=== PATIENT | female | born 1935 | race Caucasian/White ===

== ENCOUNTER → 2016-10-03 | Outpatient (CLI) | payer OTHER, BC ==
--- NOTE | 2016-10-03 15:05 | DIAGNOSTIC IMAGING REPORT ---
L-SPINE MIN 4 VIEWS ROUTINE CLINICAL HISTORY: 80 years-old Female presenting with Acute left-sided low back pain without sciatica lumbar pain. TECHNIQUE: Frontal, lateral, and bilateral oblique views of the lumbar spine were obtained. COMPARISON: None. FINDINGS: Vertebral body heights are maintained. 5 mm of grade 1 anterolisthesis of L3 on L4. Intervertebral disc spaces preserved. No gross evidence of osseous neural foraminal narrowing. Atherosclerosis. Normal bowel gas pattern. Numerous pelvic phleboliths noted. IMPRESSION: 1. Grade 1 anterolisthesis of L3 on L4. Electronically signed by: Corbin Rai 10/03/2016 3:03 PM Dictated Date/Time: 10/03/2016 3:01 PM
[2016-10-03 15:42] LABS: BASO % 1.5 %; BASO ABS # 0.09 K/uL (0-0.2); COMPLETE YES; EOS % 2.6 %; HEMATOCRIT 42.2 % (37-47); IG% 1.1 %; LYMPH % 20.3 %; LYMPH ABS # 1.24 K/uL (1.2-3.4); MEAN CELL VOLUME 90.8 fL (80-100); MEAN CORPUSCULAR HEMOGLOBIN 29.7 pg (25-34); MEAN CORPUSCULAR HGB CONC 32.7 g/dl (32-36); MEAN PLATELET VOLUME 10.6 fL (7.4-10.4); NEUT % 65.5 %; PLATELET COUNT 237 K/uL (130-400); RED BLOOD COUNT 4.65 M/uL (4.2-5.4); WHITE BLOOD COUNT 6.11 K/uL (4.8-10.8)
[2016-10-03 15:50] LABS: URINE APPEARANCE CLEAR (CLEAR); URINE BILIRUBIN NEG (NEG); URINE COLOR YELLOW; URINE NITRITE NEG (NEG); URINE SPECIFIC GRAVITY 1.022 (1.000-1.030); UROBILINOGEN NEG (NEG)
[2016-10-03 16:02] LABS: MANUAL MICROSCOPIC REQUIRED? NO; REVIEW REQ? NO
[2016-10-03 16:08] LABS: ALT/SGPT 25 U/L (12-78); BLOOD UREA NITROGEN 23 mg/dl (7-18); BUN/CREATININE RATIO 23.6 (10-20); CALCIUM 9.5 mg/dl (8.5-10.1); CARBON DIOXIDE 25 mmol/L (21-32); CHLORIDE 110 mmol/L (98-107); CREATININE 0.96 mg/dl (0.60-1.20); GLUCOSE 92 mg/dl (70-99); POTASSIUM 4.4 mmol/L (3.5-5.1); SODIUM 141 mmol/L (136-145)
[2016-10-03 16:11] LABS: ALKALINE PHOSPHATASE 85 U/L (45-117); AST/SGOT 19 U/L (15-37)
== END | disposition home or self-care (01) ==
LOC: C.RAD 14:17
PROVIDERS: ATTEND Nurse Practitioner
DX: M54.5 Low back pain (principal)

== ENCOUNTER → 2016-11-06 | Outpatient (CLI) | payer OTHER, BC ==
--- NOTE | 2016-11-06 12:24 | DIAGNOSTIC IMAGING REPORT ---
LEFT KNEE 1 OR 2 VIEWS ROUTINE CLINICAL HISTORY: M79.662 Pain in patel, left with tibial pain and tenderness. R pain COMPARISON: None. DISCUSSION: Moderate degenerative change all major joint compartments. Osteophytic change superior patella. Potential small loose body secondary to an old avulsion of the superior osteophyte. Margins are well corticated. No significant joint effusion. No acute bony abnormality. There is no evidence for soft tissue swelling. IMPRESSION: Degenerative change. No acute bony abnormality. The above report was generated using voice recognition software. It may contain grammatical, syntax or spelling errors. Electronically signed by: Derrick Estrada M.D. 11/06/2016 12:23 PM Dictated Date/Time: 11/06/2016 12:22 PM
== END | disposition home or self-care (01) ==
LOC: C.RAD 11:54
PROVIDERS: ATTEND Family Medicine
DX: M79.662 Pain in left lower leg (principal); M17.12 Unilateral primary osteoarthritis, left knee

== ENCOUNTER → 2016-11-07 | Outpatient (CLI) | payer OTHER, BC ==
--- NOTE | 2016-11-07 18:38 | DIAGNOSTIC IMAGING REPORT ---
LEFT TIBIA/FIBULA 2 VIEWS ROUTINE CLINICAL HISTORY: Left patel pain. COMPARISON: None. DISCUSSION: No acute fractures are visualized. There is Achilles insertional spur and plantar calcaneal spur. There are no erosive or destructive changes. No soft tissue masses are visualized on conventional radiographic imaging. Degenerative changes are present within the knee. There is a suspected posterior loose body. IMPRESSION: 1. No fractures identified 2. No destructive lesions are visualized. No evidence of pathologic periostitis. Electronically signed by: Anderson Nichole M.D. 11/07/2016 6:37 PM Dictated Date/Time: 11/07/2016 6:36 PM
== END | disposition home or self-care (01) ==
LOC: C.RAD 18:16
PROVIDERS: ATTEND Family Medicine
DX: M79.662 Pain in left lower leg (principal)

== ENCOUNTER → 2016-12-11 | Outpatient (CLI) | payer OTHER, BC ==
[2016-12-11 17:27] LABS: URINE APPEARANCE CLEAR (CLEAR); URINE BILIRUBIN NEG (NEG); URINE COLOR YELLOW; URINE NITRITE NEG (NEG); URINE PH 5.5 (4.5-7.5); URINE SPECIFIC GRAVITY 1.025 (1.000-1.030); UROBILINOGEN NEG (NEG)
[2016-12-11 17:34] LABS: MANUAL MICROSCOPIC REQUIRED? NO; REVIEW REQ? NO
[2016-12-11 17:45] LABS: CHOLESTEROL/HDL RATIO 3.4
[2016-12-12 06:17] LABS: ESTIMATED AVERAGE GLUCOSE 126 mg/dl; HA1C FLAG Normal (Normal)
--- NOTE | 2016-12-20 12:41 | CODING QUERY MEDICAL NECESSITY ---
SUPPORTING DIAGNOSIS NEEDED A supporting diagnosis is required for the test/procedure performed on this patient in order for us to be reimbursed by the patient's insurance. Please provide a supporting diagnosis for the following test/procedure listed below next to the test name along with your signature. *If there is no additional diagnosis for this patient that would support the following test/procedure please document that below next to the test/procedure. Test(s)/Procedure(s) that require a supporting diagnosis: * VITAMIN B12 DIAGNOSIS: * FOLIC ACID DIAGNOSIS: * HEMOGLOBIN A1C DIAGNOSIS: Provider Signature: Date: Thank you Tori Chaney [employer] Once completed, please kindly fax back to [phone] For questions please call [phone]
== END | disposition home or self-care (01) ==
LOC: C.LAB 15:31
PROVIDERS: ATTEND Nurse Practitioner Adult Health
DX: G31.84 Mild cognitive impairment of uncertain or unknown etiology (principal); E78.5 Hyperlipidemia, unspecified; Z13.1 Encounter for screening for diabetes mellitus

== ENCOUNTER → 2016-12-17 | Outpatient (CLI) | payer OTHER, BC ==
--- NOTE | 2016-12-17 12:30 | DIAGNOSTIC IMAGING REPORT ---
BRAIN WITHOUT CONTRAST CLINICAL HISTORY: 81 years-old Female presenting with cognitive impairment. TECHNIQUE: Multisequence, multiplanar MR imaging of the brain was performed without the use of intravenous contrast. IV contrast: None. COMPARISON: None. FINDINGS: Ventricles and sulci normal in size. Minimal periventricular and subcortical white matter T2/FLAIR hyperintensity, nonspecific but likely indicative of chronic small vessel ischemic change. No mass effect or midline shift. No restricted diffusion to suggest acute ischemia. No hemorrhage. No extra-axial fluid collection. T2 skull base flow voids preserved. Bone marrow signal intensity within the calvarium within normal limits. The bilateral prairie band lenses of the globes are absent. IMPRESSION: 1. No acute intracranial abnormality. Electronically signed by: Corbin Rai M.D. 12/17/2016 12:28 PM Dictated Date/Time: 12/17/2016 12:26 PM
== END | disposition home or self-care (01) ==
LOC: C.MRI 10:56
PROVIDERS: ATTEND Nurse Practitioner Adult Health
DX: G31.84 Mild cognitive impairment of uncertain or unknown etiology (principal)

== ENCOUNTER → 2017-03-05 | Outpatient (CLI) | payer OTHER, BC ==
[2017-03-05 17:39] LABS: BASO ABS # 0.06 K/uL (0-0.2); COMPLETE YES; EOS % 2.2 %; HEMATOCRIT 38.3 % (37-47); IG% 0.7 %; LYMPH % 18.3 %; LYMPH ABS # 1.08 K/uL (1.2-3.4); MEAN CELL VOLUME 92.1 fL (80-100); MEAN CORPUSCULAR HEMOGLOBIN 28.4 pg (25-34); MEAN CORPUSCULAR HGB CONC 30.8 g/dl (32-36); MEAN PLATELET VOLUME 11.1 fL (7.4-10.4); MONO % 9.3 %; NEUT % 68.5 %; PLATELET COUNT 276 K/uL (130-400); RED BLOOD COUNT 4.16 M/uL (4.2-5.4); WHITE BLOOD COUNT 5.91 K/uL (4.8-10.8)
== END | disposition home or self-care (01) ==
LOC: C.LABPBG 12:55
PROVIDERS: ATTEND Family Medicine
DX: D64.9 Anemia, unspecified (principal)

== ENCOUNTER → 2017-04-07 | Outpatient (CLI) | payer OTHER, BC ==
[2017-04-07 13:04] LABS: BASO % 1.1 %; BASO ABS # 0.08 K/uL (0-0.2); EOS % 1.6 %; EOS ABS # 0.12 K/uL (0-0.5); HEMATOCRIT 41.9 % (37-47); HEMOGLOBIN 13.3 g/dL (12.0-16.0); IG# 0.08 K/uL (0.00-0.02); LYMPH % 14.5 %; LYMPH ABS # 1.07 K/uL (1.2-3.4); MEAN CELL VOLUME 88.6 fL (80-100); MEAN CORPUSCULAR HEMOGLOBIN 28.1 pg (25-34); MEAN CORPUSCULAR HGB CONC 31.7 g/dl (32-36); MEAN PLATELET VOLUME 10.7 fL (7.4-10.4); MONO % 7.2 %; MONO ABS # 0.53 K/uL (0.11-0.59); NEUT % 74.5 %; NEUT ABS # 5.49 K/uL (1.4-6.5); PLATELET COUNT 284 K/uL (130-400); RED CELL DISTRIBUTION WIDTH CV 14.6 % (11.5-14.5); RED CELL DISTRIBUTION WIDTH SD 47.2 fL (36.4-46.3); WHITE BLOOD COUNT 7.37 K/uL (4.8-10.8)
== END | disposition home or self-care (01) ==
LOC: C.LABPBG 08:22
PROVIDERS: ATTEND Family Medicine
DX: D64.9 Anemia, unspecified (principal)

== ENCOUNTER → 2017-08-20 | Outpatient (CLI) | payer OTHER, BC ==
[2017-08-20 13:30] LABS: BASO % 1.8 %; BASO ABS # 0.09 K/uL (0-0.2); EOS % 4.9 %; EOS ABS # 0.24 K/uL (0-0.5); HEMATOCRIT 44.4 % (37-47); HEMOGLOBIN 14.6 g/dL (12.0-16.0); IG# 0.05 K/uL (0.00-0.02); LYMPH % 24.2 %; LYMPH ABS # 1.18 K/uL (1.2-3.4); MEAN CELL VOLUME 89.2 fL (80-100); MEAN CORPUSCULAR HEMOGLOBIN 29.3 pg (25-34); MEAN CORPUSCULAR HGB CONC 32.9 g/dl (32-36); MEAN PLATELET VOLUME 10.5 fL (7.4-10.4); MONO % 10.5 %; MONO ABS # 0.51 K/uL (0.11-0.59); NEUT % 57.6 %; PLATELET COUNT 261 K/uL (130-400); RED CELL DISTRIBUTION WIDTH CV 14.5 % (11.5-14.5); RED CELL DISTRIBUTION WIDTH SD 47.4 fL (36.4-46.3); WHITE BLOOD COUNT 4.87 K/uL (4.8-10.8)
[2017-08-20 13:46] LABS: HEMOGLOBIN A1C 5.9 % (4.5-5.6)
[2017-08-20 14:35] LABS: ALT/SGPT 21 U/L (12-78); AST/SGOT 20 U/L (15-37); BLOOD UREA NITROGEN 14 mg/dl (7-18); CALCIUM 9.9 mg/dl (8.5-10.1); CARBON DIOXIDE 26 mmol/L (21-32); CHOLESTEROL 259 mg/dl (0-200); CREATININE 0.88 mg/dl (0.60-1.20); GLUCOSE 110 mg/dl (70-99); LDL CHOLESTEROL CALCULATED 155 mg/dl; POTASSIUM 4.5 mmol/L (3.5-5.1); SODIUM 140 mmol/L (136-145)
== END | disposition home or self-care (01) ==
LOC: C.LABPBG 07:58
PROVIDERS: ATTEND Family Medicine
DX: D64.9 Anemia, unspecified (principal); E78.5 Hyperlipidemia, unspecified; R73.03 Prediabetes

== ENCOUNTER 2018-10-05 17:05 | Observation (INO) ==
[2018-10-05] MEDS ORDERED: HydrALAZINE HCL 20 MG/ML VIAL IV ONE ×2 (18:13→19:52)
[2018-10-05 18:45] LABS: Basophils % (auto) 1.4 %; Eosinophils # (auto) 0.17 K/uL (0-0.5); Eosinophils % (auto) 2.4 %; Hematocrit (blood only) 45.2 % (37-47); Hemoglobin 15.3 g/dL (12.0-16.0); Immature Granulocytes # (auto) 0.07 K/uL (0.00-0.02); Lymphocytes # (auto) 1.55 K/uL (1.2-3.4); Mean Corpuscular Hgb Conc 33.8 g/dL (32-36); Mean Corpuscular Volume 89.3 fL (80-100); Monocytes # (auto) 0.78 K/uL (0.11-0.59); Monocytes % (auto) 11.1 %; Neutrophils # (auto) 4.36 K/uL (1.4-6.5); Neutrophils % (auto) 62.1 %; Platelet Count 246 K/uL (130-400); RDW Standard Deviation 45.7 fL (36.4-46.3); Red Blood Count 5.06 M/uL (4.2-5.4); White Blood Count 7.03 K/uL (4.8-10.8)
[2018-10-05 19:00] LABS: Partial Thromboplastin Time 25.9 Seconds (21.0-31.0); Prothrombin Time 10.2 Seconds (9.0-12.0)
[2018-10-05 19:01] LABS: Alanine Aminotransferase 22 U/L (12-78); Albumin Level 3.8 gm/dl (3.4-5.0); Aspartate Aminotransferase 15 U/L (15-37); BUN Creatinine Ratio 29.6 (10-20); Blood Urea Nitrogen 26 mg/dl (7-18); Calcium 9.9 mg/dl (8.5-10.1); Carbon Dioxide 27 mmol/L (21-32); Chloride 108 mmol/L (98-107); Creatinine Clr Calc Pharmacy 56.2 ml/min; Est GFR (African American) 72.4; Est GFR (Non-African American) 62.5; Glucose 92 mg/dl (70-99); Magnesium 2.2 mg/dl (1.8-2.4); Potassium 4.5 mmol/L (3.5-5.1); Sodium 141 mmol/L (136-145)
[2018-10-05 19:06] LABS: Albumin Globulin Ratio 1.1 (0.9-2); Alkaline Phosphatase 123 U/L (45-117); Bilirubin,Total 0.8 mg/dl (0.2-1); Globulin 3.5 gm/dl (2.5-4.0); Total Protein 7.3 gm/dl (6.4-8.2); Troponin I < 0.015 ng/ml (0-0.045)
--- NOTE | 2018-10-05 19:18 | Emergency Department Note ---
Entered by Latanya Waller acting as a scribe for History of Present Illness General Chief complaint: Referred by Doctor Stated complaint: DOUBLE VISION Source: patient History of Present Illness Onset (ago): day(s) (several ) Location: eyes Pain Consistency: + other (persistent ) Maximum Pain Intensity: 4 Quality: + other (double vision) Associated symptoms: + headaches (intermittent) and + other (negative speech difficulties); no weakness The patient is a 82 year old female who presents to the Emergency Room with complaints of persistent double vision that began several days prior to arrival. The patient states that she has had an intermittent headache during this time and states that she currently has one. She denies weakness and speech difficulties. The patient states that she went to the eye doctor today and sent to the ED. The patient denies any medical history, and states that she is not currently on blood thinners or blood pressure medications. She denies being a smoker. Home Medications Home Medications Medication Instructions Recorded Confirmed Type atorvastatin 20 mg tablet 20 mg PO DAILY #90 tab 09/07/18 10/05/18 Rx latanoprost 1 drp OPR HS 10/05/18 10/05/18 History Allergies Allergy/AdvReac Type Severity Reaction Status Date / Time No Known Allergies Allergy Unverified 10/05/18 18:17 Past Med/Surg History Medical History No significant past medical history Social History Feels Safe at Home: Yes Smoking Status: Never smoker Review of Systems See HPI for pertinent positives & negatives. and A total of 10 systems reviewed and were otherwise negative Physical Exam Vital Signs Vital Signs - 24 hr 10/05/18 17:09 10/05/18 19:05 10/05/18 19:49 Temperature 36.5 C Temperature Source Oral Sepsis Recent Fever Within 48 Hours No Sepsis Action Taken by Nursing No Action Required Pulse Rate 85 Pulse Rate [Right Finger] 82 85 Respiratory Rate 18 18 18 Respiratory Effort / Characteristics Non-Labored Spontaneous Non-Labored Spontaneous Non-Labored Spontaneous Respiratory Depth Normal Normal Normal Respiratory Pattern Regular Regular Blood Pressure 189/93 H Blood Pressure [Right Arm] 201/87 H 195/80 H Blood Pressure Mean 125 Blood Pressure Mean [Right Arm] 125 118 Blood Pressure Position [Right Arm] Lying Lying Pulse Oximetry 93 97 97 Oxygen Delivery Method Room Air Room Air Room Air 10/05/18 20:54 Temperature Temperature Source Sepsis Recent Fever Within 48 Hours Sepsis Action Taken by Nursing Pulse Rate Pulse Rate [Right Finger] 90 Respiratory Rate 18 Respiratory Effort / Characteristics Non-Labored Spontaneous Respiratory Depth Normal Respiratory Pattern Regular Blood Pressure Blood Pressure [Right Arm] 154/88 H Blood Pressure Mean Blood Pressure Mean [Right Arm] 110 Blood Pressure Position [Right Arm] Lying Pulse Oximetry 96 Oxygen Delivery Method Room Air Vital signs reviewed. General: Well-appearing elderly 82 year old female, in no significant distress. HEENT: No scleral icterus, PERRLA, neck supple. Atraumatic. Cardiovascular: Regular rate and rhythm, no extra sounds. Pulmonary: Clear to auscultation bilaterally, normal work of breathing. Abdomen: Soft, nontender, nondistended, positive bowel sounds. Musculoskeletal: Atraumatic, no peripheral edema. Neurologic: Patient awake alert and oriented x 3, full strength in all 4 extremities. Cranial nerves 2 through 12 grossly intact. Intact finger to nose. Negative pronator drift. Closes right eye with finger to nose, but no ataxia Skin: Warm, dry, no rash Course 1809: Past medical records reviewed. The patient was evaluated in room C2B. A complete history and physical exam was performed. 2116: I checked on and updated the patient on all results. Case was referred to Dr. Mir -[facility] Hospitalist who accepts the patient for further evaluation. Administered Medications Ioversol (Optiray 320 100ml) 120 ml IV ONCE PRN PRN Reason: Interaction Checking Stop: 10/09/18 21:16 Last Admin: 10/05/18 21:17 Dose: 120 ml Documented by: [id number] Discontinued Medications Hydralazine HCl (Hydralazine Hcl) 5 mg IV NOW ONE Stop: 10/05/18 18:14 Last Admin: 10/05/18 18:48 Dose: 5 mg Documented by: [id number] Hydralazine HCl (Hydralazine Hcl) 5 mg IV NOW ONE Stop: 10/05/18 19:53 Last Admin: 10/05/18 19:56 Dose: 5 mg Documented by: [id number] Medical Decision Making Differential Diagnosis Differential diagnosis: Etiologies such as metabolic, infection, hypo/hyperglycemia, electrolyte abnormalities, cardiac sources, intracerebral event, toxicologic, neurologic, as well as others were entertained. Medical Records Attestation: I reviewed the patient's medical records. Home Medications Current Medication List: was personally reviewed by me Laboratory Data Attestation: I reviewed the patient's lab results. Result diagrams: 10/05/18 18:35 10/05/18 18:35 Lab Results 10/05/18 10/05/18 10/05/18 Range/Units 18:33 18:35 18:35 WBC 7.03 (4.8-10.8) K/uL RBC 5.06 (4.2-5.4) M/uL Hgb 15.3 (12.0-16.0) g/dL Hct 45.2 (37-47) % MCV 89.3 (80-100) fL MCH 30.2 (25-34) pg MCHC 33.8 (32-36) g/dL RDW Std Deviation 45.7 (36.4-46.3) fL RDW Coeff of Guerrero 14.0 (11.5-14.5) % Plt Count 246 (130-400) K/uL MPV 10.0 (7.4-10.4) fL Immature Gran % (Auto) 1.0 % Neut % (Auto) 62.1 % Lymph % (Auto) 22.0 % [place] % (Auto) 11.1 % Eos % (Auto) 2.4 % Baso % (Auto) 1.4 % Immature Gran # (Auto) 0.07 H (0.00-0.02) K/uL Neut # (Auto) 4.36 (1.4-6.5) K/uL Lymph # (Auto) 1.55 (1.2-3.4) K/uL [place] # (Auto) 0.78 H (0.11-0.59) K/uL Eos # (Auto) 0.17 (0-0.5) K/uL Baso # (Auto) 0.10 (0-0.2) K/uL PT 10.2 (9.0-12.0) Seconds INR 1.0 (0.9-1.1) APTT 25.9 (21.0-31.0) Seconds PTT Ratio 1.0 Sodium (136-145) mmol/L Potassium (3.5-5.1) mmol/L Chloride (98-107) mmol/L Carbon Dioxide (21-32) mmol/L Anion Gap (3-11) BUN (7-18) mg/dl Creatinine (0.6-1.2) mg/dl Est Cr Clr Drug Dosing ml/min Est GFR ( Amer) Est GFR (Non-Af Amer) BUN/Creatinine Ratio (10-20) Glucose (70-99) mg/dl POC Glucose 102 H (70-99) Calcium (8.5-10.1) mg/dl Magnesium (1.8-2.4) mg/dl Total Bilirubin (0.2-1) mg/dl AST (15-37) U/L ALT (12-78) U/L Alkaline Phosphatase (45-117) U/L Troponin I (0-0.045) ng/ml Total Protein (6.4-8.2) gm/dl Albumin (3.4-5.0) gm/dl Globulin (2.5-4.0) gm/dl Albumin/Globulin Ratio (0.9-2) 10/05/18 Range/Units 18:35 WBC (4.8-10.8) K/uL RBC (4.2-5.4) M/uL Hgb (12.0-16.0) g/dL Hct (37-47) % MCV (80-100) fL MCH (25-34) pg MCHC (32-36) g/dL RDW Std Deviation (36.4-46.3) fL RDW Coeff of Guerrero (11.5-14.5) % Plt Count (130-400) K/uL MPV (7.4-10.4) fL Immature Gran % (Auto) % Neut % (Auto) % Lymph % (Auto) % [place] % (Auto) % Eos % (Auto) % Baso % (Auto) % Immature Gran # (Auto) (0.00-0.02) K/uL Neut # (Auto) (1.4-6.5) K/uL Lymph # (Auto) (1.2-3.4) K/uL [place] # (Auto) (0.11-0.59) K/uL Eos # (Auto) (0-0.5) K/uL Baso # (Auto) (0-0.2) K/uL PT (9.0-12.0) Seconds INR (0.9-1.1) APTT (21.0-31.0) Seconds PTT Ratio Sodium 141 (136-145) mmol/L Potassium 4.5 (3.5-5.1) mmol/L Chloride 108 H (98-107) mmol/L Carbon Dioxide 27 (21-32) mmol/L Anion Gap 6.0 (3-11) BUN 26 H (7-18) mg/dl Creatinine 0.87 (0.6-1.2) mg/dl Est Cr Clr Drug Dosing 56.2 ml/min Est GFR ( Amer) 72.4 Est GFR (Non-Af Amer) 62.5 BUN/Creatinine Ratio 29.6 H (10-20) Glucose 92 (70-99) mg/dl POC Glucose (70-99) Calcium 9.9 (8.5-10.1) mg/dl Magnesium 2.2 (1.8-2.4) mg/dl Total Bilirubin 0.8 (0.2-1) mg/dl AST 15 (15-37) U/L ALT 22 (12-78) U/L Alkaline Phosphatase 123 H (45-117) U/L Troponin I < 0.015 (0-0.045) ng/ml Total Protein 7.3 (6.4-8.2) gm/dl Albumin 3.8 (3.4-5.0) gm/dl Globulin 3.5 (2.5-4.0) gm/dl Albumin/Globulin Ratio 1.1 (0.9-2) Imaging Data Radiologist's Impression: Radiology results as stated below per my review and t he radiologist's interpretation: CT OF THE HEAD WITHOUT CONTRAST CLINICAL HISTORY: Stroke evaluation COMPARISON STUDY: MRI of the brain December 17, 2016. CT DOSE: 537.48 mGy.cm TECHNIQUE: Helical axial images of the head were obtained without IV contrast. Automated exposure control was utilized for the study. A dose lowering technique was utilized adhering to the principles of ALARA. FINDINGS: No acute intracranial hemorrhage, midline shift or mass effect is present. The ventricular system is unremarkable. The basilar cisterns are patent. No extra-axial collections are present. There are no findings to suggest acute dural sinus thrombosis or acute territorial infarct. No significant calvarial abnormalities are present. Visualized portions of the sinuses and mastoid air cells are clear. IMPRESSION: No acute intracranial findings. Electronically signed by: Beny Javed M.D. 10/05/2018 7:35 PM MRI OF THE BRAIN WITHOUT CONTRAST CLINICAL HISTORY: stroke, diplopia COMPARISON STUDY: MRI of the brain December 17, 2016. Head CT performed earlier today. TECHNIQUE: Utilizing a 1.5 Deepali magnet and dedicated coil, multiplanar, multiecho imaging of the brain was performed without IV contrast. FINDINGS: There are no foci of restricted diffusion to suggest acute infarct. No acute intracranial hemorrhage, midline shift or mass effect is present. Ventricular system is stable. Mild white matter T2 hyperintense foci are similar to previous MRI and suggest small vessel disease. There is mild atrophy. Basilar cisterns are patent. There are no extra-axial collections. Flow-voids for the major intracranial vessels are present. No intracranial masses are identified on this unenhanced study. IMPRESSION: No acute intracranial findings. Electronically signed by: Beny Javed M.D. 10/05/2018 8:57 PM CTA ANGIOGRAPHY OF THE HEAD CLINICAL HISTORY: CVA Sx COMPARISON STUDY: No previous studies for comparison. TECHNIQUE: Due to IV malfunction, a second scan was performed. The patient received a total of approximately 180 cc of Optiray 320 IV. Helical axial images of the head were obtained. Automated exposure control was utilized for the study. A dose lowering technique was utilized adhering to the principles of ALARA. CT DOSE: 1106.89 mGy.cm FINDINGS: No acute intracranial hemorrhage, midline shift or mass effect is present. The ventricular system is unremarkable. The basilar cisterns are patent. The bilateral M1, M2, A1 and A2 segments are patent. There is no intracranial aneurysm or abrupt vessel cut off. There is moderate stenosis of the left posterior cerebral artery shown on axial image 90 of 235. There is mild plaque within bilateral cavernous carotids without stenosis. IMPRESSION: 1. No intracranial aneurysm or abrupt vessel cut off. 2. 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 Electronically signed by: Beny Javed M.D. 10/05/2018 9:[address] ANGIOGRAPHY OF THE NECK WITH CONTRAST CLINICAL HISTORY: CVA sx COMPARISON STUDY: No previous studies for comparison. Technique: CT angiography of the carotid and vertebral arteries was obtained using Optiray 320 IV and 3D reconstruction on an independent workstation. NASCET criteria was utilized. Automated exposure control was utilized for the study. A dose lowering technique was utilized adhering to the principles of ALARA. Due to IV malfunction, a second injection was performed. The patient received approximately 180 cc of Optiray 320 IV. Findings: Incidental note is made of a 6 mm left upper lobe nodule on image 75 of 346. No cervical lymphadenopathy. There is no cervical spine acute fracture. Postoperative findings within the cervical spine are noted. Retropharyngeal carotids are noted. There is mild atherosclerotic plaque within the major vessels of the neck without stenosis. There is mild stenosis of the left vertebral artery at the C2 level. The CTA of the head will be reported separately. The bilateral vertebral arteries are patent. The left common carotid artery arises from the brachiocephalic trunk. There is extensive vascular calcification within the aortic arch. Crescentic peripherally calcified plaque of the aortic isthmus is noted. IMPRESSION: 1. Mild atherosclerotic plaque within the major vessels of the neck. No stenosis within the bilateral common carotid or cervical internal carotid arteries. 2. Mild stenosis of the left vertebral artery at the C2 level. 3. Crescentic peripherally calcified plaque of the aortic isthmus. This may simply reflect plaque or short segment type B dissection which is of doubtful significance. 4. Indeterminate 6 mm left upper lobe pulmonary nodule. A follow-up chest CT in 6 months is recommended. Electronically signed by: Beny Javed M.D. 10/05/2018 9:41 PM Dictated: 10/05/182132 Transcribed: 10/05/182132 ECG Data Attestation: I personally reviewed and interpreted this ECG as follows: Indication: weakness Rate (beats per minute): 78 Rhythm: sinus rhythm Findings: + other (QTC 399), + PVC and + T-wave inversion (Lateral); no acute ischemic change Blood Pressure Blood Pressure Findings: Elevated blood pressure Blood Pressure Disposition: further management by hospitalist TRINH Narrative This patient was evaluated and appeared to be in no significant distress. IV access was obtained and laboratory work was drawn. 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 EKG reveals a sinus rhythm without dysrhythmia, lateral T wave inversions are noted. CT scan of the head was performed and is negative. Patient was given 5 mg of IV hydralazine for notable hypertension. This was moderately successful and a repeat dose of 5 mg IV was ordered. MRI of the brain was performed and is negative for acute findings. As the patient has no history of hypertension or visual difficulties and has a subacute onset of diplopia, I feel is in the patient's best interest to be evaluated by the hospitalist service for further management. CT angiogram of the head and neck was ordered and studies are read as above. Case was referred to Dr. Singh for admission and further management. Patient and daughter are aware of the plan and agree. Impression & Plan Symptoms of cerebrovascular accident (CVA), Diplopia, Hypertension Discharge Plan Visit Data Chief Complaint: Referred by Doctor Stated Complaint: DOUBLE VISION ED Provider: Cassandra Estrada Discharge Problem: Symptoms of cerebrovascular accident (CVA), Diplopia, Hypertension Patient Disposition: Being Evaluated by Hospitalist Forms Stand Alone Forms: My [facility] [place] [employer] Prescriptions Prescriptions: No Action atorvastatin 20 mg tablet 20 mg PO DAILY Qty: 90 RF: 1 latanoprost 0.005 % drops 1 drp OPR HS RF: 0 Referrals Referrals: Kimmie Pedroza DO [Primary Care Provider] - The scribe's documentation has been prepared under my direction and personally reviewed by me in its entirety. I confirm that the note above accurately reflec ts all work, treatment, procedures, and medical decision making performed by me.
--- NOTE | 2018-10-05 19:37 | CT Scan Report ---
CT OF THE HEAD WITHOUT CONTRAST CLINICAL HISTORY: Stroke evaluation COMPARISON STUDY: MRI of the brain December 17, 2016. CT DOSE: 537.48 mGy.cm TECHNIQUE: Helical axial images of the head were obtained without IV contrast. Automated exposure con trol was utilized for the study. A dose lowering technique was utilized adhering to the principles o f ALARA. FINDINGS: No acute intracranial hemorrhage, midline shift or mass effect is present. The ventricular system is unremarkable. The basilar cisterns are patent. No extra-axial collections are present. Ther e are no findings to suggest acute dural sinus thrombosis or acute territorial infarct. No significan t calvarial abnormalities are present. Visualized portions of the sinuses and mastoid air cells are c lear. IMPRESSION: No acute intracranial findings. Electronically signed by: Beny Javed M.D. 10/05/2018 7:35 PM
--- NOTE | 2018-10-05 20:58 | Magnetic Resonance Report ---
MRI OF THE BRAIN WITHOUT CONTRAST CLINICAL HISTORY: stroke, diplopia COMPARISON STUDY: MRI of the brain December 17, 2016. Head CT performed earlier today. TECHNIQUE: Utilizing a 1.5 Deepali magnet and dedicated coil, multiplanar, multiecho imaging of the bra in was performed without IV contrast. FINDINGS: There are no foci of restricted diffusion to suggest acute infarct. No acute intracranial h emorrhage, midline shift or mass effect is present. Ventricular system is stable. Mild white matter T 2 hyperintense foci are similar to previous MRI and suggest small vessel disease. There is mild atrop hy. Basilar cisterns are patent. There are no extra-axial collections. Flow-voids for the major intra cranial vessels are present. No intracranial masses are identified on this unenhanced study. IMPRESSION: No acute intracranial findings. Electronically signed by: Beny Javed M.D. 10/05/2018 8:57 PM
[2018-10-05] MEDS ORDERED: IOVERSOL 100ml IV PRN (21:17)
--- NOTE | 2018-10-05 21:43 | CT Scan Report ---
CT ANGIOGRAPHY OF THE NECK WITH CONTRAST CLINICAL HISTORY: CVA sx COMPARISON STUDY: No previous studies for comparison. Technique: CT angiography of the carotid and vertebral arteries was obtained using Optiray 320 IV and 3D reconstruction on an independent workstation. NASCET criteria was utilized. Automated exposure c ontrol was utilized for the study. A dose lowering technique was utilized adhering to the principles of ALARA. Due to IV malfunction, a second injection was performed. The patient received approximatel y 180 cc of Optiray 320 IV. Findings: Incidental note is made of a 6 mm left upper lobe nodule on image 75 of 346. No cervical ly mphadenopathy. There is no cervical spine acute fracture. Postoperative findings within the cervical spine are noted. Retropharyngeal carotids are noted. There is mild atherosclerotic plaque within the major vessels of the neck without stenosis. There is mild stenosis of the left vertebral artery at th e C2 level. The CTA of the head will be reported separately. The bilateral vertebral arteries are pat ent. The left common carotid artery arises from the brachiocephalic trunk. There is extensive vascula r calcification within the aortic arch. Crescentic peripherally calcified plaque of the aortic isthmu s is noted. IMPRESSION: 1. Mild atherosclerotic plaque within the major vessels of the neck. No stenosis within the bilateral common carotid or cervical internal carotid arteries. 2. Mild stenosis of the left vertebral artery at the C2 level. 3. Crescentic peripherally calcified plaque of the aortic isthmus. This may simply reflect plaque or short segment type B dissection which is of doubtful significance. 4. Indeterminate 6 mm left upper lobe pulmonary nodule. A follow-up chest CT in 6 months is recommend ed. Electronically signed by: Beny Javed M.D. 10/05/2018 9:41 PM
--- NOTE | 2018-10-05 21:46 | CT Scan Report ---
CTA ANGIOGRAPHY OF THE HEAD CLINICAL HISTORY: CVA Sx COMPARISON STUDY: No previous studies for comparison. TECHNIQUE: Due to IV malfunction, a second scan was performed. The patient received a total of approx imately 180 cc of Optiray 320 IV. Helical axial images of the head were obtained. Automated exposure control was utilized for the study. A dose lowering technique was utilized adhering to the principl es of ALA. CT DOSE: 1106.89 mGy.cm FINDINGS: No acute intracranial hemorrhage, midline shift or mass effect is present. The ventricular system is unremarkable. The basilar cisterns are patent. The bilateral M1, M2, A1 and A2 segments are patent. There is no intracranial aneurysm or abrupt vessel cut off. There is moderate stenosis of th e left posterior cerebral artery shown on axial image 90 of 235. There is mild plaque within bilatera l cavernous carotids without stenosis. IMPRESSION: 1. No intracranial aneurysm or abrupt vessel cut off. 2. 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 Electronically signed by: Beny Javed M.D. 10/05/2018 9:44 PM
--- NOTE | 2018-10-05 22:41 | History & Physical Report ---
Date of Service October 05, 2018 Assessment & Plan (1) Binocular vision disorder with diplopia: 82-year-old female was admitted on 05 October 2018 for diplopia and hypertensive urgency. Binocular diplopia, headache: New onset over past 3 days. Referred by her belting cutter apparently to eval for CVA. By report, belting cutter noticed a slight discrepancy between the eyes on downward gaze. Patient denies history of trauma, infectious symptoms, or previous diplopia. No focal neuro deficits on remainder of exam. - In ED, afebrile, not tachycardic or tachypneic, noted hypertension max 201/87, normal room SpO2. WBC 7. BUN 26 and normal creatinine. TnI negative. EKG NSR [address] of the head and MRI brain noted no acute intracranial findings. 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 - No present evidence of trauma, vascular or neoplastic issue, or acute infectious issue. This may all be due to an intraocular muscle problem. Will provide some IVF as her BUN is elevated. Tylenol as needed for headache. Monitor for now. - Will order some hypercoagulable labs. Hypertensive urgency vs emergency: ED max BP 201/87. Denies any known history of hypertension. Her diplopia does not seem to be an acute focal neuro deficit. - In ED, treated with hydralazine 5 mg IV x 2. - Will give a single dose of metoprolol tartrate 12.5 mg p.o. Goal for now to keep SBP < 180. Will use metoprolol 5 mg IV as needed for this. Monitor blood pressure overnight. Ongoing medical issues: - Hyperlipidemia: Continue home atorvastatin. 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 - Question of dementia: Patient's daughter says there is some concern for this. Code status: Full code. Diet: Regular. DVT prophy: Lovenox. PT/OT: Deferred. Disbo: Admit for observation to med telemetry (to allow for metoprolol IV dosing). (2) Headache: (3) Hypertensive urgency: (4) Hyperlipidemia: (5) Glaucoma: History of Present Illness Primary Care Provider: Kimmie Pedroza DO 82-year-old female is accompanied by her daughter after being referred by her [place] belting cutter (who she has been seen for years including for glaucoma) for double vision. - Patient states over the past 3 days she is noticed the new onset of double vision. For example, she states that it looks like there are to electrical outlets on the wall, one above the other, in her ED exam room. She denies any history of same. Her daughter says that while being examined by her eye doctor that there was a small discrepancy in the movement of both of her eyes on downward gaze. Otherwise they were told there were no issues found. - Concurrently, patient says that she has had the new onset of a frontal and occipital headache over the same 3 days. Says that it lasts for seconds to perhaps a minutes, resolves, but occurs multiple times throughout the day. Denies any particular association with her double vision. Denies any history of chronic headaches, known fevers or chills, neck pain, nausea or vomiting, head injuries, adventist pain, or other local concerns. - On review of systems, patient denies other acute concerns. When noted her blood pressure is quite high, she says she has no known hypertensive history. No known history of stroke or other neurologic issues as well. - Past medical history includes glaucoma, hyperlipidemia, low back pain, question neck pain. - Past surgical history includes hysterectomy, , possibly lumbar fusion, possibly cervical vertebral surgery. - Social history includes never smoking. Denies alcohol use. Lives at home with her . Daughter nearby. Allergies Allergy/AdvReac Type Severity Reaction Status Date / Time No Known Allergies Allergy Unverified 10/05/18 18:17 Home Medications Home Medications Medication Instructions Recorded Confirmed Type latanoprost 1 drp OPR HS 10/05/18 10/05/18 History aspirin [Aspirin Low Dose] 81 mg PO DAILY #30 tab 10/06/18 Rx atorvastatin 40 mg PO DAILY 30 Days #30 tab 10/06/18 Rx metoprolol succinate 25 mg PO QAM 30 Days #30 tab 10/06/18 Rx Past Med/Surg History Medical History No significant past medical history Social History Preferred Language: Frisian Communication Ability: Effective Beliefs That Will Affect Care: None Current Living Situation: Spouse Feels Safe at Home: Yes Smoking Status: Never smoker Hx Alcohol Use: No Hx Substance Use: No Review of Systems Review of Systems: Constitutional: Denies fevers, chills, focal weakness Eyes: Positive for diplopia. Denies visual field deficits or difficulty with eye movement. ENT: Denies any ear/nose/throat pain or difficulty speaking or swallowing Respiratory: Denies any dyspnea, cough, hemoptysis Cardiovascular: Denies any chest pain or feeling of edema Gastrointestinal: Denies any abdominal pain, nausea/vomiting/diarrhea Musculoskeletal: Denies any acute extremity pains, myalgias, or focal weakness Skin: Denies any known acute rashes or lesions Neuro: Denies any headache, acute focal weakness or numbness, or difficulties with speech or swallow. Physical Exam Physical Exam: GENERAL: Awake, alert, well-appearing, in no acute distress. HENT: Normocephalic, atraumatic. Oropharynx unremarkable. No tenderness over bilateral temples. EYES: PERRL, EOMI bilaterally. Normal conjunctivae. Sclera nonicteric. Pat ient notes vertical diplopia with both eyes open. She says this immediately resolves upon covering either eye, but then returns with both eyes open again. NECK: Inspection normal. Supple and full ROM. No nuchal rigidity. No tenderness to palpation along midline or bilateral paraspinal muscles. CARDIAC: +S1S2 RRR with occasional early beats, no murmurs. RESPIRATORY: Clear to auscultation. No wheezes or rales. Normal respiratory effort. GI: +BS, soft, non-distended. No tenderness to palpation. No rebound or guarding. EXTREMITIES: No pedal edema or calf tenderness. Moving all extremities naturally and easily. NEURO: No gross neuro deficits with exception of diplopia as above. Results & Data Vital Signs (Past 12 Hours) Vital Signs Temp Pulse Pulse Resp BP BP Pulse Ox 10/05/18 22:32 97 H 18 149/100 H 96 10/05/18 20:54 90 18 154/88 H 96 10/05/18 19:49 85 18 195/80 H 97 10/05/18 19:05 82 18 201/87 H 97 10/05/18 17:09 36.5 C 85 18 189/93 H 93 Laboratory Results 10/05/18 10/05/18 10/05/18 Range/Units 18:35 18:35 18:35 WBC 7.03 (4.8-10.8) K/uL RBC 5.06 (4.2-5.4) M/uL Hgb 15.3 (12.0-16.0) g/dL Hct 45.2 (37-47) % MCV 89.3 (80-100) fL MCH 30.2 (25-34) pg MCHC 33.8 (32-36) g/dL RDW Std Deviation 45.7 (36.4-46.3) fL RDW Coeff of Guerrero 14.0 (11.5-14.5) % Plt Count 246 (130-400) K/uL MPV 10.0 (7.4-10.4) fL Immature Gran % (Auto) 1.0 % Neut % (Auto) 62.1 % Lymph % (Auto) 22.0 % [place] % (Auto) 11.1 % Eos % (Auto) 2.4 % Baso % (Auto) 1.4 % Immature Gran # (Auto) 0.07 H (0.00-0.02) K/uL Neut # (Auto) 4.36 (1.4-6.5) K/uL Lymph # (Auto) 1.55 (1.2-3.4) K/uL [place] # (Auto) 0.78 H (0.11-0.59) K/uL Eos # (Auto) 0.17 (0-0.5) K/uL Baso # (Auto) 0.10 (0-0.2) K/uL PT 10.2 (9.0-12.0) Seconds INR 1.0 (0.9-1.1) APTT 25.9 (21.0-31.0) Seconds PTT Ratio 1.0 Sodium 141 (136-145) mmol/L Potassium 4.5 (3.5-5.1) mmol/L Chloride 108 H (98-107) mmol/L Carbon Dioxide 27 (21-32) mmol/L Anion Gap 6.0 (3-11) BUN 26 H (7-18) mg/dl Creatinine 0.87 (0.6-1.2) mg/dl Est Cr Clr Drug Dosing 56.2 ml/min Est GFR ( Amer) 72.4 Est GFR (Non-Af Amer) 62.5 BUN/Creatinine Ratio 29.6 H (10-20) Glucose 92 (70-99) mg/dl POC Glucose (70-99) Calcium 9.9 (8.5-10.1) mg/dl Magnesium 2.2 (1.8-2.4) mg/dl Total Bilirubin 0.8 (0.2-1) mg/dl AST 15 (15-37) U/L ALT 22 (12-78) U/L Alkaline Phosphatase 123 H (45-117) U/L Troponin I < 0.015 (0-0.045) ng/ml Total Protein 7.3 (6.4-8.2) gm/dl Albumin 3.8 (3.4-5.0) gm/dl Globulin 3.5 (2.5-4.0) gm/dl Albumin/Globulin Ratio 1.1 (0.9-2) /11/16 Range/Units 18:33 WBC (4.8-10.8) K/uL RBC (4.2-5.4) M/uL Hgb (12.0-16.0) g/dL Hct (37-47) % MCV (80-100) fL MCH (25-34) pg MCHC (32-36) g/dL RDW Std Deviation (36.4-46.3) fL RDW Coeff of Guerrero (11.5-14.5) % Plt Count (130-400) K/uL MPV (7.4-10.4) fL Immature Gran % (Auto) % Neut % (Auto) % Lymph % (Auto) % [place] % (Auto) % Eos % (Auto) % Baso % (Auto) % Immature Gran # (Auto) (0.00-0.02) K/uL Neut # (Auto) (1.4-6.5) K/uL Lymph # (Auto) (1.2-3.4) K/uL [place] # (Auto) (0.11-0.59) K/uL Eos # (Auto) (0-0.5) K/uL Baso # (Auto) (0-0.2) K/uL PT (9.0-12.0) Seconds INR (0.9-1.1) APTT (21.0-31.0) Seconds PTT Ratio Sodium (136-145) mmol/L Potassium (3.5-5.1) mmol/L Chloride (98-107) mmol/L Carbon Dioxide (21-32) mmol/L Anion Gap (3-11) BUN (7-18) mg/dl Creatinine (0.6-1.2) mg/dl Est Cr Clr Drug Dosing ml/min Est GFR ( Amer) Est GFR (Non-Af Amer) BUN/Creatinine Ratio (10-20) Glucose (70-99) mg/dl POC Glucose 102 H (70-99) Calcium (8.5-10.1) mg/dl Magnesium (1.8-2.4) mg/dl Total Bilirubin (0.2-1) mg/dl AST (15-37) U/L ALT (12-78) U/L Alkaline Phosphatase (45-117) U/L Troponin I (0-0.045) ng/ml Total Protein (6.4-8.2) gm/dl Albumin (3.4-5.0) gm/dl Globulin (2.5-4.0) gm/dl Albumin/Globulin Ratio (0.9-2) Medications Administered Ioversol (Optiray 320 100ml) 120 ml IV ONCE PRN PRN Reason: Interaction Checking Stop: 10/09/18 21:16 Last Admin: 10/05/18 21:17 Dose: 120 ml Documented by: [id number] Discontinued Medications Hydralazine HCl (Hydralazine Hcl) 5 mg IV NOW ONE Stop: 10/05/18 18:14 Last Admin: 10/05/18 18:48 Dose: 5 mg Documented by: [id number] Hydralazine HCl (Hydralazine Hcl) 5 mg IV NOW ONE Stop: 10/05/18 19:53 Last Admin: 10/05/18 19:56 Dose: 5 mg Documented by: [id number] Code Status & VTE Plan Code Status Full code VTE Prophylaxis Plan VTE Prophylaxis will be ordered: Yes Supervising Physician Co-Signing Physician Notes Attending addendum: I have physically seen this patient, have supervised the medical residents activities, and agree with the H&P unless as otherwise noted. Assessment and Plan: Vertical diplopia of 3 days duration with acute onset- Referred by her local belting cutter. CT of head negative for acute findings. MRI brain negative Normal laboratory work-up. Order arterial hypercoagulable studies: Lupus anticoagulant, cardiolipin antibody, homocystine, beta-2 microglobulin. Continue aspirin 81 mg daily, metoprolol succinate 25 mg daily and atorvastatin 40 mg daily. Check a fasting lipid panel and hemoglobin A1c. Order a complete echocardiogram. Neurochecks per protocol. Consult neurology. Remainder of orders and notations as noted. PG Care Time/CCT Total # of Minutes Spent Total Time Spent with Patient: Total time spent is greater than 50% in coordination of care (as documented) at patient's floor/unit and/or counseling patient: Resident Activity Tracking Resident Involvement: Resident Care Provided Care Provided: Adult Hospital Medicine
[2018-10-06] MEDS ORDERED: ACETAMINOPHEN 325 MG TAB PO PRN (00:29)
[2018-10-06] MEDS ORDERED: METOPROLOL TARTRATE 25 MG TAB PO ONE (00:29)
[2018-10-06] MEDS ORDERED: SODIUM CHLORIDE 0.9% 1000ML 1,000 ML IV ONE (00:29)
[2018-10-06] MEDS ORDERED: METOPROLOL TARTRATE 1 MG/ML VIAL IV PRN (00:29)
[2018-10-06 06:59] LABS: BUN Creatinine Ratio 23.9 (10-20); Calcium 9.6 mg/dl (8.5-10.1); Creatinine Clr Calc Pharmacy 63.4 ml/min; Est GFR (African American) 83.9; Est GFR (Non-African American) 72.4; Potassium 4.4 mmol/L (3.5-5.1)
[2018-10-06] MEDS ORDERED: ATORVASTATIN 20 MG TAB PO SCH (09:00)
--- NOTE | 2018-10-06 10:38 | Neurology Consultation ---
Date of Consultation October 06, 2018 Assessment & Plan (1) Diplopia: This patient is experiencing diplopia at a distance, a bit more so when looking to the left. 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 On the other hand, a pupil sparing medical 3rd nerve palsy without associated ptosis on the right is also possible. Underlying ischemic etiology suspected. Patient is notably hypertensive. She has a history of hyperlipidemia as well. Giant cell arteritis is probably unlikely. This patient does have evidence of diffuse but mild atherosclerotic disease on her CT angiography. I would recomm end aspirin 81 mg/day. She should continue with atorvastatin. It may be reasonable to check an up-to-date lipid panel or consider increasing her dosage of atorvastatin. Her blood pressure does seem to be responding well to treatment and she will probably need to start an antihypertensive going forward. It may also be worthwhile to check a transthoracic echocardiogram while she is here in the hospital. I would also check a sedimentation rate and CRP. History of Present Illness Reason for Consultation: Diplopia Requesting Physician: Ronak Mcfarlane DO Attending Physician: Ronak Mcfarlane DO History of Present Illness The patient is an 82-year-old female with a chief complaint of intermittent diplopia. She indicates that she began experiencing episodes of double vision about 3 days ago. The double vision tends to be worse when looking at objects off in the distance, perhaps a bit more so to the left visual field, and improves when looking at things up close. She reports both perceiving elements of both horizontal and vertical diplopia that also improves with closing either eye. She does admit, however, that at other times she does not have any diplopia when looking at a distance. She is unaware of any associated ptosis or droopiness of the eyelids. She denies experiencing any associated vision loss or ocular pain although she does complain of a mild frontal headache which is been present for about 3 days as well. She does not typically get headaches. Further, the patient denies experiencing any dysarthria or changes in speech or changes in swallowing. She denies any associated weakness or sensory loss of the limbs. She does not recall having episodes of diplopia in the past. She was evaluated by her supervisor wound in [place] for her diplopia yesterday who recommended assessment in the emergency department. Past medical history is notable for hyperlipidemia. Patient's blood pressure has been notably elevated although she denies a past medical history of hypertension. Family history noncontributory. Patient denies a family history of stroke, peripheral neuropathy, or neurological disease. 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 Beliefs That Will Affect Care: None Current Living Situation: Spouse Feels Safe at Home: Yes Safety Concerns: Feels Safe At This Time Smoking Status: Never smoker Hx Alcohol Use: No Hx Substance Use: No Review of Systems Constitutional: no fever and no chills Eyes: as per Subjective / HPI and + diplopia; no eye pain Ear, Nose, Mouth, Throat: no hearing loss Respiratory: no cough and no dyspnea Cardiovascular: no chest pain and no palpitations Gastrointestinal: no abdominal pain and no vomiting Genitourinary: no dysuria Musculoskeletal: no myalgia Integumentary: no rash and no lesions Neurologic: as per Subjective / HPI Psychiatric: no depression and no anxiety Hematologic / Lymphatic: no easy bleeding and no easy bruising Physical Exam Physical Exam: The patient is a well-developed, well-nourished elderly female. She is alert and fully oriented. Recent and remote memory intact. Attention and concentration normal. Patient exhibits a normal spontaneous speech pattern. She is able to name objects and repeat phrases. Patient exhibits an age- appropriate fund of knowledge and normal comprehension of vocabulary. Visual aguilera full to confrontation. Visual acuity normal. Pupils equal round react to light and accommodation. Eye movements normal. There is no obvious ophthalmoplegia. There is no ptosis. There is no nystagmus. However, with testing of ocular gaze, patient does report diplopia when tracking my finger at a distance, and more so to the left. The diplopia seems to improve when looking at my finger up close. Facial sensation intact. There is no facial droop or weakness. Hearing intact. Palate elevates to midline. Shoulder shrug intact. Tongue protrudes to midline. Sensation intact to all modalities in all 4 limbs. Deep tendon reflexes are intact and symmetrical for the arms and legs. Plantar responses downgoing bilaterally. There is no dysdiadochokinesia or dysmetria [id number] or [id number] bilaterally. Ophthalmoscopic examination reveals normal-appearing optic disks and posterior segments. No papilledema or hem orrhages. Carotid pulses normal bilaterally, no bruits to auscultation. Gait and station not tested due to safety concerns. Patient exhibits normal muscle strength and tone for all 4 limbs. No atrophy. No abnormal movements observed. Results & Data Vital Signs (Past 12 Hours) Vital Signs Temp Pulse Pulse Resp BP BP Pulse Ox 10/06/18 07:46 36.5 C 71 16 153/93 H 94 10/06/18 07:19 74 10/06/18 04:00 37.0 C 69 18 149/75 H 95 10/05/18 23:04 84 16 167/86 H 96 10/05/18 22:32 97 H 18 149/100 H 96 Laboratory Results Recently completed labs reviewed. WBC 7.03, hemoglobin 15.3, hematocrit 45.2, platelet count 246, sodium 141, potassium 4.4, BUN 18, creatinine 0.77, glucose 104, calcium 9.6, magnesium 2.2. Lipid panel completed this past February revealed modestly elevated triglycerides and was otherwise within normal limits. Diagnostic Findings A CT of the head completed yesterday was negative for hemorrhage or acute process. Images and report reviewed. An MRI of the brain revealed a mild degree of chronic small vessel change throughout the cerebral hemispheres with some similar changes in the brainstem/midbrain. No evidence of acute or subacute stroke. Images and report reviewed. A CT angiogram of the neck revealed mild atherosclerotic plaque within all major vessels. No hemodynamically significant stenosis observed. There is a mild stenosis of the left vertebral artery at the C2 level. 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 Electrocardiogram revealed sinus rhythm with occasional PVCs, 78 bpm.
[2018-10-06] MEDS ORDERED: METOPROLOL SUCC 25MG EXT REL TAB PO SCH (11:00)
--- NOTE | 2018-10-06 14:04 | Discharge Summary ---
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 - Patient states over the past 3 days she is noticed the new onset of double vision. For example, she states that it looks like there are to electrical outlets on the wall, one above the other, in her ED exam room. She denies any history of same. Her daughter says that while being examined by her eye doctor that there was a small discrepancy in the movement of both of her eyes on downward gaze. Otherwise they were told there were no issues found. - Concurrently, patient says that she has had the new onset of a frontal and occipital headache over the same 3 days. Says that it lasts for seconds to perhaps a minutes, resolves, but occurs multiple times throughout the day. Denies any particular association with her double vision. Denies any history of chronic headaches, known fevers or chills, neck pain, nausea or vomiting, head injuries, restorationism pain, or other local concerns. - On review of systems, patient denies other acute concerns. When noted her blood pressure is quite high, she says she has no known hypertensive history. No known history of stroke or other neurologic issues as well. - Past medical history includes glaucoma, hyperlipidemia, low back pain, question neck pain. - Past surgical history includes hysterectomy, , possibly lumbar fusion, possibly cervical vertebral surgery. - Social history includes never smoking. Denies alcohol use. Lives at home with her . Daughter nearby. Admission Exam Per Admitting Provider GENERAL: Awake, alert, well-appearing, in no acute distress. HENT: Normocephalic, atraumatic. Oropharynx unremarkable. No tenderness over bilateral temples. EYES: PERRL, EOMI bilaterally. Normal conjunctivae. Sclera nonicteric. Patient notes vertical diplopia with both eyes open. She says this immediately resolves upon covering either eye, but then returns with both eyes open again. NECK: Inspection normal. Supple and full ROM. No nuchal rigidity. No tenderness to palpation along midline or bilateral paraspinal muscles. CARDIAC: +S1S2 RRR with occasional early beats, no murmurs. RESPIRATORY: Clear to auscultation. No wheezes or rales. Normal respiratory effort. GI: +BS, soft, non-distended. No tenderness to palpation. No rebound or guarding. EXTREMITIES: No pedal edema or calf tenderness. Moving all extremities naturally and easily. NEURO: No gross neuro deficits with exception of diplopia as above. Principal Diagnosis Diplopia, likely small ischemic stroke causing CN palsy Discharge Exam Constitutional WD/WN, vitals as above Eyes PERRL, conjunctivae normal, anicteric sclerae ENMT external ear and nose normal, oropharynx normal Neck trachea midline, no thyromegaly Respiratory normal respiratory effort, lungs clear to auscultation Cardiovascular RRR, no murmur, no edema Gastrointestinal (Abdomen) normal bowel sounds, soft, nontender, no hepatosplenomegaly Musculoskeletal no cyanosis or clubbing, extremities motor strength 5/5 Skin no rashes, warm and dry Neurologic patellar DTR's 2+ bilat, sensation intact and PERRL, EOMI, accommodation nl, no face palsy, no dysarthria Psychiatric A+Ox3, euthymic affect Lymphatic no cervical or axillary lymphadenopathy Discharge Data Allergies Allergy/AdvReac Type Severity Reaction Status Date / Time No Known Allergies Allergy Unverified 10/05/18 18:17 Consultations 10/05/18 21:12 ED Decision to Admit Stat 10/06/18 09:38 Consult Neurology Routine Ordered Studies 10/05/18 18:14 CT head/brain wo con Stat 10/05/18 19:23 MR brain wo con Stat 10/05/18 21:04 CT angio head w con Stat CT angio neck with con Stat Hospital Course (1) Binocular vision disorder with diplopia: suggests a possible CN palsy on the left likely due to very small ischemic stroke vision will improve with time, patient reports it is already better compared to time of admission follow up with eye doctor already scheduled for two weeks follow up with Dr. Pedroza in one week (2) Symptoms of cerebrovascular accident (CVA): likely a small ischemic stroke, too small to see on MRI brain which was normal CT angiogram head and neck show some plaques but no severe stenosis secondary stroke prevention will include aspirin 81mg daily increase Lipitor to 40mg daily start on Toprol for blood pressure control giant cell arteritis considered, checked ESR which was normal at 11 thus ruling out vasculitis (3) Hypertension: new diagnosis, typically blood pressure stable in the office 200 systolic on admission could have been in response to acute stroke start on Toprol 25mg daily follow up in the office for blood pressure check goal would be < 140/80 (4) Hyperlipidemia: already on Lipitor 20mg daily will increase to 40mg daily due to stroke Total Time Total Time Spent Total Time Spent (In Minutes): 40 minutes Total Time Includes: Examination of the Patient, Discharge Planning, Medication Reconciliation, Communication With Other Providers (Dr. Aranda) and Other (communication with daughter over the phone and in person) Discharge Plan Discharge Items Patient Disposition: Home - Self-Care Reason For Visit: DIPLOPIA,HYPERTENSIVE URGENCY Discharge Diagnosis: Diplopia (double vision) Small ischemic stroke, cranial nerve palsy Hypertension Discharge Goals: Improve disease control and Improve function Activity: Resume your previous activity Lifting: None Bathing: No limitations Sexual Activity: When tolerated Exercise/Sports: None Driving/Machine Use Comment: do not drive until after follow up with eye doctor Non-emergency contact: Primary Care Provider, Neurologist and Chemical Equipment Sales Engineer Call non-emergency contact if: you have any medication questions, your symptoms worsen, your pain is not controlled and you have a fever Follow-up/Referrals: Kimmie Pedroza, [Primary Care Provider] - Diet: Heart Healthy Add Provider Instructions: Medications: - ATORVASTATIN: dose increased to 40mg daily from 20mg daily - TOPROL: 25mg daily, this is to lower blood pressure - ASPIRIN: 81mg daily, prevents further strokes Diplopia, likely small cranial nerve palsy, likely small ischemic stroke no signs of stroke on MRI brain but typically cranial nerve strokes are so small that they do not show up vision will improve slowly, follow up with eye doctor next week do not drive until eye doctor clears you secondary stroke prevention, following medications intended to prevent further strokes - aspirin 81mg daily, take every day - atorvastatin, increase to 40mg daily, proven to stabilize plaques in arteries and prevent further strokes - metoprolol, 25mg daily, lower blood pressure, goal is less than 140/80 FOLLOW UP - Dr. Pedroza in one week, call for follow up - Dr. Aranda, neurology, in clinic in one month, call for appt, [id number] Risk Factors for Stroke: You can reduce your chances of stroke by working with your medical provider to adopt a healthy lifestyle. Some specific ways to lower your chance of stroke are: * If you are a smoker, now is the time to stop smoking cigarettes * If you are diabetic, improve the control of your blood sugars * Avoid excessive amounts of alcohol * Control high blood pressure * Lose weight if you are overweight * Be sure to lead an active lifestyle * Eat a healthy diet low in salt, cholesterol and fat You should know about other risk factors for stroke that you are unable to control. These include: * Age 55 years or older * Male gender * Certain racial groups: , or / * Family History of Stroke, Mini stroke or Heart Attack * Sickle Cell Disease Follow Up: It is important for you to keep your follow up appointments with your medical provider. Who to Call and When: Medical Emergencies: Call 911 immediately if you experience any of the following warning signs and symptoms of Stroke: * Sudden numbness or weakness of the face, arm or leg, especially on one side of the body * Sudden confusion, trouble speaking or understanding * Sudden trouble seeing in one or both eyes * Sudden trouble walking, dizziness, loss of balance or coordination * Sudden severe headache with no cause Do not delay calling 911 if you experience any warning signs or symptoms of a stroke. Delay in seeking medical attention may affect what treatments can be given to you. . Prescriptions: New atorvastatin 40 mg Tablet 40 mg PO DAILY 30 Days Qty: 30 RF: 3 metoprolol succinate 25 mg Tablet Extended Release 24 Hr 25 mg PO QAM 30 Days Qty: 30 RF: 3 aspirin [Aspirin Low Dose] 81 mg tablet,delayed release (DR/EC) 81 mg PO DAILY Qty: 30 RF: 3 Continued latanoprost 0.005 % drops 1 drp OPR HS RF: 0 Discontinued atorvastatin 20 mg tablet 20 mg PO DAILY Qty: 90 RF: 1 Stand-Alone Forms: [facility] Discharge Orders: Discharge Order (Routine); Ordered 10/06/18 Ordered By: Ronak Mcfarlane Admission Data Admit Date/Time: 10/05/18 22:37 Attending Provider: Ronak Mcfarlane Admit Provider: Gerald Hughes Primary Care Provider: Kimmie Pedroza Other Providers: Abdon Mir ; Ashkan Aranda Service: Telemetry Medical Other Interventions: Discharge Summary Assessment (RN) Last Done: 10/06/18 13:18
[2018-10-06] MEDS ORDERED: LATANOPROST 0.005% OP SOLN 2.5 ML BTL OPR SCH (21:00)
[2018-10-07] MEDS ORDERED: ATORVASTATIN 40 MG TAB PO SCH (09:00)
[2018-10-09 06:08] LABS: Anti Cardiolipin Ab IgG <14 GPL (< = 14); Anti Cardiolipin Ab IgM 23 MPL (< = 12); Anti-Cardiolipin Ab IgA <11 APL (< = 11); Beta-2-Microglobulin 2.05 MG/L (<or=2.51); Lupus Anticoagulant Negative (Negative)
== END 2018-10-06 14:05 | disposition home or self-care (01) ==
LOC: ED 17:05 → 2N 17:05 → SUATTDRO 22:37 → 2N 23:04

== ENCOUNTER 2022-02-08 12:07 | Observation (INO) ==
[2022-02-08 12:50] LABS: Basophils % (auto) 1.2 %; Eosinophils # (auto) 0.03 K/uL (0-0.50); Eosinophils % (auto) 0.4 %; Hematocrit (blood only) 46.6 % (34.1-44.9); Hemoglobin 15.3 g/dl (12.0-16.0); Immature Granulocytes # (auto) 0.08 K/uL (0.00-0.02); Immature Granulocytes % (auto) 0.9 %; Lymphocytes # (auto) 0.85 K/uL (1.2-3.4); Lymphocytes % (auto) 9.9 %; Mean Corpuscular Hemoglobin 28.5 pg (25.0-34.0); Mean Corpuscular Hgb Conc 32.8 g/dL (32.0-36.0); Mean Corpuscular Volume 86.8 fL (80.0-100.0); Mean Platelet Volume 10.3 fL (9.4-12.3); Monocytes # (auto) 0.72 K/uL (0.24-0.82); Monocytes % (auto) 8.4 %; Neutrophils # (auto) 6.77 K/uL (1.4-6.5); Neutrophils % (auto) 79.2 %; Platelet Count 193 K/uL (130-400); RDW Coefficient of Variation 14.5 % (11.5-14.5); RDW Standard Deviation 45.8 fL (36.4-46.3); Red Blood Count 5.37 M/uL (3.93-5.22); White Blood Count 8.55 K/ul (4.8-10.8)
--- NOTE | 2022-02-08 13:06 | Emergency Department Note ---
Impression & Plan Atrial fibrillation with rapid ventricular response, Pulmonary edema, Acute dyspnea ED Provider Note NAME: RENEE RODRIGUEZ AGE: 86 SEX: F : 1935 ARRIVES VIA: Walk-In INFORMANT: Patient, ED PROVIDER(S): Jony Hightower MD Chief Complaint: Shortness of breath, outpatient referral HPI: Patient presents due to concern for shortness of breath ongoing 3 to 4 days. Patient has exertional dyspnea but does not complain of orthopnea. No prior history of heart or lung disease but does take baby aspirin. The patient was seen by her primary care doctor today was noted to have an elevated heart rate and thought to be in A. fib. Patient denies any prior history of arrhythmia. Patient's family were bedside states that she does have a history of dementia. Patient denies any chest pains. The patient does take metoprolol 25 mg extended release. Patient does not take any anticoagulant medications. Patient denies any nausea vomiting or diarrhea. Patient denies any cough or fever. No supplements or stimulants and denies any alcohol or tobacco use. ROS: See HPI for pertinent positives and negatives. A total of 10 systems were reviewed and otherwise negative. Past medical history: See below Surgical history: See below Social history: See below Physical Exam: GENERAL: NAD, wearing a mask, non-toxic. EYE EXAM: Normal conjunctiva. PERRL, no anisocoria and EOM's grossly intact w/o pain. NECK: Supple, no nuchal rigidity, no adenopathy, non-tender. No signs of meningismus. FROM of the neck with good chin to chest and neck extension. No stridor. LUNGS: Bibasilar crackles. Normal chest wall mechanics. HEART: Tachycardic and irregularly irregular, no MRG. ABDOMEN: Abdomen soft, non-tender, normo-active bowel sounds, no masses, no rebound or guarding. BACK: No CVA TTP. SKIN: No rashes and no bruising. UPPER EXTREMITIES: Upper extremities are grossly normal. LOWER EXTREMITIES: Grossly normal, trace pretibial edema NEURO EXAM: A&O x3, cranial nerves II-XII grossly intact, normal speech, moves all 4 extremities. Differential diagnoses: Reactive airway disease, pneumonia, pneumothorax, COPD, CHF, infections, cardiac ischemia, pulmonary embolism, musculoskeletal, gastrointestinal, as well as other pathologies. Course: Patient was seen and evaluated the bedside. Full history physical exam was performed. EKG interpreted by me A. fib with RVR, rate 149, normal QRS, normal axis depressions in the lateral leads. Imaging Studies: See Below Cardiac monitoring: An order was placed for continuous cardiac monitoring. The monitor shows a rate of 112 with tachycardic and irregularly irregular rhythm. MDM: Patient was seen due to concern for tachycardia new onset A. fib. Blood work was obtained along with an EKG troponin chest x-ray. Patient's chest film does show concern for pulmonary edema. Patient was ordered Lopressor as well as Lasix. Patient has a normal white count hemoglobin and platelet count. Troponin is slightly elevated 19.8. Heparin ordered. I did speak with the on-call hospitalist Jessie Aguilar PA-C and Dr. Mejia. The patient was admitted to the medicine service. Critical Care: I have personally spent 38 minutes of critical care time in direct management of this patient. This includes bedside care, interpretation of diagnostic studies, and testing, discussion with consultants, patient, and family members, and other require inpatient management activities. This 38 minutes is in excess of all separately billable procedures. 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 Mother Congestive heart failure Brother Diabetes Denies family history of Ovarian cancer Prostate cancer Myocardial infarction Breast cancer Lung cancer Colorectal cancer Social History Smoking Status: Never smoker Second Hand Exposure: No; Hx Alcohol Use: No Hx Substance Use: No Preferred Language: Australian Communication Ability: Effective Visual Impairment: Limited Hearing Ability: Normal Re Dye Hand Required: No Beliefs That Will Affect Care: None marital status: Current Living Situation: Spouse current occupational status: retired How many Children do You have: 3 Other Information That Helps Us Care for You: No Feels Safe at Home: Yes Safety Concerns: Feels Safe At This Time Childhood Exposure to Second-Hand Smoke: Yes Diet Comment: regular caffeine: No during the past year weight has: remained stable Dental Care, Regularly: No Physical Activity Frequency: Daily Seatbelt Use: always Sunscreen Use: No Assistive Devices: None Allergies Allergies Allergy/AdvReac Type Severity Reaction Status Date / Time No Known Allergies Allergy Verified 02/08/22 15:05 Home Meds Home Medications Medication Instructions Recorded Confirmed latanoprost 0.005 % eye drops 1 drp OPR HS 10/05/18 02/08/22 dorzolamide 2 % eye drops 1 drp ophthalmic (eye) DAILY 02/08/22 02/08/22 Previous Rx's Medication Instructions Recorded aspirin 81 mg tablet,delayed 81 mg PO DAILY #30 tabs 10/06/18 release (Alexys Low Dose Aspirin) atorvastatin 40 mg tablet 40 mg PO DAILY #90 tabs 09/04/21 metoprolol succinate 25 mg 25 mg PO QAM #90 tabs 09/04/21 tablet,extended release 24 hr escitalopram oxalate 10 mg tablet 10 mg PO DAILY #90 tabs 12/04/21 Results & Data (ED) Vital Signs Vital Signs - 24 hr 02/08/22 12:14 02/08/22 12:19 02/08/22 12:41 Temperature 36.8 C Temperature Source Temporal Artery Scan Pulse Rate 137 H Pulse Rate [Apical] Pulse Rate from SpO2 Sensor Respiratory Rate 18 Respiratory Effort / Characteristics Non-Labored Spontaneous Short of Breath SOB on Exertion Respiratory Depth Normal Normal Blood Pressure 164/104 H Blood Pressure [Left Arm] Blood Pressure Mean 124 Blood Pressure Mean [Left Arm] Blood Pressure Position Lying Pulse Oximetry 91 Oxygen Delivery Method Room Air Room Air Room Air Oxygen Flow Rate Sepsis Recent Fever Within 48 Hours No Sepsis New/Unexplained Change in Mental Status No Sepsis Action Taken by Nursing No Action Required 02/08/22 12:40 02/08/22 12:43 02/08/22 13:00 Temperature Temperature Source Pulse Rate 116 H Pulse Rate [Apical] Pulse Rate from SpO2 Sensor 112 H Respiratory Rate 22 Respiratory Effort / Characteristics Respiratory Depth Blood Pressure 154/90 H Blood Pressure [Left Arm] Blood Pressure Mean 111 Blood Pressure Mean [Left Arm] Blood Pressure Position Pulse Oximetry 88 L 94 94 Oxygen Delivery Method Room Air Nasal Cannula Oxygen Flow Rate 2 Sepsis Recent Fever Within 48 Hours Sepsis New/Unexplained Change in Mental Status Sepsis Action Taken by Nursing 02/08/22 13:44 02/08/22 13:46 02/08/22 13:45 Temperature Temperature Source Pulse Rate 129 H 120 H Pulse Rate [Apical] 128 H Pulse Rate from SpO2 Sensor 114 H Respiratory Rate 18 28 H Respiratory Effort / Characteristics Respiratory Depth Blood Pressure 187/132 H 173/109 H Blood Pressure [Left Arm] 173/109 H Blood Pressure Mean 130 Blood Pressure Mean [Left Arm] 130 Blood Pressure Position Pulse Oximetry 94 95 Oxygen Delivery Method Nasal Cannula Oxygen Flow Rate 2 Sepsis Recent Fever Within 48 Hours Sepsis New/Unexplained Change in Mental Status Sepsis Action Taken by Nursing 02/08/22 14:00 02/08/22 14:05 02/08/22 14:01 Temperature Temperature Source Pulse Rate 143 H 107 H Pulse Rate [Apical] Pulse Rate from SpO2 Sensor 115 H Respiratory Rate 25 H Respiratory Effort / Characteristics Respiratory Depth Blood Pressure 159/92 H 159/92 H 159/92 H Blood Pressure [Left Arm] Blood Pressure Mean 114 114 Blood Pressure Mean [Left Arm] Blood Pressure Position Pulse Oximetry 94 Oxygen Delivery Method Nasal Cannula Oxygen Flow Rate 2 Sepsis Recent Fever Within 48 Hours Sepsis New/Unexplained Change in Mental Status Sepsis Action Taken by Nursing 02/08/22 14:01 02/08/22 14:15 02/08/22 14:15 Temperature Temperature Source Pulse Rate 131 H 105 H Pulse Rate [Apical] Pulse Rate from SpO2 Sensor 97 H 89 Respiratory Rate 28 H 26 H Respiratory Effort / Characteristics Respiratory Depth Blood Pressure 145/113 H Blood Pressure [Left Arm] Blood Pressure Mean 123 Blood Pressure Mean [Left Arm] Blood Pressure Position Pulse Oximetry 95 96 Oxygen Delivery Method Oxygen Flow Rate Sepsis Recent Fever Within 48 Hours Sepsis New/Unexplained Change in Mental Status Sepsis Action Taken by Skilled Nursing Medications Current Medication List: was personally reviewed by me Laboratory Data Attestation: I reviewed the patient's lab results. Result diagrams: 02/08/22 12:20 02/08/22 12:20 Lab Results 02/08/22 02/08/22 02/08/22 Range/Units 12:20 12:20 12:20 WBC 8.55 (4.8-10.8) K/ul RBC 5.37 H (3.93-5.22) M/uL Hgb 15.3 (12.0-16.0) g/dl Hct 46.6 H (34.1-44.9) % MCV 86.8 (80.0-100.0) fL MCH 28.5 (25.0-34.0) pg MCHC 32.8 (32.0-36.0) g/dL RDW Std Deviation 45.8 (36.4-46.3) fL RDW Coeff of Guerrero 14.5 (11.5-14.5) % Plt Count 193 (130-400) K/uL MPV 10.3 (9.4-12.3) fL Immature Gran % (Auto) 0.9 % Neut % (Auto) 79.2 % Lymph % (Auto) 9.9 % Sumner % (Auto) 8.4 % Eos % (Auto) 0.4 % Baso % (Auto) 1.2 % Neut # (Auto) 6.77 H (1.4-6.5) K/uL Lymph # (Auto) 0.85 L (1.2-3.4) K/uL Sumner # (Auto) 0.72 (0.24-0.82) K/uL Eos # (Auto) 0.03 (0-0.50) K/uL Baso # (Auto) 0.10 (0-0.2) K/uL Immature Gran # (Auto) 0.08 H (0.00-0.02) K/uL PT 11.4 (9.0-12.0) Seconds INR 1.1 (0.9-1.1) APTT 25.9 (21.0-31.0) Seconds PTT Ratio 0.9 Sodium 143 (136-145) mmol/L Potassium 3.9 (3.5-5.1) mmol/L Chloride 112 H (98-107) mmol/L Carbon Dioxide 23 (21-32) mmol/L Anion Gap 8 (3-11) BUN 19 (6-23) mg/dl Creatinine 0.78 (0.6-1.2) mg/dl Est Cr Clr Drug Dosing 57.2 ml/min Est GFR ( Amer) 80.3 ml/min Est GFR (Non-Af Amer) 69.3 ml/min BUN/Creatinine Ratio 24.4 H (10-20) Glucose 148 H (70-99(Fasting)) mg/dl Calcium 10.3 H (8.5-10.1) mg/dl Phosphorus (2.5-4.9) mg/dl Magnesium 1.9 (1.7-2.4) mg/dl Total Bilirubin 2.1 H (0.2-1.0) mg/dl AST 20 (13-39) U/L ALT 15 (7-52) U/L Alkaline Phosphatase 120 H (34-104) U/L Troponin I High Sens 19.8 H (0-14) pg/ml B-Natriuretic Peptide (0-100) pg/ml Total Protein 7.1 (6.0-8.3) gm/dl Albumin 3.9 (3.4-5.0) gm/dl Globulin 3.2 (2.5-4.0) gm/dl Albumin/Globulin Ratio 1.2 (0.9-2) TSH (0.300-4.500) uIu/ml SARS-CoV-2, RNA, NAAT (NEGATIVE) 02/08/22 02/08/22 02/08/22 Range/Units 12:20 12:20 13:14 WBC (4.8-10.8) K/ul RBC (3.93-5.22) M/uL Hgb (12.0-16.0) g/dl Hct (34.1-44.9) % MCV (80.0-100.0) fL MCH (25.0-34.0) pg MCHC (32.0-36.0) g/dL RDW Std Deviation (36.4-46.3) fL RDW Coeff of Guerrero (11.5-14.5) % Plt Count (130-400) K/uL MPV (9.4-12.3) fL Immature Gran % (Auto) % Neut % (Auto) % Lymph % (Auto) % Sumner % (Auto) % Eos % (Auto) % Baso % (Auto) % Neut # (Auto) (1.4-6.5) K/uL Lymph # (Auto) (1.2-3.4) K/uL Sumner # (Auto) (0.24-0.82) K/uL Eos # (Auto) (0-0.50) K/uL Baso # (Auto) (0-0.2) K/uL Immature Gran # (Auto) (0.00-0.02) K/uL PT (9.0-12.0) Seconds INR (0.9-1.1) APTT (21.0-31.0) Seconds PTT Ratio Sodium (136-145) mmol/L Potassium (3.5-5.1) mmol/L Chloride (98-107) mmol/L Carbon Dioxide (21-32) mmol/L Anion Gap (3-11) BUN (6-23) mg/dl Creatinine (0.6-1.2) mg/dl Est Cr Clr Drug Dosing ml/min Est GFR ( Amer) ml/min Est GFR (Non-Af Amer) ml/min BUN/Creatinine Ratio (10-20) Glucose (70-99(Fasting)) mg/dl Calcium (8.5-10.1) mg/dl Phosphorus 2.2 L (2.5-4.9) mg/dl Magnesium (1.7-2.4) mg/dl Total Bilirubin (0.2-1.0) mg/dl AST (13-39) U/L ALT (7-52) U/L Alkaline Phosphatase (34-104) U/L Troponin I High Sens (0-14) pg/ml B-Natriuretic Peptide 207 H (0-100) pg/ml Total Protein (6.0-8.3) gm/dl Albumin (3.4-5.0) gm/dl Globulin (2.5-4.0) gm/dl Albumin/Globulin Ratio (0.9-2) TSH 1.974 (0.300-4.500) uIu/ml SARS-CoV-2, RNA, NAAT (NEGATIVE) 02/08/22 Range/Units 14:05 WBC (4.8-10.8) K/ul RBC (3.93-5.22) M/uL Hgb (12.0-16.0) g/dl Hct (34.1-44.9) % MCV (80.0-100.0) fL MCH (25.0-34.0) pg MCHC (32.0-36.0) g/dL RDW Std Deviation (36.4-46.3) fL RDW Coeff of Guerrero (11.5-14.5) % Plt Count (130-400) K/uL MPV (9.4-12.3) fL Immature Gran % (Auto) % Neut % (Auto) % Lymph % (Auto) % Sumner % (Auto) % Eos % (Auto) % Baso % (Auto) % Neut # (Auto) (1.4-6.5) K/uL Lymph # (Auto) (1.2-3.4) K/uL Sumner # (Auto) (0.24-0.82) K/uL Eos # (Auto) (0-0.50) K/uL Baso # (Auto) (0-0.2) K/uL Immature Gran # (Auto) (0.00-0.02) K/uL PT (9.0-12.0) Seconds INR (0.9-1.1) APTT (21.0-31.0) Seconds PTT Ratio Sodium (136-145) mmol/L Potassium (3.5-5.1) mmol/L Chloride (98-107) mmol/L Carbon Dioxide (21-32) mmol/L Anion Gap (3-11) BUN (6-23) mg/dl Creatinine (0.6-1.2) mg/dl Est Cr Clr Drug Dosing ml/min Est GFR ( Amer) ml/min Est GFR (Non-Af Amer) ml/min BUN/Creatinine Ratio (10-20) Glucose (70-99(Fasting)) mg/dl Calcium (8.5-10.1) mg/dl Phosphorus (2.5-4.9) mg/dl Magnesium (1.7-2.4) mg/dl Total Bilirubin (0.2-1.0) mg/dl AST (13-39) U/L ALT (7-52) U/L Alkaline Phosphatase (34-104) U/L Troponin I High Sens (0-14) pg/ml B-Natriuretic Peptide (0-100) pg/ml Total Protein (6.0-8.3) gm/dl Albumin (3.4-5.0) gm/dl Globulin (2.5-4.0) gm/dl Albumin/Globulin Ratio (0.9-2) TSH (0.300-4.500) uIu/ml SARS-CoV-2, RNA, NAAT NEGATIVE (NEGATIVE) Administered Medications Heparin Sodium/Dextrose (Heparin Sodium/Dextrose) 25,000 units in 500 mls @ 25 mls/hr IV .Q20H GIORGI; Protocol Stop: 03/10/22 14:44 Last Titration: 02/08/22 16:24 Dose: 1,250 units/hr, 25 mls/hr Documented By: SANTIAGO Co-signed By: KYLER Admin: 02/08/22 15:02 Dose: 1,250 units/hr, 25 mls/hr Documented By: RENETTA Co-signed By: MES Discontinued Medications Furosemide (Furosemide 40 Mg/4 Ml Vial) 40 mg IV ONE ONE Stop: 02/08/22 13:34 Last Admin: 02/08/22 13:44 Dose: 40 mg Documented By: LEYDA Metoprolol Tartrate (Metoprolol Tartrate 1 Mg/Ml Vial) 5 mg IV Q5M PRN PRN Reason: Tachycardia Stop: 03/10/22 13:31 Last Admin: 02/08/22 14:05 Dose: 5 mg Documented By: Admin: 02/08/22 13:44 Dose: 5 mg Documented By: LEYDA Imaging Data Radiologist's Impression: Chest X-Ray 02/08/22 12:42 XR chest 1V portable CLINICAL HISTORY: sob TECHNIQUE: Single frontal radiograph of the chest was obtained. Comparison: None available at the time of this dictation. FINDINGS: Exam is limited by underpenetration. Cardiomegaly is noted. The aortic arch is calcified. Prominence and cephalization of the vasculature is seen. No evidence of pleural effusion or pneumothorax. IMPRESSION: Cardiomegaly and mild pulmonary edema. ACT 112: Negative or not required by law. Electronically signed by: Ronak Lea M.D. 02/08/2022 1:10 PM Discharge Plan Visit Data Chief Complaint: Arrhythmia/Palpitations Stated Complaint: A-FIB - SENT BY ED Provider: Jony Hightower Discharge Problem: Atrial fibrillation with rapid ventricular response, Pulmonary edema, Acute dyspnea Patient Disposition: Admitted As Inpatient Discharge Instructions Interventions: ED Discharge Assessment Last Done: 02/08/22 16:35
[2022-02-08 13:09] LABS: INR 1.1 (0.9-1.1); Partial Thromboplastin Ratio 0.9; Partial Thromboplastin Time 25.9 Seconds (21.0-31.0); Prothrombin Time 11.4 Seconds (9.0-12.0)
--- NOTE | 2022-02-08 13:12 | XRay Report ---
XR chest 1V portable CLINICAL HISTORY: sob TECHNIQUE: Single frontal radiograph of the chest was obtained. Comparison: None available at the time of this dictation. FINDINGS: Exam is limited by underpenetration. Cardiomegaly is noted. The aortic arch is calcified. Prominence and cephalization of the vasculature is seen. No evidence of pleural effusion or pneumothorax. IMPRESSION: Cardiomegaly and mild pulmonary edema. ACT 112: Negative or not required by law. Electronically signed by: Ronak Lea M.D. 02/08/2022 1:10 PM
[2022-02-08] MEDS ORDERED: FUROSEMIDE 40 MG/4 ML VIAL IV ONE (13:33)
[2022-02-08 13:37] LABS: Troponin I High Sensitivity 19.8 pg/ml (0-14)
[2022-02-08] MEDS: METOPROLOL TARTRATE 1 MG/ML VIAL IV PRN ×2 (13:44→14:05)
[2022-02-08 14:02] LABS: Albumin Globulin Ratio 1.2 (0.9-2); Albumin Level 3.9 gm/dl (3.4-5.0); BUN Creatinine Ratio 24.4 (10-20); Bilirubin,Total 2.1 mg/dl (0.2-1.0); Calcium 10.3 mg/dl (8.5-10.1); Creatinine Clr Calc Pharmacy 57.2 ml/min; Est GFR (African American) 80.3 ml/min; Est GFR (Non-African American) 69.3 ml/min; Globulin 3.2 gm/dl (2.5-4.0); Magnesium 1.9 mg/dl (1.7-2.4); Potassium 3.9 mmol/L (3.5-5.1); Total Protein 7.1 gm/dl (6.0-8.3)
[2022-02-08] MEDS ORDERED: Heparin IV Adult Wt-Based Standard *NO* Bolus Protocol IV ONE (14:16)
--- NOTE | 2022-02-08 14:34 | History & Physical Report ---
Date of Service February 08, 2022 Assessment & Plan (1) Atrial fibrillation with RVR: Plan: New A. fib with RVR EKG: Jesus. elliot with RVR, lateral ST segment depressions with rate of 149 No leukocytosis. Hemoglobin 15.3 Sodium 143, potassium 3.9 Normal baseline creatinine of less than 1, admitting creatinine of 0.78 BUN/creatinine ratio mildly elevated at 24 BSG 148 T bili elevated 2.1, trended. No transaminitis. Alk phos mild chronic elevation of 120 High-sensitivity troponin 19.8 on admission, suspect demand from Jesus. elliot with RVR TSH within normal limits CXR: Cardiomegaly and mild pulmonary edema Received Lasix 40 mg IV, was heparinized in ER, and received metoprolol 5 mg x 2 with rate improvement to approximately 107. - BNP 207 Echo pending Troponin trended Home metoprolol from 25 mg succinate daily to tartrate 25 mg twice daily Echo 10/06/2018: Normal LV size and without wall motion abnormalities. Type I diastolic dysfunction. EF hyperdynamic to 70%. No history of reduced EF/CHF, BNP elevated. Suspect Rate related. If metoprolol monotherapy insufficient to control rate, may add adjunct diltiazem. If patient continues inadequately rate controlled --> dig versus amio (2) Glaucoma: Plan: - contue home eye drops (3) Hyperlipidemia: Plan: HLD - Atorvastatin 40mg dialy (4) Hypertension: Plan: HTN - MTP as noted - Aspirin 81mg daily (5) Prediabetes: Plan: Pre-DM - BSG 148 on admit, nonfasting - A1c pending - If persistently elevated/fasting >140 --> SSI (6) Ischemic stroke: Plan: Past CVA - Denies deficits or hx of this - On ASA daily and atorvastain (7) Depression: Plan: Anxiety/Depression - Lexapro 10mg (8) Mild cognitive impairment: Plan: - No acute intervention Plan DVT prophylaxis: Heparin eyes Diet: Heart healthy Disposition: PCU while receiving IV MTP CODE STATUS: DNR/DNI, discussed with family and they have completed a advanced directive History of Present Illness Primary Care Provider: DO Raul Santiago is an 86-year-old male with a past medical history of ischemic stroke, prediabetes, mild cognitive impairment, anemia, hyperlipidemia, hypertension who presented to the ER with shortness of breath of 3-4 days. Shortness of breath is worsened with exertion. No prior pulmonary/cardiac history. Was referred to ER from PCP for concern of irregular elevated heart rate. Patient is not anticoagulated, does not have a prior history of atrial fibrillation although is on metoprolol. In the ER patient is found to have mild pulmonary edema, mild troponin elevation, and EKG is with new A. fib with RVR. "Aristeo" is seen with her daughter at bedside. Yesterday developed shortness of breath more than normal. No chest pain. PCP referred her here for afib. INcreased shortness of breath with exertion the last few weeks. Much worse in last 24 hours. No orthopnea. No chest pressure or chest pressure NO fevers, chills, or sweats No cough NO nausea, vomiting, constipatoin, some loose bowels at baseline with no change. -BRBPR/melena Denies pain No past hx of afib no hx of heart attack, ND, or heart problems No strokes no DM Mild HTN on metoprolol Takes eydrops for glaucoma on 2x eye drop medications No double vision, was reported at one poitn but resolved on its own 'quite a while ago. No kidney problems NO bleeding problems Rare falls at home Medical History: Reviewed Medications: Reviewed Surgical History: Reviewed Allergies: Reviewed Social History: Remote tobacco use, no alcohol Code Status: DNR/DNI, advanced directive completed by patient previously, confirmed with patient and family at bedside Allergies Allergy/AdvReac Type Severity Reaction Status Date / Time No Known Allergies Allergy Verified 02/08/22 15:05 Home Medications Medication Instructions Recorded Confirmed Type latanoprost 0.005 % eye drops 1 drp OPR HS 10/05/18 02/08/22 History aspirin 81 mg tablet,delayed 81 mg PO DAILY #30 tabs 10/06/18 02/08/22 Rx release (Alexys Low Dose Aspirin) atorvastatin 40 mg tablet 40 mg PO DAILY #90 tabs 09/04/21 02/08/22 Rx metoprolol succinate 25 mg 25 mg PO QAM #90 tabs 09/04/21 02/08/22 Rx tablet,extended release 24 hr escitalopram oxalate 10 mg tablet 10 mg PO DAILY #90 tabs 12/04/21 02/08/22 Rx dorzolamide 2 % eye drops drp ophthalmic (eye) ONCE 02/08/22 02/08/22 History Past Med/Surg History Medical History Anemia Anterolisthesis 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 Mother Congestive heart failure Brother Diabetes Denies family history of Ovarian cancer Prostate cancer Myocardial infarction Breast cancer Lung cancer Colorectal cancer Social History Smoking Status: Never smoker Second Hand Exposure: No; Hx Alcohol Use: No Hx Substance Use: No Preferred Language: Hungarian Communication Ability: Effective Visual Impairment: Limited Hearing Ability: Normal [employer] Required: No Beliefs That Will Affect Care: None marital status: Current Living Situation: Spouse current occupational status: retired How many Children do You have: 3 Feels Safe at Home: Yes Childhood Exposure to Second-Hand Smoke: Yes Diet Comment: regular caffeine: No during the past year weight has: remained stable Dental Care, Regularly: No Physical Activity Frequency: Daily Seatbelt Use: always Sunscreen Use: No Assistive Devices: None Review of Systems Review of Systems: All systems reviewed & are unremarkable except as noted in HPI & below Physical Exam Physical Exam: General:Oriented to name and building, not city or year. NAD. Cooperative. HEENT: Atraumatic, normocephalic. PERLAA and Eom in tact. Hearing grossly intact. Pulm: bibasilar crackles without rales -wheezes, -rhonchi. Symmetrical chest rise. No increased work of breathing. No respiratory distress. Cardiac: tachy, irir pulses intact and symmetrical. Abdominal: Nontender, nondistended, soft. BS present. Ext: warm, dry, moves upper and lower equally. Manual Equipment Mechanic strength 5/5 bilat Results & Data Results & Data ([facility]) Vital Signs (Past 12 Hours) Vital Signs Temp Pulse Pulse Resp BP BP Pulse Ox 02/08/22 14:05 107 H 159/92 H 02/08/22 14:00 143 H 25 H 159/92 H 94 02/08/22 13:45 120 H 28 H 173/109 H 95 02/08/22 13:46 128 H 18 173/109 H 94 02/08/22 13:44 129 H 187/132 H 02/08/22 13:00 116 H 22 154/90 H 94 02/08/22 12:43 94 02/08/22 12:40 88 L 02/08/22 12:41 02/08/22 12:19 02/08/22 12:14 36.8 C 137 H 18 164/104 H 91 O2 Del Method O2 Flow Rate 02/08/22 14:05 02/08/22 14:00 Nasal Cannula 2 02/08/22 13:45 02/08/22 13:46 Nasal Cannula 2 02/08/22 13:44 02/08/22 13:00 02/08/22 12:43 Nasal Cannula 2 02/08/22 12:40 Room Air 02/08/22 12:41 Room Air 02/08/22 12:19 Room Air 02/08/22 12:14 Room Air PG Care Time/CCT Total # of Minutes Spent Total Time Spent with Patient: Total time spent is greater than 50% in coordination of care (as documented) at patient's floor/unit and/or counseling patient: Coding Level of Care Code INT OBSERVATION CARE 70M LVL 3 Diagnoses Atrial fibrillation with RVR I48.91 Glaucoma H40.9 Hyperlipidemia E78.5 Hypertension I10 Hypertension type: unspecified Prediabetes R73.03 Ischemic stroke I63.9 Depression F32.9 Mild cognitive impairment G31.84 (1) Hypertension Hypertension type: unspecified Qualified Code(s): I10 - Essential (primary) hypertension
[2022-02-08] MEDS: HEPARIN SODIUM/DEXTROSE 25,000 UNITS/500 ML BAG IV SCH (15:02)
--- NOTE | 2022-02-08 15:38 | Electrocardiogram Report ---
Test Reason : Blood Pressure : / mmHG Vent. Rate : 149 BPM Atrial Rate : 133 BPM P-R Int : 000 ms QRS Dur : 078 ms QT Int : 286 ms P-R-T Axes : 000 010 193 degrees QTc Int : 450 ms Atrial fibrillation with rapid ventricular response Abnormal ECG When compared with ECG of 05-OCT-2018 18:18, Atrial fibrillation now present ST now depressed in Lateral leads Inverted T waves have replaced nonspecific T wave abnormality in Inferior leads Confirmed by Jaspal Delong ([id number]) on 02/08/2022 3:37:51 PM Referred By: Kimmie Pedroza Confirmed By:Jaspal Delong
[2022-02-08] MEDS ORDERED: ACETAMINOPHEN 325 MG TAB PO PRN (16:43)
[2022-02-08] MEDS ORDERED: NITROGLYCERIN SL 0.4 MG/TAB TAB SL PRN (16:43)
[2022-02-08] MEDS ORDERED: METOPROLOL TARTRATE 1 MG/ML VIAL IV PRN (16:43)
[2022-02-08] MEDS ORDERED: POLYETHYLENE (MIRALAX) 17 GM PACK PO PRN (16:43)
[2022-02-08 19:02] LABS: Estimated Average Glucose 143 mg/dl; Hemoglobin A1C 6.6 % (4.5-5.6)
[2022-02-08] MEDS ORDERED: METOPROLOL TARTRATE 1 MG/ML VIAL IV STA (19:26)
[2022-02-08] MEDS: METOPROLOL TARTRATE 25 MG TAB PO SCH (20:58)
[2022-02-08 23:03] LABS: Partial Thromboplastin Ratio 2.3
[2022-02-08 23:04] LABS: Partial Thromboplastin Time 64.6 Seconds (21.0-31.0)
[2022-02-09 05:34] LABS: Basophils # (auto) 0.12 K/uL (0-0.2); Basophils % (auto) 1.3 %; Eosinophils # (auto) 0.07 K/uL (0-0.50); Eosinophils % (auto) 0.8 %; Hematocrit (blood only) 41.8 % (34.1-44.9); Hemoglobin 13.8 g/dl (12.0-16.0); Immature Granulocytes # (auto) 0.08 K/uL (0.00-0.02); Immature Granulocytes % (auto) 0.9 %; Lymphocytes # (auto) 0.95 K/uL (1.2-3.4); Lymphocytes % (auto) 10.2 %; Mean Corpuscular Hemoglobin 28.3 pg (25.0-34.0); Mean Corpuscular Volume 85.8 fL (80.0-100.0); Mean Platelet Volume 10.2 fL (9.4-12.3); Monocytes # (auto) 0.83 K/uL (0.24-0.82); Neutrophils # (auto) 7.22 K/uL (1.4-6.5); Neutrophils % (auto) 77.8 %; Platelet Count 167 K/uL (130-400); RDW Coefficient of Variation 14.3 % (11.5-14.5); RDW Standard Deviation 44.9 fL (36.4-46.3); Red Blood Count 4.87 M/uL (3.93-5.22); White Blood Count 9.27 K/ul (4.8-10.8)
[2022-02-09 05:59] LABS: Troponin I High Sensitivity 17.4 pg/ml (0-14)
[2022-02-09 06:07] LABS: Partial Thromboplastin Ratio 2.7
[2022-02-09 06:08] LABS: Partial Thromboplastin Time 73.7 Seconds (21.0-31.0)
[2022-02-09 06:16] LABS: BUN Creatinine Ratio 19.8 (10-20); Calcium 9.7 mg/dl (8.5-10.1); Creatinine Clr Calc Pharmacy 55.1 ml/min; Est GFR (African American) 76.8 ml/min; Est GFR (Non-African American) 66.2 ml/min
[2022-02-09] MEDS: METOPROLOL TARTRATE 25 MG TAB PO SCH (08:15)
[2022-02-09] MEDS: ATORVASTATIN 40 MG TAB PO SCH (08:16)
[2022-02-09] MEDS: ASPIRIN 81 MG ECTAB PO SCH (08:16)
[2022-02-09] MEDS: ESCITALOPRAM OXALATE 10 MG TAB PO SCH (08:16)
[2022-02-09] MEDS: HEPARIN SODIUM/DEXTROSE 25,000 UNITS/500 ML BAG IV SCH (13:18)
--- NOTE | 2022-02-09 13:32 | Hospitalist Progress Note ---
Date of Service February 09, 2022 Assessment & Plan (1) Atrial fibrillation with RVR: Plan: EKG: A. fib with RVR, lateral ST segment depressions with rate of 149. TSH within normal limits. Troponins normal. Chads-Vasc of 7 (age, female, HTN, prior CVA, DM), giving her a 11% annual stroke risk. Received Lasix 40 mg IV, was heparinized in ER, and received metoprolol 5 mg x 2 with rate improvement to approximately 107. - Echo on 02/08: Normal EF (no estimate given), LVH, mild/mod AV sclerosis, biatrial enlargement. HR 90 - 110 generally today. Will switch to Toprol XL 75 mg tomorrow AM. - Will discuss with family the idea of anticoagulation. Patient presently not able to have this conversation. (2) Hyperlipidemia: Plan: - Atorvastatin 40mg daily (3) Hypertension: Plan: BP today is 130/85. - As above with metoprolol (4) Prediabetes: Plan: BSG 148 on admit, non-fasting. A1c was 6.6%. - Sliding scale insulin (5) Ischemic stroke: Plan: Past CVA. Denies deficits or hx of this. - On ASA daily and atorvastatin (6) Depression: Plan: - Continue Lexapro 10mg (7) Glaucoma: Plan: - Continue home eye drops (8) Mild cognitive impairment: Plan: - No acute intervention Plan DVT prophylaxis: Will add Lovenox if family not interested in anticoagulation CODE STATUS: DNR/DNI, discussed with family and they have completed a advanced directive Admission and Anticipated Discharge Date Admission Date: February 08, 2022 Subjective Very confused this afternoon. Per RN, she was alert and oriented to self and place this morning, but now not to place and somewhat agitated. Review of Systems Review of Systems: Unobtainable due to cognitive status Physical Exam Constitutional: WD/WN, vitals as above Eyes: EOM intact bilaterally; no conjunctival abnormality ENMT: external ear and nose normal, oropharynx normal Neck: trachea midline, no thyromegaly normal visual inspection Respiratory: normal respiratory effort, lungs clear to auscultation no respiratory distress Cardiovascular: Rate/Rhythm: + tachycardic and + irregularly irregular Gastrointestinal (Abdomen): Inspection/Auscultation: abdomen normal to inspection; abdomen not distended Musculoskeletal: no cyanosis or clubbing, extremities motor strength 5/5 Skin: no rashes, warm and dry Neurologic: moves all extremities and awake Psychiatric: Orientation: alert and oriented to person; + not oriented to place and + uncooperative Results & Data Results & Data ([facility]) Vital Signs (Past 12 Hours) Vital Signs Temp Pulse Pulse Resp BP BP Pulse Ox 02/09/22 12:01 37.2 C 91 H 19 129/84 97 02/09/22 07:36 36.7 C 117 H 20 153/91 H 95 02/09/22 07:00 106 H 02/09/22 02:51 36.5 C 97 H 20 145/87 H 95 O2 Del Method O2 Flow Rate 02/09/22 12:01 Nasal Cannula 4 02/09/22 07:36 Nasal Cannula 4 02/09/22 07:00 02/09/22 02:51 Nasal Cannula 4 PG Care Time/CCT Total # of Minutes Spent Total Time Spent with Patient: Total time spent is greater than 50% in coordination of care (as documented) at patient's floor/unit and/or counseling patient: Coding Level of Care Code 00118 Subseq Hosp Care Lvl 3 Diagnoses Atrial fibrillation with RVR I48.91 Hyperlipidemia E78.5 Hypertension I10 Hypertension type: unspecified Prediabetes R73.03 Ischemic stroke I63.9 Depression F32.9 Glaucoma H40.9 Mild cognitive impairment G31.84 (1) Hypertension Hypertension type: unspecified Qualified Code(s): I10 - Essential (primary) hypertension
[2022-02-09] MEDS: NAPROXEN 250 MG TAB PO SCH (20:51)
[2022-02-09] MEDS: METOPROLOL TARTRATE 50 MG TAB PO SCH (20:52)
[2022-02-10 06:28] LABS: Hematocrit (blood only) 41.6 % (34.1-44.9); Hemoglobin 13.5 g/dl (12.0-16.0); Mean Corpuscular Hemoglobin 28.4 pg (25.0-34.0); Mean Corpuscular Hgb Conc 32.5 g/dL (32.0-36.0); Mean Corpuscular Volume 87.6 fL (80.0-100.0); Mean Platelet Volume 10.4 fL (9.4-12.3); Platelet Count 175 K/uL (130-400); RDW Coefficient of Variation 14.3 % (11.5-14.5); RDW Standard Deviation 46.2 fL (36.4-46.3); Red Blood Count 4.75 M/uL (3.93-5.22); White Blood Count 9.59 K/ul (4.8-10.8)
[2022-02-10 07:14] LABS: BUN Creatinine Ratio 28.1 (10-20); Creatinine Clr Calc Pharmacy 68.4 ml/min; Est GFR (African American) 94.3 ml/min; Est GFR (Non-African American) 81.4 ml/min; Magnesium 1.9 mg/dl (1.7-2.4); Potassium 3.5 mmol/L (3.5-5.1)
[2022-02-10] MEDS: ESCITALOPRAM OXALATE 10 MG TAB PO SCH (08:11)
[2022-02-10] MEDS: ASPIRIN 81 MG ECTAB PO SCH (08:11)
[2022-02-10] MEDS: NAPROXEN 250 MG TAB PO SCH (08:12)
[2022-02-10] MEDS: ATORVASTATIN 40 MG TAB PO SCH (08:12)
[2022-02-10] MEDS ORDERED: METOPROLOL SUCC 25MG EXT REL TAB PO SCH (09:00)
[2022-02-10] MEDS: METOPROLOL TARTRATE 50 MG TAB PO SCH (09:48)
--- NOTE | 2022-02-10 15:59 | Discharge Summary ---
Date of Service February 10, 2022 Admission HPI Per Admitting Provider Raul is an 86-year-old male with a past medical history of ischemic stroke, prediabetes, mild cognitive impairment, anemia, hyperlipidemia, hypertension who presented to the ER with shortness of breath of 3-4 days. Shortness of breath is worsened with exertion. No prior pulmonary/cardiac history. Was referred to ER from PCP for concern of irregular elevated heart rate. Patient is not anticoagulated, does not have a prior history of atrial fibrillation although is on metoprolol. In the ER patient is found to have mild pulmonary edema, mild troponin elevation, and EKG is with new A. fib with RVR. "Aristeo" is seen with her daughter at bedside. Yesterday developed shortness of breath more than normal. No chest pain. PCP referred her here for afib. INcreased shortness of breath with exertion the last few weeks. Much worse in last 24 hours. No orthopnea. No chest pressure or chest pressure NO fevers, chills, or sweats No cough NO nausea, vomiting, constipatoin, some loose bowels at baseline with no change. -BRBPR/melena Denies pain No past hx of afib no hx of heart attack, [place], or heart problems No strokes no DM Mild HTN on metoprolol Takes eydrops for glaucoma on 2x eye drop medications No double vision, was reported at one poitn but resolved on its own 'quite a while ago. No kidney problems NO bleeding problems Rare falls at home Medical History: Reviewed Medications: Reviewed Surgical History: Reviewed Allergies: Reviewed Social History: Remote tobacco use, no alcohol Code Status: DNR/DNI, advanced directive completed by patient previously, confirmed with patient and family at bedside Principal Diagnosis New atrial fibrillation Discharge Exam Constitutional WD/WN, vitals as above Eyes EOM intact bilaterally; no conjunctival abnormality ENMT external ear and nose normal, oropharynx normal Neck trachea midline, no thyromegaly normal visual inspection Respiratory normal respiratory effort, lungs clear to auscultation no respiratory distress Cardiovascular Rate/Rhythm: regular rate and + irregularly irregular Gastrointestinal (Abdomen) Inspection/Auscultation: abdomen normal to inspection; abdomen not distended Musculoskeletal no cyanosis or clubbing, extremities motor strength 5/5 Skin no rashes, warm and dry Neurologic moves all extremities and awake Psychiatric Orientation: alert and oriented to person; + not oriented to place and + uncooperative Discharge Data Allergies Allergy/AdvReac Type Severity Reaction Status Date / Time No Known Allergies Allergy Verified 02/08/22 15:05 Consultations 02/08/22 14:32 ED Decision to Admit Stat 02/10/22 15:56 Consult JERAMYG sanforizer Routine Diabetes Follow up Diabetes Follow-up Needed for Newly Diagnosed Diabetes Hospital Course (1) Atrial fibrillation with RVR: EKG: A. fib with RVR, lateral ST segment depressions with rate of 149. TSH within normal limits. Troponins normal. Chads-Vasc of 7 (age, female, HTN, prior CVA, DM), giving her a 11% annual stroke risk. Received Lasix 40 mg IV, was heparinized in ER, and received metoprolol 5 mg x 2 with rate improvement to approximately 107. - Echo on 02/08: Normal EF (no estimate given), LVH, mild/mod AV sclerosis, biatrial enlargement. - Discussed with family the idea of anticoagulation. She has about 1 fall every month or every other month despite family being very careful. Family prefer to hold anticoagulation at this time due to concern for fall/bleed. - HR ~90-100 bpm on 02/10. BP stable. Will discharge on Toprol XL 100 mg QAM. Can f/u with cardiology in 1-2 weeks. (2) Hyperlipidemia: - Atorvastatin 40mg daily (3) Hypertension: BP today is 130/85. - As above with metoprolol (4) Prediabetes: BSG 148 on admit, non-fasting. A1c was 6.6%. - Sliding scale insulin (5) Ischemic stroke: Past CVA. Denies deficits or hx of this. - On ASA daily and atorvastatin (6) Depression: - Continue Lexapro 10mg (7) Glaucoma: - Continue home eye drops (8) Mild cognitive impairment: - No acute intervention Plan CODE STATUS: DNR/DNI, discussed with family and they have completed a advanced directive Total Time Total Time Spent Total Time Spent (In Minutes): 35 Discharge Plan Discharge Items Patient Disposition: Home - Home Health Services Reason For Visit: NEW AFIB RVR Discharge Diagnosis: New atrial fibrillation Activity: Resume your previous activity Non-emergency contact: Primary Care Provider and Director Of Sales Call non-emergency contact if: your symptoms worsen Follow-up/Referrals: Jaspal Delong MD [Physician] - (Please see Dr. Delong or any cardiology pr ovider in 1-2 weeks.) Kimmie Pedroza, [Primary Care Provider] - Diet: Heart Healthy Addtl Attending Provider Instructions: Mrs. Perez, You were admitted with a fast heart rate called atrial fibrillation. This causes your heart to run faster than usual. Your heart has been doing overall well with an increased dose of your metoprolol. We decided to hold off on a blood thinner for you to prevent any increased bleeding risks. Please see Dr. Delong or any cardiology provider in 1-2 weeks to be sure you are doing well. Pending Studies at Discharge: No Stand-Alone Forms: My [facility] [employer], Smoking Cessation Medications and DC Order Prescriptions: New metoprolol succinate 100 mg tablet extended release 24 hr 100 mg PO DAILY Qty: 30 0RF Continued atorvastatin 40 mg tablet 40 mg PO DAILY Qty: 90 1RF escitalopram oxalate 10 mg tablet 10 mg PO DAILY Qty: 90 1RF dorzolamide 2 % drops 1 drp ophthalmic (eye) DAILY latanoprost 0.005 % drops 1 drp OPR HS aspirin [Alexys Low Dose Aspirin] 81 mg tablet,delayed release (DR/EC) 81 mg PO DAILY Qty: 30 3RF Discontinued metoprolol succinate 25 mg tablet extended release 24 hr 25 mg PO QAM Qty: 90 1RF Discharge Orders: Discharge Order (Routine); Ordered 02/10/22 Ordered By: Terrence Perez/Other Patient Handouts: 5 Steps for Eating Healthier, Type 2 Diabetes Admission Data Admit Date/Time: 02/08/22 14:38 Attending Provider: Terrence Ohraa Admit Provider: Corbin Mejia Primary Care Provider: Kimmie Pedroza Other Providers: Corbin Mejia Coding Level of Care Code 12513 OBS Care - Discharge Diagnoses Atrial fibrillation with RVR I48.91 Hyperlipidemia E78.5 Hypertension I10 Hypertension type: unspecified Prediabetes R73.03 Ischemic stroke I63.9 Depression F32.9 Glaucoma H40.9 Mild cognitive impairment G31.84
== END 2022-02-10 17:56 | disposition home health service (06) ==
LOC: 2S 12:07 → ED 12:07 → SUATTDRO 14:38 → 2S 16:35

== ENCOUNTER 2024-02-03 18:18 | Inpatient (IN) ==
[2024-02-03 19:04] LABS: iSTAT Hemoglobin 7.8 g/dl (12.0-16.0); iSTAT Ionized Calcium 1.29 mmol/l (1.12-1.32)
[2024-02-03 19:04] LABS: Hematocrit (blood only) 23.6 % (37.0-47.0); Hemoglobin 6.6 g/dl (12.0-16.0); Mean Corpuscular Hemoglobin 20.1 pg (25.0-34.0); Mean Platelet Volume 9.7 fL (9.4-12.4); Nucleated RBC # (auto) 0.38 K/uL (0.00-0.12); Nucleated RBC % (auto) 3.9 %; Platelet Count 469 K/uL (130-400); RDW Coefficient of Variation 17.6 % (11.5-14.5); RDW Standard Deviation 45.6 fL (36.4-46.3); Red Blood Count 3.28 M/uL (4.20-5.40); White Blood Count 9.75 K/ul (4.8-10.8)
[2024-02-03 19:13] LABS: Anion Gap 13 (3-11); BUN Creatinine Ratio 18.3 (10-20); Blood Urea Nitrogen 19 mg/dl (6-23); Calcium 10.4 mg/dl (8.6-10.3); Carbon Dioxide 21 mmol/L (21-32); Chloride 103 mmol/L (98-107); Glucose 160 mg/dl (70-99(Fasting)); Magnesium 1.4 mg/dl (1.7-2.4); Sodium 137 mmol/L (136-145)
[2024-02-03] MEDS: PANTOprazole 80 MG in DEXTROSE 5% 100 ML IV ONE (19:17)
[2024-02-03] MEDS ORDERED: SODIUM CHLORIDE 0.9% 50 ML IV PRN (19:17)
[2024-02-03] MEDS ORDERED: SODIUM CHLORIDE 0.9% 100 ML IV PRN (19:17)
[2024-02-03 19:18] LABS: Acanthocytes 1+; Basophils # (auto) 0.12 K/uL (0.00-0.20); Basophils % (auto) 1.2 %; Eosinophils # (auto) 0.07 K/uL (0.00-0.50); Eosinophils % (auto) 0.7 %; Immature Granulocytes # (auto) 0.18 K/uL (0.01-0.20); Immature Granulocytes % (auto) 1.8 %; Lymphocytes # (auto) 1.15 K/uL (1.20-3.40); Lymphocytes % (auto) 11.8 %; Monocytes % (auto) 9.2 %; Neutrophils # (auto) 7.33 K/uL (1.40-6.50); Neutrophils % (auto) 75.3 %; Ovalocytes 1+; Poikilocytosis Present; Polychromasia 1+; Schistocytes 1+
[2024-02-03 19:23] LABS: INR 1.9 (0.9-1.1); Partial Thromboplastin Ratio 1.2; Partial Thromboplastin Time 33 Seconds (21-31); Prothrombin Time 19.9 Seconds (9.0-12.0)
[2024-02-03] MEDS: PANTOPRAZOLE BOLUS/DRIP IV STA (19:49)
[2024-02-03] MEDS: PANTOprazole 40 MG in DEXTROSE 5% MINI-B 100 ML IV SCH (19:49)
[2024-02-03] MEDS ORDERED: ACETAMINOPHEN 1,000 MG/100 ML VIAL IV PRN (20:00)
--- NOTE | 2024-02-03 20:11 | History & Physical Report ---
Date of Service February 03, 2024 Assessment & Plan (1) GI bleed: (2) Symptomatic anemia: (3) Weight loss: (4) Diabetes mellitus, type 2: (5) Atrial fibrillation: (6) Hypertension: (7) Hyperlipidemia: (8) Depression: (9) Mild cognitive impairment: Plan GI bleed/symptomatic anemia- Hemoglobin on 05/20/2023 was 12.9 Hemoglobin on 10/06/2023 was 10.8 Hemoglobin today 6.6 Indices are hypochromic microcytic, suggesting ongoing blood loss Patient will be transfused 2 units PRBCs as ordered by the ED NPO Continue Protonix bolus and drip begun by the ED Will not reverse her Xarelto, but will not continue Consult gastroenterology. Patient and family would agree with an EGD being performed if needed Acetaminophen 1 g IV every 8 hours as needed for mild pain or fever Atrial fibrillation/hypertension- Holding Xarelto due to GI bleed Check a digoxin level, will resume digoxin as IV dose if normal level Hold diltiazem, furosemide, Xarelto and metoprolol succinate Lopressor 5 mg IV every 4 hours with hold parameters Hypomagnesemia- Magnesium 1.4 at admission Received 2 g magnesium sulfate IV from the ED, and recheck laboratories in the a.m. Diabetes mellitus- Hold metformin Placed on Accu-Cheks with NovoLog SSI History of Present Illness Chief Complaint: The patient is brought to the emergency department due to abnormal laboratories in the outpatient setting with a hemoglobin of 6.5. There were concerns regarding worsening fatigue, shortness of breath, dyspnea on exertion and decreased alertness noted by family over the past weeks to months. The patient herself is not able to contribute significantly to HPI or ROS due to cognitive impairment associated with previous stroke. Primary Care Provider: Kimmie Pedroza DO The patient is a 88-year-old female with a past medical history including B12 deficiency, diabetes mellitus, atrial fibrillation, ischemic stroke, mild cognitive impairment, depression, hyperlipidemia, hypertension and anemia. She was referred to the emergency department after outpatient laboratories revealed hemoglobin 6.5. Family has not noted any blood in stool, although she was noted to be heme positive in the ED. She was started on a Protonix bolus and drip by the ED, given 2 g of magnesium sulfate IV, and plan to transfuse 2 units PRBCs ordered by the ED. Her daughter, who is in attendance, agreed that if and invasive evaluation with EGD needed to be done, she would like it to be done. Allergies Allergy/AdvReac Type Severity Reaction Status Date / Time No Known Allergies Allergy Verified 02/03/24 11:39 Home Medications Medication Instructions Recorded Confirmed Type latanoprost 0.005 % eye drops 1 drp OPB HS 10/05/18 02/03/24 History dorzolamide 2 % eye drops 1 drp OPR Q8 02/08/22 02/03/24 History mecobalamin (vitamin B12) 1,000 1,000 mcg PO DAILY #30 tabs 03/03/23 02/03/24 Rx mcg chewable tablet (B12 Active) diltiazem HCl 120 mg 120 mg PO DAILY #90 caps 03/19/23 02/03/24 Rx capsule,extended release 24 hr sertraline 50 mg tablet 50 mg PO DAILY #90 tabs 05/15/23 02/03/24 Rx psyllium seed (sugar) oral powder 1 tbsp PO DAILY 05/20/23 02/03/24 History (Metamucil (sugar) oral powder) rivaroxaban 20 mg tablet (Xarelto) 20 mg PO DAILY #90 tabs 07/17/23 02/03/24 Rx digoxin 125 mcg (0.125 mg) tablet 125 mcg PO DAILY #90 tabs 08/20/23 02/03/24 Rx metoprolol succinate 100 mg 100 mg PO DAILY #90 tabs 09/23/23 02/03/24 Rx tablet,extended release 24 hr metoprolol succinate 50 mg 50 mg PO DAILY TAKE WITH THE 100 09/23/23 02/03/24 Rx tablet,extended release 24 hr MG METOPROLOL #90 tabs acetaminophen 500 mg capsule 1,000 mg PO UD PRN Pain 10/06/23 02/03/24 History metformin 1,000 mg tablet 1,000 mg PO BID #180 tabs 10/08/23 02/03/24 Rx atorvastatin 40 mg tablet 40 mg PO DAILY #90 tabs 12/18/23 02/03/24 Rx furosemide 20 mg tablet 60 mg PO DAILY 02/03/24 02/03/24 History furosemide 40 mg tablet 40 mg PO DAILY #7 tabs 02/03/24 02/03/24 Rx Past Med/Surg History Problem List (Updated 02/03/24 @ 23:52 by Abdon Mir MD) Symptomatic anemia GI bleed Weight loss Dyspnea on exertion B12 deficiency Diabetes mellitus, type 2 (02/2023) Diarrhea Atrial fibrillation Binocular vision disorder with diplopia Ischemic stroke Mild cognitive impairment Lumbar spinal stenosis Lumbar disc disease Cerebral microvascular disease Anterolisthesis Anemia Depression Glaucoma Hyperlipidemia Hypertension Medical History Pulmonary edema Atrial fibrillation with rapid ventricular response Surgical History S/P section H/O cataract extraction H/O neck surgery S/P lumbar fusion (12/2016) H/O: hysterectomy (2015) Family History Sister Alzheimer disease Father No problems noted. 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 Beliefs That Will Affect Care: None marital status: Current Living Situation: Spouse current occupational status: retired How many Children do You have: 3 Feels Safe at Home: Yes Safety Concerns: Feels Safe At This Time Childhood Exposure to Second-Hand Smoke: Yes Diet: regular Diet Comment: regular caffeine: Yes (tea) during the past year weight has: remained stable Dental Care, Regularly: No Physical Activity Frequency: Does not Exercise Seatbelt Use: always Sunscreen Use: No Assistive Devices: Denture - Upper, Denture - Lower and Glasses Review of Systems Review of Systems: The patient not able to contribute significantly to ROS as noted above Physical Exam Physical Exam: The patient is awake, unresponsive associated with cognitive impairment, well developed and well nourished, normocephalic and atraumatic, lying in bed and in no acute distress. HEENT--PERRL, EOMI, mucous membranes and oropharynx dry. Neck--supple. No JVD. No bruits. Thyroid normal, trachea midline, no adenopathy. Heart--normal S1 and S2. No murmurs, rubs or gallops. Lungs--clear bilaterally, no respiratory distress, no accessory muscle use. Abdomen--normal bowel sounds and soft. Nontender. Nondistended, no hernias or masses, no organomegaly. Extremities--no cyanosis or clubbing. No edema. There are good distal pulses b/l. Dermatologic--appears pale. Neurologic--cranial nerves II through XII grossly intact. Rheumatologic--normal range of motion. Psychiatric--flat affect Results & Data Results & Data Vital Signs (Past 12 Hours) Vital Signs Temp Pulse Pulse Resp BP BP Pulse Ox 02/03/24 19:30 82 22 125/48 L 98 02/03/24 18:46 71 02/03/24 18:32 76 16 99 02/03/24 18:25 36.8 C 107 H 12 101/59 L 96 02/03/24 18:19 75 18 127/39 L 96 O2 Del Method 02/03/24 19:30 Room Air 02/03/24 18:46 02/03/24 18:32 Room Air 02/03/24 18:25 Room Air 02/03/24 18:19 Laboratory Results Laboratory Results WBC 9.75 K/ul (4.8-10.8) 02/03/24 18:46 RBC 3.28 M/uL (4.20-5.40) L 02/03/24 18:46 Hgb 6.6 g/dl (12.0-16.0) L* 02/03/24 18:46 POC Hgb 7.8 g/dl (12.0-16.0) L 02/03/24 18:52 Hct 23.6 % (37.0-47.0) L 02/03/24 18:46 POC Hct 23 % (37-47) L 02/03/24 18:52 MCV 72.0 fL (80.0-100.0) L 02/03/24 18:46 MCH 20.1 pg (25.0-34.0) L 02/03/24 18:46 MCHC 28.0 g/dL (32.0-36.0) L 02/03/24 18:46 RDW Std Deviation 45.6 fL (36.4-46.3) 02/03/24 18:46 RDW Coeff of Guerrero 17.6 % (11.5-14.5) H 02/03/24 18:46 Plt Count 469 K/uL (130-400) H 02/03/24 18:46 MPV 9.7 fL (9.4-12.4) 02/03/24 18:46 Immature Gran % (Auto) 1.8 % 02/03/24 18:46 Neut % (Auto) 75.3 % 02/03/24 18:46 Lymph % (Auto) 11.8 % 02/03/24 18:46 [place] % (Auto) 9.2 % 02/03/24 18:46 Eos % (Auto) 0.7 % 02/03/24 18:46 Baso % (Auto) 1.2 % 02/03/24 18:46 Neut # (Auto) 7.33 K/uL (1.40-6.50) H 02/03/24 18:46 Lymph # (Auto) 1.15 K/uL (1.20-3.40) L 02/03/24 18:46 [place] # (Auto) 0.90 K/uL (0.11-0.59) H 02/03/24 18:46 Eos # (Auto) 0.07 K/uL (0.00-0.50) 02/03/24 18:46 Baso # (Auto) 0.12 K/uL (0.00-0.20) 02/03/24 18:46 Immature Gran # (Auto) 0.18 K/uL (0.01-0.20) 02/03/24 18:46 Absolute Nucleated RBC 0.38 K/uL (0.00-0.12) H 02/03/24 18:46 Nucleated RBC % (auto) 3.9 % 02/03/24 18:46 Polychromasia 1+ 02/03/24 18:46 Poikilocytosis Present 02/03/24 18:46 Ovalocytes 1+ 02/03/24 18:46 Acanthocytes (Spur) 1+ 02/03/24 18:46 Schistocytes 1+ 02/03/24 18:46 PT 19.9 Seconds (9.0-12.0) H 02/03/24 18:46 INR 1.9 (0.9-1.1) H 02/03/24 18:46 APTT 33 Seconds (21-31) H 02/03/24 18:46 PTT Ratio 1.2 02/03/24 18:46 POC Sodium 138 mmol/L (135-144) 02/03/24 18:52 Sodium 137 mmol/L (136-145) 02/03/24 18:46 POC Potassium 4.0 mmol/L (3.3-5.0) 02/03/24 18:52 Potassium 4.0 mmol/L (3.5-5.1) 02/03/24 18:46 POC Chloride 102 mmol/L (101-112) 02/03/24 18:52 Chloride 103 mmol/L (98-107) 02/03/24 18:46 Carbon Dioxide 21 mmol/L (21-32) 02/03/24 18:46 POC Total CO2 18 mmol/L (24-31) L 02/03/24 18:52 Anion Gap 13 (3-11) H 02/03/24 18:46 POC Anion Gap 22.0 mmol/L (16-25) 02/03/24 18:52 POC BUN 18 mg/dl (7-18) 02/03/24 18:52 BUN 19 mg/dl (6-23) 02/03/24 18:46 Creatinine 1.04 mg/dl (0.6-1.2) 02/03/24 18:46 POC Creatinine 1.0 mg/dl (0.6-1.3) 02/03/24 18:52 Est Cr Clr Drug Dosing Not Reportable 02/03/24 18:46 eGFR 52.02 02/03/24 18:46 BUN/Creatinine Ratio 18.3 (10-20) 02/03/24 18:46 Glucose 160 mg/dl (70-99(Fasting)) H 02/03/24 18:46 POC Glucose 164 mg/dl (70-99) H 02/03/24 21:31 POC Glucose (other) 163 mg/dl (70-99) H 02/03/24 18:52 Calcium 10.4 mg/dl (8.6-10.3) H 02/03/24 18:46 POC Ioniz Calcium Price 1.29 mmol/l (1.12-1.32) 02/03/24 18:52 Magnesium 1.4 mg/dl (1.7-2.4) L 02/03/24 18:46 Blood Type O Negative 02/03/24 18:46 Blood Type Recheck O Negative 02/03/24 20:27 Antibody Screen NEGATIVE 02/03/24 18:46 Crossmatch See Detail 02/03/24 18:46 Code Status & VTE Plan Code Status DNR/DNI VTE Prophylaxis Plan VTE Prophylaxis will be ordered: Yes PG Care Time/CCT Total # of Minutes Spent Total Time Spent with Patient: Total time spent is greater than 50% in coordination of care (as documented) at patient's floor/unit and/or counseling patient: Coding Level of Care Code 96914 INT INP/OBS CARE 3/75MIN Diagnoses GI bleed K92.2 Symptomatic anemia D64.9 Weight loss R63.4 Diabetes mellitus, type 2 E11.9 Permanent atrial fibrillation I48.21 Atrial fibrillation type: permanent Hypertension I10 Hypertension type: unspecified Mixed hyperlipidemia E78.2 Hyperlipidemia type: mixed hyperlipidemia Depression F32.9 Mild cognitive impairment G31.84 (5) Atrial fibrillation Atrial fibrillation type: permanent Qualified Code(s): I48.21 - Permanent atrial fibrillation (6) Hypertension Hypertension type: unspecified Qualified Code(s): I10 - Essential (primary) hypertension (7) Hyperlipidemia Hyperlipidemia type: mixed hyperlipidemia Qualified Code(s): E78.2 - Mixed hyperlipidemia
[2024-02-03] MEDS ORDERED: ACETAMINOPHEN 1000 MG/100 ML IV IV PRN (21:10)
[2024-02-03] MEDS ORDERED: CARBOHYDRATES FOR HYPOGLYCEMIA PO PRN (21:10)
[2024-02-03] MEDS ORDERED: GLUCAGON FOR INJ 1 MG VIAL SQ PRN (21:10)
[2024-02-03] MEDS ORDERED: DEXTROSE 50% 50 ML SYRINGE IV PRN (21:10)
[2024-02-03] MEDS ORDERED: GLUCOSE 40% GEL 15 GM TUBE PO PRN (21:10)
[2024-02-03] MEDS ORDERED: ONDANSETRON INJ 2 MG/ML 2 ML VIAL IV PRN (21:10)
[2024-02-03] MEDS ORDERED: GLUCOSE 10 TAB/TUBE PO PRN (21:10)
[2024-02-03] MEDS: MAGNESIUM SULFATE / D5W 1 GM/100 ML BAG IV SCH (21:16)
[2024-02-03] MEDS: LATANOPROST 0.005% OP SOLN 2.5 ML BTL OPB SCH (22:05)
[2024-02-03] MEDS: DORZOLAMIDE HCL 2% OPH SOLN 10 ML BTL OPR SCH (22:05)
[2024-02-03] MEDS: INSULIN ASPART PER UNIT CHARGE SC SCH (22:18)
[2024-02-03] MEDS: cefTRIAXone SODIUM 2,000 MG/50 ML BAG IV SCH (23:00)
--- NOTE | 2024-02-04 00:24 | Emergency Department Note ---
History of Present Illness General Chief Complaint: Abnormal Labs/Diagnostic Testing Stated Complaint: HEMOGLOBIN LOW Time Seen by Provider: 02/03/24 18:31 Source: patient and family History of Present Illness Provider Complaint: + abnormal lab Returns today for: + called because of abnormal lab/test Description of abnormal result: Hemoglobin 6.5. Context: + called for abnormal lab result Associated symptoms: + shortness of breath and + other (Weakness); no fever, no chills, no chest pain, no rash, no nausea or no abdominal pain HPI narrative: No hematuria dysuria melena hematochezia fever or vaginal bleeding.Patient is on Xarelto. Home Medications Medication Instructions Recorded Confirmed Type latanoprost 0.005 % eye drops 1 drp OPB HS 10/05/18 02/03/24 History dorzolamide 2 % eye drops 1 drp OPR Q8 02/08/22 02/03/24 History mecobalamin (vitamin B12) 1,000 1,000 mcg PO DAILY #30 tabs 03/03/23 02/03/24 Rx mcg chewable tablet (B12 Active) diltiazem HCl 120 mg 120 mg PO DAILY #90 caps 03/19/23 02/03/24 Rx capsule,extended release 24 hr sertraline 50 mg tablet 50 mg PO DAILY #90 tabs 05/15/23 02/03/24 Rx psyllium seed (sugar) oral powder 1 tbsp PO DAILY 05/20/23 02/03/24 History (Metamucil (sugar) oral powder) rivaroxaban 20 mg tablet (Xarelto) 20 mg PO DAILY #90 tabs 07/17/23 02/03/24 Rx digoxin 125 mcg (0.125 mg) tablet 125 mcg PO DAILY #90 tabs 08/20/23 02/03/24 Rx metoprolol succinate 100 mg 100 mg PO DAILY #90 tabs 09/23/23 02/03/24 Rx tablet,extended release 24 hr metoprolol succinate 50 mg 50 mg PO DAILY TAKE WITH THE 100 09/23/23 02/03/24 Rx tablet,extended release 24 hr MG METOPROLOL #90 tabs acetaminophen 500 mg capsule 1,000 mg PO UD PRN Pain 10/06/23 02/03/24 History metformin 1,000 mg tablet 1,000 mg PO BID #180 tabs 10/08/23 02/03/24 Rx atorvastatin 40 mg tablet 40 mg PO DAILY #90 tabs 12/18/23 02/03/24 Rx furosemide 20 mg tablet 60 mg PO DAILY 02/03/24 02/03/24 History furosemide 40 mg tablet 40 mg PO DAILY #7 tabs 02/03/24 02/03/24 Rx Allergies Allergy/AdvReac Type Severity Reaction Status Date / Time No Known Allergies Allergy Verified 02/03/24 11:39 Past Med/Surg History Problem List (Updated 02/04/24 @ 00:36 by Walter Linares MD) Anemia due to GI blood loss (Acute) Symptomatic anemia GI bleed Weight loss Dyspnea on exertion B12 deficiency Diarrhea Atrial fibrillation Binocular vision disorder with diplopia Ischemic stroke Lumbar spinal stenosis Lumbar disc disease Cerebral microvascular disease Anterolisthesis Anemia Medical History Dementia Diabetes mellitus, type 2 (02/2023) Mild cognitive impairment Depression Glaucoma Hyperlipidemia Hypertension Pulmonary edema Atrial fibrillation with rapid ventricular response Surgical History S/P section H/O cataract extraction H/O neck surgery S/P lumbar fusion (12/2016) H/O: hysterectomy (2015) Family History Sister Alzheimer disease Father , d/t TB No problems noted. Mother Congestive heart failure Brother Diabetes Denies family history of Ovarian cancer Prostate cancer Myocardial infarction Breast cancer Lung cancer Colorectal cancer Social History Smoking Status: Never smoker Second Hand Exposure: No; Do You Dip or Chew Tobacco: No; Hx Alcohol Use: No Hx Substance Use: No Preferred Language: Sinhala Communication Ability: Effective Visual Impairment: Limited Hearing Ability: Normal Carriage Rider Required: No Beliefs That Will Affect Care: None marital status: Current Living Situation: Spouse current occupational status: retired How many Children do You have: 3 Feels Safe at Home: Yes Safety Concerns: Feels Safe At This Time Childhood Exposure to Second-Hand Smoke: Yes Diet: regular Diet Comment: regular caffeine: Yes (tea) during the past year weight has: remained stable Dental Care, Regularly: No Physical Activity Frequency: Does not Exercise Seatbelt Use: always Sunscreen Use: No Assistive Devices: Denture - Upper, Denture - Lower and Glasses Physical Exam 2 Vital Signs: Vital Signs - 24 hr 02/03/24 18:19 02/03/24 18:25 02/03/24 18:32 Temperature 36.8 C Temperature Source Temporal Artery Sc an Pulse Rate 107 H 76 Pulse Rate [Apical ] 75 Respiratory Rate 18 12 16 Respiratory Effort / Characteristics Non-Labored Respiratory Depth Normal Blood Pressure 101/59 L Blood Pressure [Le ft Arm] 127/39 L Blood Pressure Sonam n 73 Blood Pressure Sonam n [Left Arm] 68 Pulse Oximetry 96 96 99 Oxygen Delivery Me thod Room Air Room Air Sepsis Recent Feve r Within 48 Hours No Sepsis New/Unexpla ined Change in Men mansoor Status N/A Sepsis Action Take n by Nursing No Action Required 02/03/24 18:46 02/03/24 19:30 Temperature Temperature Source Pulse Rate 71 Pulse Rate [Apical ] 82 Respiratory Rate 22 Respiratory Effort / Characteristics Non-Labored Respiratory Depth Normal Blood Pressure Blood Pressure [Le ft Arm] 125/48 L Blood Pressure Sonam n Blood Pressure Sonam n [Left Arm] 73 Pulse Oximetry 98 Oxygen Delivery Me thod Room Air Sepsis Recent Feve r Within 48 Hours Sepsis New/Unexpla ined Change in Men manosor Status Sepsis Action Take n by Nursing Physical Exam: Physical Exam GENERAL: oriented to person, place, and time. appears well-developed and well- nourished. HENT: Exam performed. - Head: Normocephalic and atraumatic. EYES: Conjunctivae and EOM are normal. Right eye exhibits no discharge. Left eye exhibits no discharge. No scleral icterus. NECK: Normal range of motion. Neck supple. No JVD present. CV: Normal rate, irregular rhythm, normal heart sounds and intact distal pulses. There is no peripheral edema. Palpable radial pulses bue. PULM/CHEST: Effort normal and breath sounds normal. No respiratory distress. No stridor. no wheezes. no rales. ABD: The abdomen is soft. There is no tenderness. Rectal: Rectal exam performed with female nursing decorator street and building. Patient had melanotic stool that was Hemoccult positive. NEURO: Motor and sensation grossly intact. SKIN: Skin is warm and dry. He is not diaphoretic. PSYCH: normal mood and affect. Behavior is normal. Judgment and thought content normal. Course Course 183: The patient was evaluated in room B6. A complete history and physical exam was performed Cardiac monitoring: An order was placed for continuous cardiac monitoring. The monitor shows a rate of 70 with atrial fibrilation rhythm interpreted by me External medical records reviewed. Patient hemoglobin 6.5. Protonix bolus and drip ordered for the patient. If hemoglobin was truly that low will transfuse. 1920: Vital signs stable. Hemoglobin 6.6Patient will be transfused 1 unit packed red blood cell and be admitted to [facility]. Administered Medications Dorzolamide HCl (Dorzolamide Hcl 2% Oph Soln 10 Ml Btl) 1 drops OPR Q8 GIORGI Stop: 03/04/24 21:59 Last Admin: 02/03/24 22:05 Dose: 1 drops Documented By: DOUG Pantoprazole Sodium 40 mg/ (Dextrose) 100 mls @ 20 mls/hr IV Q5H GIORGI Stop: 03/04/24 19:14 Last Admin: 02/03/24 19:49 Dose: 8 mg/hr, 20 mls/hr Documented By: NITA Ceftriaxone Sodium (Rocephin) 2,000 mg in 50 mls @ 100 mls/hr IV Q24H GIORGI Stop: 02/13/24 20:29 Last Infusion: 02/03/24 23:37 Dose: Infused Documented By: Admin: 02/03/24 23:00 Dose: 100 mls/hr Documented By: DOUG Insulin Aspart (Insulin Aspart Per Unit Charge) 0 units SC ACHS GIORGI Stop: 03/04/24 21:09 Last Admin: 02/03/24 22:18 Dose: 1 units Documented By: DOUG Co-signed By: [facility] Latanoprost (Latanoprost 0.005% Op Soln 2.5 Ml Btl) 1 drops OPB HS GIORGI Stop: 03/04/24 21:09 Last Admin: 02/03/24 22:05 Dose: 1 drops Documented By: DOUG Discontinued Medications Pantoprazole Sodium 80 mg/ (Dextrose) 120 mls @ 480 mls/hr IV NOW ONE Stop: 02/03/24 19:02 Last Infusion: 02/03/24 19:49 Dose: Infused Documented By: Admin: 02/03/24 19:17 Dose: 480 mls/hr Documented By: NITA Magnesium Sulfate/Dextrose (Magnesium Sulfate / D5w) 1 gm in 100 mls @ 100 mls/hr IV Q1H GIORGI Stop: 02/03/24 21:16 Last Admin: 02/03/24 23:19 Dose: 100 mls/hr Documented By: Infusion: 02/03/24 22:16 Dose: Infused Documented By: Admin: 02/03/24 21:16 Dose: 100 mls/hr Documented By: DOUG Pantoprazole Sodium (Pantoprazole Bolus/Drip) 1 each IV NOW STA Stop: 02/03/24 18:49 Last Admin: 02/03/24 19:49 Dose: Not Given Documented By: NITA Medical Decision Making Medical Records Attestation: I reviewed the patient's medical records. External medical records reviewed. Patient hemoglobin 6.5. Protonix bolus and drip ordered for the patient. If hemoglobin was truly that low will transfuse. Laboratory Data Attestation: I reviewed the patient's lab results. 02/03/24 18:46 02/03/24 18:46 Lab Results 02/03/24 02/03/24 Range/Units 18:46 18:52 WBC 9.75 (4.8-10.8) K/ul RBC 3.28 L (4.20-5.40) M/uL Hgb 6.6 L* (12.0-16.0) g/dl POC Hgb 7.8 L (12.0-16.0) g/dl Hct 23.6 L (37.0-47.0) % POC Hct 23 L (37-47) % MCV 72.0 L (80.0-100.0) fL MCH 20.1 L (25.0-34.0) pg MCHC 28.0 L (32.0-36.0) g/dL RDW Std Deviation 45.6 (36.4-46.3) fL RDW Coeff of Guerrero 17.6 H (11.5-14.5) % Plt Count 469 H (130-400) K/uL MPV 9.7 (9.4-12.4) fL Immature Gran % (Auto) 1.8 % Neut % (Auto) 75.3 % Lymph % (Auto) 11.8 % [place] % (Auto) 9.2 % Eos % (Auto) 0.7 % Baso % (Auto) 1.2 % Neut # (Auto) 7.33 H (1.40-6.50) K/uL Lymph # (Auto) 1.15 L (1.20-3.40) K/uL [place] # (Auto) 0.90 H (0.11-0.59) K/uL Eos # (Auto) 0.07 (0.00-0.50) K/uL Baso # (Auto) 0.12 (0.00-0.20) K/uL Immature Gran # (Auto) 0.18 (0.01-0.20) K/uL Absolute Nucleated RBC 0.38 H (0.00-0.12) K/uL Nucleated RBC % (auto) 3.9 % Polychromasia 1+ Poikilocytosis Present Ovalocytes 1+ Acanthocytes (Spur) 1+ Schistocytes 1+ PT 19.9 H (9.0-12.0) Seconds INR 1.9 H (0.9-1.1) APTT 33 H (21-31) Seconds PTT Ratio 1.2 POC Sodium 138 (135-144) mmol/L Sodium 137 (136-145) mmol/L POC Potassium 4.0 (3.3-5.0) mmol/L Potassium 4.0 (3.5-5.1) mmol/L POC Chloride 102 (101-112) mmol/L Chloride 103 (98-107) mmol/L Carbon Dioxide 21 (21-32) mmol/L POC Total CO2 18 L (24-31) mmol/L Anion Gap 13 H (3-11) POC Anion Gap 22.0 (16-25) mmol/L POC BUN 18 (7-18) mg/dl BUN 19 (6-23) mg/dl Creatinine 1.04 (0.6-1.2) mg/dl POC Creatinine 1.0 (0.6-1.3) mg/dl Est Cr Clr Drug Dosing Not Reportable eGFR 52.02 BUN/Creatinine Ratio 18.3 (10-20) Glucose 160 H (70-99(Fasting)) mg/dl POC Glucose (other) 163 H (70-99) mg/dl Calcium 10.4 H (8.6-10.3) mg/dl POC Ioniz Calcium Price 1.29 (1.12-1.32) mmol/l Magnesium 1.4 L (1.7-2.4) mg/dl Blood Type O Negative Antibody Screen NEGATIVE Crossmatch See Detail ECG Data Attestation: I personally reviewed and interpreted this ECG as follows: Rate (beats per minute): 75 Rhythm: atrial fibrillation Findings: no ST depression, no ST elevation or no prolonged QT Comparison ECG Date: from (February 2022) Change: no significant change Additional Comments: QRS 74 MDM Narrative 1831: The patient was evaluated in room B6. A complete history and physical exam was performed Cardiac monitoring: An order was placed for continuous cardiac monitoring. The monitor shows a rate of 70 with atrial fibrilation rhythm interpreted by me External medical records reviewed. Patient hemoglobin 6.5. Protonix bolus and drip ordered for the patient. If hemoglobin was truly that low will transfuse. 1920: Vital signs stable. Hemoglobin 6.6Patient will be transfused 1 unit packed red blood cell and be admitted to the [facility]. Impression & Plan Anemia due to GI blood loss Critical Care Time Critical Care Time: Yes Total Critical Care Time: 53 I have personally spent greater than 53 minutes of critical care time in the direct management of this patient. This includes bedside care, interpretation of diagnostic studies, and testing, discussion with consultants, patient, and family members, and other required patient management activities. This 53 minutes is in excess of all separately billable procedures. Discharge Plan Visit Data Chief Complaint: Abnormal Labs/Diagnostic Testing Stated Complaint: HEMOGLOBIN LOW ED Provider: Walter Linares Discharge Problem: Anemia due to GI blood loss Patient Disposition: Admitted As Inpatient Discharge Instructions Interventions: ED Discharge Assessment Last Done: 02/03/24 20:53
[2024-02-04] MEDS: METOPROLOL TARTRATE 1 MG/ML VIAL IV SCH (00:29)
[2024-02-04 02:40] LABS: Basophils # (auto) 0.12 K/uL (0.00-0.20); Basophils % (auto) 1.5 %; Eosinophils % (auto) 1.3 %; Hematocrit (blood only) 23.8 % (37.0-47.0); Immature Granulocytes # (auto) 0.15 K/uL (0.01-0.20); Immature Granulocytes % (auto) 1.9 %; Lymphocytes # (auto) 1.15 K/uL (1.20-3.40); Lymphocytes % (auto) 14.7 %; Mean Corpuscular Hemoglobin 21.1 pg (25.0-34.0); Mean Corpuscular Hgb Conc 29.4 g/dL (32.0-36.0); Mean Corpuscular Volume 71.7 fL (80.0-100.0); Mean Platelet Volume 9.8 fL (9.4-12.4); Monocytes # (auto) 0.86 K/uL (0.11-0.59); Neutrophils # (auto) 5.45 K/uL (1.40-6.50); Neutrophils % (auto) 69.6 %; Nucleated RBC # (auto) 0.11 K/uL (0.00-0.12); Nucleated RBC % (auto) 1.4 %; Platelet Count 387 K/uL (130-400); RDW Coefficient of Variation 17.4 % (11.5-14.5); RDW Standard Deviation 44.7 fL (36.4-46.3); Red Blood Count 3.32 M/uL (4.20-5.40); White Blood Count 7.83 K/ul (4.8-10.8)
[2024-02-04 02:55] LABS: Albumin Globulin Ratio 1.3 (0.9-2); Albumin Level 3.5 gm/dl (3.4-5.0); BUN Creatinine Ratio 19.1 (10-20); Calcium 9.3 mg/dl (8.6-10.3); Creatinine Clr Calc Pharmacy 45.4 ml/min; Globulin 2.6 gm/dl (2.5-4.0); Magnesium 2.1 mg/dl (1.7-2.4); Potassium 3.7 mmol/L (3.5-5.1); Total Protein 6.1 gm/dl (6.0-8.3)
[2024-02-04 02:59] LABS: Poikilocytosis Present; Polychromasia 3+
[2024-02-04 03:09] LABS: INR 1.6 (0.9-1.1); Partial Thromboplastin Ratio 1.1; Partial Thromboplastin Time 30 Seconds (21-31); Prothrombin Time 16.4 Seconds (9.0-12.0)
[2024-02-04 06:55] LABS: Ovalocytes 1+
[2024-02-04 07:32] LABS: Estimated Average Glucose 180 mg/dl; Hemoglobin A1C 7.9 % (4.5-5.6)
--- NOTE | 2024-02-04 09:54 | Gastrointestinal Consultation ---
<Statement entered by Clay Ross MD - 02/04/24 13:06> Patient seen and examined. Case discussed with ROSARIO Lock. Patient with anemia and no obvious overt signs of blood loss. Rec start work up with colonoscopy and EGD and if negative SB Video Capsule Endoscopy. Agree with transfusion.T I spoke with patient's daughter and Ning CHISHOLM, by phone. Discussed colonoscopy and EGD. These procedures, the alternatives including no work up or treatment, risks and benefits were discussed. Among the risks discussed included cardiorespiratory suppression, aspiration, bleeding, failure to diagnose cancer or other pathology and perforation requiring surgery. In addition we discussed that if specimens are obtained it may be deemed beneficial to send these for genetic/DNA testing. The patient's daughter claimed to understand all that was discussed, consented to all that was discussed and all of her questions were answered. She also agrees to rescind the patient's DNR/DNI order for the purpose of the procedures and immediate post procedure recovery. Will tentatively schedule both for tomorrow provided she can be prepped and her Hgb improves appropriately. Clay Ross MD Date of Consultation February 04, 2024 Assessment & Plan (1) Symptomatic anemia: Plan Patient is an 88 year old female referred to the ED due to low hgb on outpatient labs. she does not appear to have an active bleed, but did test heme positive on rectal exam in the ED. Case was discussed with Dr. Ross who helped advise on plan. - Dr. Ross plans to discuss options with the family as to whether they would like to proceed with an EGD/Colonoscopy. - continue to monitor hgb/hct. transfuse as needed. - further recommendations to follow, see Dr. Ross's append. History of Present Illness Reason for Consultation: GIB, anemia Requesting Physician: Abdon Mir MD Attending Physician: Maria Camacho MD History of Present Illness Patient is a 88 year old female with a past medical history of B12 deficiency, diabetes mellitus, atrial fibrillation on xarelto, ischemic stroke, mild cognitive impairment, depression, hyperlipidemia, hypertension and anemia. She was referred to the emergency department after outpatient labs were done showing a hemoglobin of 6.5. Patient is not oriented making history taking difficult. As such, history was obtained through chart and discussion with nursing. Family had reported not noticing any blood in stool, however, she tested heme positive on rectal exam in the ED. I spoke with nursing and she has not moved her bowel since admission. no signs of current active bleeding. 02/02 hgb 6.5 which trended to 6.6. 02/03 7 10/06/23 hgb 10.8 05/20/23 hgb 12.9 Allergies Allergy/AdvReac Type Severity Reaction Status Date / Time No Known Allergies Allergy Verified 02/03/24 11:39 Home Medications Medication Instructions Recorded Confirmed Type latanoprost 0.005 % eye drops 1 drp OPB HS 10/05/18 02/03/24 History dorzolamide 2 % eye drops 1 drp OPR Q8 02/08/22 02/03/24 History mecobalamin (vitamin B12) 1,000 1,000 mcg PO DAILY #30 tabs 03/03/23 02/03/24 Rx mcg chewable tablet (B12 Active) diltiazem HCl 120 mg 120 mg PO DAILY #90 caps 03/19/23 02/03/24 Rx capsule,extended release 24 hr sertraline 50 mg tablet 50 mg PO DAILY #90 tabs 05/15/23 02/03/24 Rx psyllium seed (sugar) oral powder 1 tbsp PO DAILY 05/20/23 02/03/24 History (Metamucil (sugar) oral powder) rivaroxaban 20 mg tablet (Xarelto) 20 mg PO DAILY #90 tabs 07/17/23 02/03/24 Rx digoxin 125 mcg (0.125 mg) tablet 125 mcg PO DAILY #90 tabs 08/20/23 02/03/24 Rx metoprolol succinate 100 mg 100 mg PO DAILY #90 tabs 09/23/23 02/03/24 Rx tablet,extended release 24 hr metoprolol succinate 50 mg 50 mg PO DAILY TAKE WITH THE 100 09/23/23 02/03/24 Rx tablet,extended release 24 hr MG METOPROLOL #90 tabs acetaminophen 500 mg capsule 1,000 mg PO UD PRN Pain 10/06/23 02/03/24 History metformin 1,000 mg tablet 1,000 mg PO BID #180 tabs 10/08/23 02/03/24 Rx atorvastatin 40 mg tablet 40 mg PO DAILY #90 tabs 12/18/23 02/03/24 Rx furosemide 20 mg tablet 60 mg PO DAILY 02/03/24 02/03/24 History furosemide 40 mg tablet 40 mg PO DAILY #7 tabs 02/03/24 02/03/24 Rx Patient History Medical History Dementia Diabetes mellitus, type 2 (02/2023) Mild cognitive impairment Depression Glaucoma Hyperlipidemia Hypertension Pulmonary edema Atrial fibrillation with rapid ventricular response Surgical History S/P section H/O cataract extraction H/O neck surgery S/P lumbar fusion (12/2016) H/O: hysterectomy (2015) Family History Sister Alzheimer disease Father , d/t TB No problems noted. Mother Congestive heart failure Brother Diabetes Denies family history of Ovarian cancer Prostate cancer Myocardial infarction Breast cancer Lung cancer Colorectal cancer Social History Smoking Status: Never smoker Second Hand Exposure: No; Do You Dip or Chew Tobacco: No; Hx Alcohol Use: No Hx Substance Use: No Preferred Language: Moroccan Communication Ability: Effective Visual Impairment: Limited Hearing Ability: Normal Wallpaper Inspector Required: No Beliefs That Will Affect Care: None marital status: Current Living Situation: Spouse current occupational status: retired How many Children do You have: 3 Feels Safe at Home: Yes Safety Concerns: Feels Safe At This Time Childhood Exposure to Second-Hand Smoke: Yes Diet: regular Diet Comment: regular caffeine: Yes (tea) during the past year weight has: remained stable Dental Care, Regularly: No Physical Activity Frequency: Does not Exercise Seatbelt Use: always Sunscreen Use: No Assistive Devices: Denture - Upper, Denture - Lower and Glasses Review of Systems Review of Systems: unobtainable. Physical Exam Constitutional: WD/WN, vitals as above Respiratory: normal respiratory effort, lungs clear to auscultation Cardiovascular: Rate/Rhythm: regular rate and regular rhythm Gastrointestinal (Abdomen): normal bowel sounds, soft, nontender, no hepatosplenomegaly Psychiatric: Orientation: alert Affect: euthymic affect Results & Data Vital Signs (Past 12 Hours) Vital Signs Temp Pulse Pulse Resp BP BP Pulse Ox 02/04/24 09:22 81 126/61 02/04/24 07:30 98.2 F 84 16 126/63 98 02/04/24 04:47 87 104/54 L 02/04/24 04:45 87 16 104/54 L 98 02/04/24 00:47 81 132/64 02/04/24 00:29 78 130/73 02/04/24 00:14 97.9 F 78 16 130/73 99 02/03/24 23:55 98.4 F 84 16 138/67 99 02/03/24 22:55 98.2 F 73 16 142/58 H 97 02/03/24 22:25 98.4 F 85 18 138/69 97 02/03/24 22:10 98.2 F 87 16 129/60 97 02/03/24 21:50 98.2 F 75 16 127/72 98 O2 Del Method 02/04/24 09:22 02/04/24 07:30 Room Air 02/04/24 04:47 02/04/24 04:45 Room Air 02/04/24 00:47 02/04/24 00:29 02/04/24 00:14 02/03/24 23:55 02/03/24 22:55 02/03/24 22:25 02/03/24 22:10 02/03/24 21:50 Coding Level of Care Code 19861 INT INP/OBS CARE 2MIN Diagnoses Symptomatic anemia D64.9
[2024-02-04] MEDS: IRON SUCROSE 300 MG in SODIUM CHLORIDE 0.9% 250 ML IV ONE (09:57)
[2024-02-04 10:01] LABS: Hemoglobin 6.8 g/dl (12.0-16.0); Mean Corpuscular Hemoglobin 20.7 pg (25.0-34.0); Mean Corpuscular Hgb Conc 29.6 g/dL (32.0-36.0); Mean Corpuscular Volume 69.9 fL (80.0-100.0); Mean Platelet Volume 9.8 fL (9.4-12.4); Nucleated RBC # (auto) 0.08 K/uL (0.00-0.12); Nucleated RBC % (auto) 1.1 %; Platelet Count 363 K/uL (130-400); RDW Coefficient of Variation 17.5 % (11.5-14.5); RDW Standard Deviation 44.4 fL (36.4-46.3); Red Blood Count 3.29 M/uL (4.20-5.40); White Blood Count 7.02 K/ul (4.8-10.8)
[2024-02-04] MEDS ORDERED: SODIUM CHLORIDE 0.9% 100 ML IV PRN (10:16)
[2024-02-04] MEDS ORDERED: SODIUM CHLORIDE 0.9% 50 ML IV PRN (10:16)
[2024-02-04 10:29] LABS: Basophils # (auto) 0.09 K/uL (0.00-0.20); Basophils % (auto) 1.3 %; Eosinophils # (auto) 0.09 K/uL (0.00-0.50); Eosinophils % (auto) 1.3 %; Immature Granulocytes # (auto) 0.12 K/uL (0.01-0.20); Immature Granulocytes % (auto) 1.7 %; Lymphocytes % (auto) 12.8 %; Microcytosis Present; Monocytes # (auto) 0.68 K/uL (0.11-0.59); Monocytes % (auto) 9.7 %; Neutrophils # (auto) 5.14 K/uL (1.40-6.50); Neutrophils % (auto) 73.2 %; Ovalocytes 1+; Polychromasia 1+; Tear Drop Cells 1+
--- NOTE | 2024-02-04 15:28 | Electrocardiogram Report ---
Test Reason : Blood Pressure : */* mmHG Vent. Rate : 75 BPM Atrial Rate : * BPM P-R Int : * ms QRS Dur : 74 ms QT Int : 346 ms P-R-T Axes : * 6 175 degrees QTcB Int : 386 ms Atrial fibrillation with premature ventricular or aberrantly conducted complexes Abnormal ECG When compared with ECG of 08-Feb-2022 12:20, Previous ECG has undetermined rhythm, needs review Nonspecific T wave abnormality, worse in Anterior leads Confirmed by Jaspal Delong ([id number]) on 02/04/2024 3:28:03 PM Referred By: Confirmed By: Jaspal Delong
--- NOTE | 2024-02-04 16:22 | Hospitalist Progress Note ---
Date of Service February 04, 2024 Assessment & Plan (1) GI bleed: Plan: P/w fatigue, weakness, weight loss. PCP ordered CBC and found hgb to be 6.6 down from baseline 05/20/2023 was 12.9 and then on 10/06/2023 was 10.8 Indices are hypochromic microcytic, suggesting possible acute on chronic blood loss anemia. Was Heme positive on exam in ER but no obvious bleeding-difficult historian due to dementia Fe studies consistent with severe Fe deficiency anemia-likely some slow source of occult bleeding in GI tract. Transfused 1 unit PRBCs and hgb still 6.8--> transfuse 2nd unit PRBCs and give Venofer 200mg IV x 1 Continue Protonix drip Holding home Xarelto Consult gastroenterology appreciated-plan for EGD and colonoscopy on . If no source of bleeding, plan for small bowel capsule endoscopy as outpt GI recommends NGT for bowel prep but pt has already pulled out 2 PIVs-hold off on NGT unless absolutely necessary although if refusing bowel prep, would not force it. COuld at least do EGD tomorrow Follow CBC, BMP Dc ceftriaxone started on admission-no evidence of infection or h/o varices (2) Symptomatic anemia: Plan: Acute blood loss anemia- as above (3) Atrial fibrillation: Plan: Permanent atrial fibrillation Holding Xarelto due to GI bleed digoxin level normal-holding home po digoxin-can give IV if has elevated rates Hold diltiazem, Xarelto and metoprolol succinate Continue scheduled Lopressor 5 mg IV every 4 hours with hold parameters for rate control INR likely elevated from DOAC but could also be Vit K deficiency from poor nutrition? (4) Hypomagnesemia: Plan: Magnesium 1.4 at admission Received 2 g magnesium sulfate IV from the ED, and now Mag level normal (5) Diabetes mellitus, type 2: Plan: Hold metformin from home Placed on Accu-Cheks with NovoLog SSI HgbA1C here 7.9% which is fairly good control for this age w/ comorbidities Plan Chronic medical problems: HTN-BPs stable, holding home meds and can resume once taking po HL-holding home statin Depression-continue to hold home sertraline and resume when can take po Mild cognitive impairment-supportive care DVT proph-Xarelto on hold for GI bleeding Dispo-continued stay on tele Admission and Anticipated Discharge Date Admission Date: February 03, 2024 Subjective Pt mostly stares at me and does shake her head yes and no in response to my questions. Denies abd pain. Shakes head "yes" to having EGD/colonoscopy tomorrow She pulled out 2 PIVs earlier today. I discussed her care with GI Tele with Afib, rates in the 80s Physical Exam Constitutional: WD/WN, vitals as above Respiratory: normal respiratory effort, lungs clear to auscultation Cardiovascular: Rate/Rhythm: regular rate and + irregularly irregular Extremities: no edema Gastrointestinal (Abdomen): normal bowel sounds, soft, nontender, no hepatosplenomegaly Psychiatric: Orientation: alert; + not oriented x 3 Results & Data Results & Data Vital Signs (Past 12 Hours) Vital Signs Temp Pulse Pulse Pulse Resp BP BP 02/04/24 14:51 36.6 C 76 18 131/68 02/04/24 14:29 36.6 C 76 17 131/68 02/04/24 13:29 36.4 C L 88 18 122/67 02/04/24 12:59 36.7 C 87 18 137/69 02/04/24 12:44 37 C 78 18 136/88 02/04/24 12:34 80 136/98 02/04/24 12:28 36.8 C 87 18 122/59 L 02/04/24 12:12 36.8 C 87 18 122/59 L 02/04/24 12:11 87 122/59 L 02/04/24 10:57 36.8 C 82 16 113/58 L 02/04/24 09:54 91 H 139/63 02/04/24 09:22 81 126/61 02/04/24 07:30 36.8 C 84 16 126/63 02/04/24 04:47 87 104/54 L 02/04/24 04:45 87 16 104/54 L Pulse Ox O2 Del Method 02/04/24 14:51 98 02/04/24 14:29 100 02/04/24 13:29 97 02/04/24 12:59 97 02/04/24 12:44 97 02/04/24 12:34 02/04/24 12:28 98 02/04/24 12:12 98 02/04/24 12:11 02/04/24 10:57 96 Room Air 02/04/24 09:54 02/04/24 09:22 02/04/24 07:30 98 Room Air 02/04/24 04:47 02/04/24 04:45 98 Room Air Laboratory Results CBC x 2, troponin, BMP, HgbA1C, Magnesium level, INR, digoxin level, LFTs, B12, folate, iron studies reviewed PG Care Time/CCT Total # of Minutes Spent Total Time Spent with Patient: Total time spent is greater than 50% in coordination of care (as documented) at patient's floor/unit and/or counseling patient: Coding Level of Care Code 67700 SUB INP/OBS CARE 2/35MIN Diagnoses GI bleed K92.2 Symptomatic anemia D64.9 Permanent atrial fibrillation I48.21 Atrial fibrillation type: permanent Hypomagnesemia E83.42 Diabetes mellitus, type 2 E11.9 (3) Atrial fibrillation Atrial fibrillation type: permanent Qualified Code(s): I48.21 - Permanent atrial fibrillation
[2024-02-04] MEDS: LAVAGE SOLUTION 4000ML PO ONE (17:18)
[2024-02-05 07:30] LABS: Basophils # (auto) 0.13 K/uL (0.00-0.20); Basophils % (auto) 1.6 %; Eosinophils # (auto) 0.12 K/uL (0.00-0.50); Eosinophils % (auto) 1.5 %; Hematocrit (blood only) 27.5 % (37.0-47.0); Hemoglobin 8.4 g/dl (12.0-16.0); Immature Granulocytes # (auto) 0.33 K/uL (0.01-0.20); Immature Granulocytes % (auto) 4.2 %; Lymphocytes % (auto) 11.4 %; Mean Corpuscular Hemoglobin 21.2 pg (25.0-34.0); Mean Corpuscular Hgb Conc 30.5 g/dL (32.0-36.0); Mean Corpuscular Volume 69.4 fL (80.0-100.0); Monocytes # (auto) 0.83 K/uL (0.11-0.59); Monocytes % (auto) 10.5 %; Neutrophils # (auto) 5.61 K/uL (1.40-6.50); Neutrophils % (auto) 70.8 %; Nucleated RBC % (auto) 2.5 %; RDW Coefficient of Variation 17.4 % (11.5-14.5); RDW Standard Deviation 43.6 fL (36.4-46.3); Red Blood Count 3.96 M/uL (4.20-5.40); White Blood Count 7.92 K/ul (4.8-10.8)
[2024-02-05 07:50] LABS: BUN Creatinine Ratio 11.4 (10-20); Calcium 9.5 mg/dl (8.6-10.3); Creatinine Clr Calc Pharmacy 57.4 ml/min; Potassium 3.4 mmol/L (3.5-5.1)
[2024-02-05 08:00] LABS: INR 1.1 (0.9-1.1); Mean Platelet Volume 9.8 fL (9.4-12.4); Platelet Count 373 K/uL (130-400); Prothrombin Time 12.3 Seconds (9.0-12.0)
[2024-02-05 08:02] LABS: Acanthocytes 1+; Hypochromasia Present; Ovalocytes 2+; Polychromasia 2+; Tear Drop Cells 1+
--- NOTE | 2024-02-05 08:47 | Anesthesiology Consultation ---
Date of Service February 05, 2024 Assessment & Plan (1) Encounter for pre-operative examination: Chart Review Chart Review: Acceptable Risk for Surgery, Patient NOT seen in Pre Admission Testing and entry manager initiated Consults Requested none Proposed Anesthesia Anesthesia Type: MAC History Surgery Operation Date: 02/05/24 16:30 Proposed Procedures p Colonoscopy EGD Cody Ross MD Height/Weight Height: 5 ft 5 in Weight: 75 kg Allergies Allergy/AdvReac Type Severity Reaction Status Date / Time No Known Allergies Allergy Verified 02/03/24 11:39 Medications Home Medications Medication Instructions Recorded Confirmed Last Taken latanoprost 0.005 % eye drops 1 drp OPB HS 10/05/18 02/03/24 02/07/22 dorzolamide 2 % eye drops 1 drp OPR Q8 02/08/22 02/03/24 02/08/22 mecobalamin (vitamin B12) 1,000 1,000 mcg PO DAILY #30 tabs 03/03/23 02/03/24 Unknown mcg chewable tablet (B12 Active) diltiazem HCl 120 mg 120 mg PO DAILY #90 caps 03/19/23 02/03/24 Unknown capsule,extended release 24 hr sertraline 50 mg tablet 50 mg PO DAILY #90 tabs 05/15/23 02/03/24 Unknown psyllium seed (sugar) oral powder 1 tbsp PO DAILY 05/20/23 02/03/24 Unknown (Metamucil (sugar) oral powder) rivaroxaban 20 mg tablet (Xarelto) 20 mg PO DAILY #90 tabs 07/17/23 02/03/24 Unknown digoxin 125 mcg (0.125 mg) tablet 125 mcg PO DAILY #90 tabs 08/20/23 02/03/24 Unknown metoprolol succinate 100 mg 100 mg PO DAILY #90 tabs 09/23/23 02/03/24 Unknown tablet,extended release 24 hr metoprolol succinate 50 mg 50 mg PO DAILY TAKE WITH THE 100 09/23/23 02/03/24 Unknown tablet,extended release 24 hr MG METOPROLOL #90 tabs acetaminophen 500 mg capsule 1,000 mg PO UD PRN Pain 10/06/23 02/03/24 Unknown metformin 1,000 mg tablet 1,000 mg PO BID #180 tabs 10/08/23 02/03/24 Unknown atorvastatin 40 mg tablet 40 mg PO DAILY #90 tabs 12/18/23 02/03/24 Unknown furosemide 20 mg tablet 60 mg PO DAILY 02/03/24 02/03/24 Unknown furosemide 40 mg tablet 40 mg PO DAILY #7 tabs 02/03/24 02/03/24 Unknown Active Medications Generic Name Dose Route Start Last Admin Trade Name Abby PRN Reason Stop Dose Admin Dorzolamide HCl 1 drops 02/03/24 22:00 02/05/24 05:29 Dorzolamide Hcl 2% Oph Soln 10 Ml Btl OPR 03/04/24 21:59 1 drops Q8 GIORGI Administration Pantoprazole Sodium 40 mg/ 100 mls @ 20 mls/hr 02/03/24 19:15 02/05/24 03:54 Dextrose IV 03/04/24 19:14 8 mg/hr Q5H GIORGI 20 mls/hr Administration 8 MG/HR Insulin Aspart 0 units 02/03/24 21:10 02/05/24 08:33 Insulin Aspart Per Unit Charge SC 03/04/24 21:09 Not Given ACHS GIORGI Latanoprost 1 drops 02/03/24 21:10 02/04/24 21:00 Latanoprost 0.005% Op Soln 2.5 Ml Btl OPB 03/04/24 21:09 1 drops HS GIORGI Administration Metoprolol Tartrate 5 mg 02/04/24 00:30 02/05/24 03:40 Metoprolol Tartrate 1 Mg/Ml Vial IV 03/05/24 00:29 5 mg Q4H GIORGI Administration Past Medical History Medical History Dementia Diabetes mellitus, type 2 (02/2023) Mild cognitive impairment Depression Glaucoma Hyperlipidemia Hypertension Pulmonary edema Atrial fibrillation with rapid ventricular response Past Family History Family History Sister Alzheimer disease Father , d/t TB No problems noted. Mother Congestive heart failure Brother Diabetes Denies family history of Ovarian cancer Prostate cancer Myocardial infarction Breast cancer Lung cancer Colorectal cancer Past Surgical History Surgical History S/P section H/O cataract extraction H/O neck surgery S/P lumbar fusion (12/2016) H/O: hysterectomy (2016) Social History Smoking Status: Never smoker Do You Dip or Chew Tobacco: No Hx Alcohol Use: No Hx Substance Use: No substance use type: does not use Physical Exam Vital Signs Last Vital Signs Temp 36.9 C 02/05/24 08:37 Pulse 91 H 02/05/24 08:37 Resp 18 02/05/24 08:37 BP 118/69 02/05/24 08:37 Pulse Ox 97 02/05/24 08:37 O2 Del Method Room Air 02/05/24 08:37 Testing Laboratory Results 02/05/24 07:05 02/05/24 07:05 PT 12.3 Seconds (9.0-12.0) H 02/05/24 07:05 INR 1.1 (0.9-1.1) 02/05/24 07:05 APTT 30 Seconds (21-31) 02/04/24 02:26 Hemoglobin A1c 7.9 % (4.5-5.6) H 02/04/24 02:26 Blood Type O Negative 02/03/24 18:46 Antibody Screen NEGATIVE 02/03/24 18:46 02/05/24 07:28 POC Glucose 167 H Electrocardiogram Date: 02/05/24 Findings: + AFIB @ (89; with PVCs) Chest X-Ray Date: 02/08/22 CLINICAL HISTORY: sob TECHNIQUE: Single frontal radiograph of the chest was obtained. Comparison: None available at the time of this dictation. FINDINGS: Exam is limited by underpenetration. Cardiomegaly is noted. The aortic arch is calcified. Prominence and cephalization of the vasculature is seen. No evidence of pleural effusion or pneumothorax. IMPRESSION: Cardiomegaly and mild pulmonary edema. Echocardiogram Date: 02/08/22 EF: Hyperdynamic, no EF given LV Function: normal Other Findings: + atrial enlargement (severe bilateral), + LVH (moderate) and + pertinent finding (mild PHTN) Valvular Disease: + MR (mild-mod)
--- NOTE | 2024-02-05 10:02 | History & Physical Bridge Note ---
Date of Service February 05, 2024 History & Physical Bridge Note I have examined the patient, reviewed the History & Physical and in the interval since the performance of the History & Physical I have noted the following changes of clinical significance: no changes noted. NG was not placed. patient was unable to complete prep and was able to get down very minimal amount of prep. stools still brown per nursing. patient offers no complaints. denies chest pain/sob. - will plan for EGD today. - since prep was not completed, will not proceed with colonoscopy.
--- NOTE | 2024-02-05 10:27 | Electrocardiogram Report ---
Test Reason : Blood Pressure : */* mmHG Vent. Rate : 89 BPM Atrial Rate : 120 BPM P-R Int : * ms QRS Dur : 86 ms QT Int : 324 ms P-R-T Axes : * 59 194 degrees QTcB Int : 394 ms Atrial fibrillation with premature ventricular or aberrantly conducted complexes Abnormal ECG When compared with ECG of 04-Feb-2024 05:04, (unconfirmed) Nonspecific T wave abnormality has replaced inverted T waves in Anterior leads Confirmed by Jaspal Delong ([id number]) on 02/05/2024 10:27:23 AM Referred By: Cy Mcneal Confirmed By: Jaspal Delong
--- NOTE | 2024-02-05 10:35 | Electrocardiogram Report ---
Test Reason : Blood Pressure : */* mmHG Vent. Rate : 87 BPM Atrial Rate : 340 BPM P-R Int : * ms QRS Dur : 78 ms QT Int : 326 ms P-R-T Axes : * 42 198 degrees QTcB Int : 392 ms Atrial fibrillation Abnormal ECG When compared with ECG of 03-Feb-2024 18:54, Inverted T waves have replaced nonspecific T wave abnormality in Anterior leads Confirmed by Jaspal Delong ([id number]) on 02/05/2024 10:34:30 AM Referred By: Cy Mcneal Confirmed By: Jaspal Delong
--- NOTE | 2024-02-05 13:13 | Hospitalist Progress Note ---
Date of Service February 05, 2024 Assessment & Plan (1) GI bleed: Plan: Fe studies consistent with severe Fe deficiency anemia-likely some slow source of occult bleeding in GI tract. Transfused 1 unit PRBCs and hgb still 6.8--> transfuse 2nd unit PRBCs and give Venofer 200mg IV x 1 Continue Protonix drip Holding home Xarelto Consult gastroenterology appreciated plan for EGD today, patient unable to tolerate bowel pre for colonoscopy Heme 8.4 today (2) Symptomatic anemia: Plan: Acute blood loss anemia- as above (3) Atrial fibrillation: Plan: Holding Xarelto due to GI bleed digoxin level normal-holding home po digoxin Hold diltiazem, Xarelto and metoprolol succinate Continue scheduled Lopressor 5 mg IV every 4 hours with hold parameters for rate control (4) Hypomagnesemia: Plan: Magnesium 1.4 at admission Received 2 g magnesium sulfate IV from the ED, and now Mag level normal (5) Diabetes mellitus, type 2: Plan: Hold metformin from home Placed on Accu-Cheks with NovoLog SSI Plan Chronic medical problems: HTN-BPs stable, holding home meds and can resume once taking po HL-holding home statin Depression-continue to hold home sertraline and resume when can take po Mild cognitive impairment-supportive care DVT proph-Xarelto on hold for GI bleeding Dispo-continued stay on tele Admission and Anticipated Discharge Date Admission Date: February 03, 2024 Subjective Pt resting comfortably in bed with son at bedside. No events overnight. Review of Systems Review of Systems: CONST: Negative for fever, body aches and chills. HENT: Negative for neck pain/stiffness, headache, congestion, sore throat, swelling. EYES: Negative for discharge/pain or vision changes. RESP: Negative for cough/hemoptysis and shortness of breath. CV: Negative chest pain, difficulty breathing, palpitations. ABD: Negative pain, nausea, vomiting. : Negative increase frequency, dysuria, blood in urine or stool. MUSC: Negative for muscle aches, edema. SKIN: Negative rash, lesions/sores. NEURO: Negative headache, dizziness, weakness. Physical Exam Physical Exam: GENERAL APPEARANCE NAD, activity normal for age, well developed/ well nourished, no cyanosis, pallor, or diaphoresis. EYES lids/conjunctiva normal. EARS/NOSE/THROAT Mucous membranes moist, nares normal, lips/teeth normal uvula midline without oral pharyngeal erythema, exudate or swelling TMs normal bilaterally. No lymphangitis/lymphedema. HEAD/NECK normocephalic atraumatic, no facial trauma, neck is supple. RESPIRATORY respiratory effort normal, speaks in full sentences, no tripod position, no accessory muscle use. Lungs clear to auscultation without rhonchi, wheezes, rales CARDIAC Regular rate and rhythm, no edema. ABDOMINAL Soft, ND/NT. No evidence of fluid wave. No pulsatile masses on exam, rebound tenderness, Clarke sign or pain over Mcburney's point. MUSCLES/EXTREMITIES No abnormal range of motion, no swelling. SKIN Warm, pink and dry. No rashes, dermatoses, petechiae or lesions. NEUROLOGICAL Speech is clear and appropriate. Normal level of consciousness. Gait and coordination are normal. 5/5 strength in all extremities. PSYCH Normal mood and affect. Judgement/competence is appropriate Results & Data Results & Data Vital Signs (Past 12 Hours) Vital Signs Temp Pulse Pulse Resp BP BP Pulse Ox 02/05/24 11:17 36.5 C 58 L 18 116/49 L 94 02/05/24 10:54 36.9 C 95 H 18 145/99 H 97 02/05/24 10:10 90 02/05/24 09:31 86 123/54 L 02/05/24 09:16 91 H 118/69 02/05/24 08:37 36.9 C 91 H 18 118/69 97 02/05/24 03:57 85 138/88 02/05/24 03:40 83 132/66 02/05/24 03:24 36.9 C 83 18 132/66 95 O2 Del Method 02/05/24 11:17 Room Air 02/05/24 10:54 Room Air 02/05/24 10:10 02/05/24 09:31 02/05/24 09:16 02/05/24 08:37 Room Air 02/05/24 03:57 02/05/24 03:40 02/05/24 03:24 Room Air PG Care Time/CCT Total # of Minutes Spent Total Time Spent with Patient: Total time spent is greater than 50% in coordination of care (as documented) at patient's floor/unit and/or counseling patient: Coding Level of Care Code 45199 SUB INP/OBS CARE MIN Diagnoses GI bleed K92.2 Symptomatic anemia D64.9 Permanent atrial fibrillation I48.21 Atrial fibrillation type: permanent Hypomagnesemia E83.42 Diabetes mellitus, type 2 E11.9 (3) Atrial fibrillation Atrial fibrillation type: permanent Qualified Code(s): I48.21 - Permanent atrial fibrillation
--- NOTE | 2024-02-05 14:13 | Gastroenterology Progress Note ---
<Statement entered by Clay Ross MD - 02/05/24 16:34> Patient refused to drink prep for colonoscopy and according to nurses would not allow NG and even pulled out multiple IVs. Nurse told me daughter was upset patient was not having colonsocopy today. I called daughter and left a detailed message as to why we could not do a colonoscopy without an adequate prep. Offered to do at least EGD if we were unable to do colonoscopy. I asked daughter to contact me on the message I left on her VM. As of yet she has not contacted me or the nurse. At this point no endoscopic studies scheduled although nurse stated she would again attempt laxative and NG today. Clay Ross MD Date of Service February 05, 2024 Assessment & Plan (1) Symptomatic anemia: Plan Patient with no complaints. prep was not completed. we were going to proceed with just an EGD, but we were told that family had questions about this plan and we were unable to reach family to discuss further. - at this time, procedures are on hold until we can reach the POA to decide how they would like to proceed. - we will continue to monitor. Admission and Anticipated Discharge Date Admission Date: February 03, 2024 Subjective patient offers no complaints. she was not able to tolerate much of her prep last evening. NG was not placed. stools were still brown. As such colonoscopy was cancelled with plan to proceed with an EGD. We were told that family had questions about this plan and we were unable to reach family. Review of Systems Review of Systems: All systems reviewed & are unremarkable except as noted in HPI & below Physical Exam Constitutional: WD/WN, vitals as above Respiratory: normal respiratory effort, lungs clear to auscultation Cardiovascular: Rate/Rhythm: regular rate and regular rhythm Gastrointestinal (Abdomen): normal bowel sounds, soft, nontender, no hepatosplenomegaly Psychiatric: Orientation: alert Results & Data Results & Data Vital Signs (Past 12 Hours) Vital Signs Temp Pulse Pulse Resp BP BP Pulse Ox 02/05/24 13:21 86 129/82 02/05/24 11:17 97.7 F 58 L 18 116/49 L 94 02/05/24 10:54 98.4 F 95 H 18 145/99 H 97 02/05/24 10:10 90 02/05/24 09:31 86 123/54 L 02/05/24 09:16 91 H 118/69 02/05/24 08:37 98.4 F 91 H 18 118/69 97 02/05/24 03:57 85 138/88 02/05/24 03:40 83 132/66 02/05/24 03:24 98.4 F 83 18 132/66 95 O2 Del Method 02/05/24 13:21 02/05/24 11:17 Room Air 02/05/24 10:54 Room Air 02/05/24 10:10 02/05/24 09:31 02/05/24 09:16 02/05/24 08:37 Room Air 02/05/24 03:57 02/05/24 03:40 02/05/24 03:24 Room Air Coding Level of Care Code 67072 SUB INP/OBS CARE 04/24MIN Diagnoses Symptomatic anemia D64.9
[2024-02-06 06:37] LABS: Basophils % (auto) 1.4 %; Eosinophils # (auto) 0.15 K/uL (0.00-0.50); Eosinophils % (auto) 2.1 %; Hematocrit (blood only) 25.9 % (37.0-47.0); Hemoglobin 7.7 g/dl (12.0-16.0); Immature Granulocytes # (auto) 0.29 K/uL (0.01-0.20); Lymphocytes # (auto) 1.06 K/uL (1.20-3.40); Lymphocytes % (auto) 14.7 %; Mean Corpuscular Hemoglobin 21.3 pg (25.0-34.0); Mean Corpuscular Hgb Conc 29.7 g/dL (32.0-36.0); Mean Corpuscular Volume 71.7 fL (80.0-100.0); Mean Platelet Volume 9.8 fL (9.4-12.4); Monocytes % (auto) 11.1 %; Neutrophils # (auto) 4.83 K/uL (1.40-6.50); Neutrophils % (auto) 66.7 %; Nucleated RBC # (auto) 0.15 K/uL (0.00-0.12); Nucleated RBC % (auto) 2.1 %; Platelet Count 349 K/uL (130-400); RDW Coefficient of Variation 17.4 % (11.5-14.5); RDW Standard Deviation 44.5 fL (36.4-46.3); Red Blood Count 3.61 M/uL (4.20-5.40); White Blood Count 7.23 K/ul (4.8-10.8)
[2024-02-06 06:46] LABS: INR 1.1 (0.9-1.1); Prothrombin Time 11.9 Seconds (9.0-12.0)
[2024-02-06 07:05] LABS: Acanthocytes 1+; Hypochromasia Present; Microcytosis Present; Ovalocytes 1+; Polychromasia 1+; Tear Drop Cells 1+
--- NOTE | 2024-02-06 09:06 | History & Physical Bridge Note ---
Date of Service February 06, 2024 History & Physical Bridge Note I have examined the patient, reviewed the History & Physical and in the interval since the performance of the History & Physical I have noted the following changes of clinical significance: no changes noted. Patient was able to finish her prep. stools reportedly clear. she offers no complaints. has been npo. - will plan for EGD and Colonoscopy today pending consent.
--- NOTE | 2024-02-06 09:52 | Hospitalist Progress Note ---
Date of Service February 06, 2024 Assessment & Plan (1) GI bleed: Plan: Continue Protonix drip Holding home Xarelto Consult gastroenterology appreciated plan for EGD and colonoscopy today Heme 7.7 today down from 8.4 (2) Symptomatic anemia: Plan: Acute blood loss anemia- as above (3) Atrial fibrillation: Plan: Holding Xarelto due to GI bleed digoxin level normal-holding home po digoxin Hold diltiazem, Xarelto and metoprolol succinate Continue scheduled Lopressor 5 mg IV every 4 hours (4) Hypomagnesemia: Plan: Magnesium 1.4 at admission Received 2 g magnesium sulfate IV from the ED, and now Mag level normal (5) Diabetes mellitus, type 2: Plan: Hold metformin from home Placed on Accu-Cheks with NovoLog SSI Plan Chronic medical problems: HTN-BPs stable, holding home meds and can resume once taking po HL-holding home statin Depression-continue to hold home sertraline and resume when can take po Mild cognitive impairment-supportive care DVT proph-Xarelto on hold for GI bleeding Dispo-continued stay on tele Admission and Anticipated Discharge Date Admission Date: February 03, 2024 Subjective No events overnight, pt resting comfortably in bed. Review of Systems Review of Systems: CONST: Negative for fever, body aches and chills. HENT: Negative for neck pain/stiffness, headache, congestion, sore throat, swelling. EYES: Negative for discharge/pain or vision changes. RESP: Negative for cough/hemoptysis and shortness of breath. CV: Negative chest pain, difficulty breathing, palpitations. ABD: Negative pain, nausea, vomiting. : Negative increase frequency, dysuria, blood in urine or stool. MUSC: Negative for muscle aches, edema. SKIN: Negative rash, lesions/sores. NEURO: Negative headache, dizziness, weakness. Physical Exam Physical Exam: GENERAL APPEARANCE NAD, activity normal for age, well developed/ well nourished, no cyanosis, pallor, or diaphoresis. EYES lids/conjunctiva normal. EARS/NOSE/THROAT Mucous membranes moist, nares normal, lips/teeth normal uvula midline without oral pharyngeal erythema, exudate or swelling TMs normal bilaterally. No lymphangitis/lymphedema. HEAD/NECK normocephalic atraumatic, no facial trauma, neck is supple. RESPIRATORY respiratory effort normal, speaks in full sentences, no tripod position, no accessory muscle use. Lungs clear to auscultation without rhonchi, wheezes, rales CARDIAC Regular rate and rhythm, no edema. ABDOMINAL Soft, ND/NT. No evidence of fluid wave. No pulsatile masses on exam, rebound tenderness, Clarke sign or pain over Mcburney's point. MUSCLES/EXTREMITIES No abnormal range of motion, no swelling. SKIN Warm, pink and dry. No rashes, dermatoses, petechiae or lesions. NEUROLOGICAL Speech is clear and appropriate. Normal level of consciousness. Gait and coordination are normal. 5/5 strength in all extremities. PSYCH Normal mood and affect. Judgement/competence is appropriate Results & Data Results & Data Vital Signs (Past 12 Hours) Vital Signs Temp Pulse Pulse Resp BP BP Pulse Ox 02/06/24 08:39 89 140/84 02/06/24 08:22 36.9 C 89 20 140/84 97 02/06/24 05:50 98 H 131/70 02/06/24 04:40 87 127/89 02/06/24 03:53 36.5 C 87 16 127/89 94 02/06/24 01:16 101 H 137/38 L 02/05/24 23:39 101 H 126/97 02/05/24 22:51 36.6 C 101 H 16 126/97 99 02/05/24 22:11 102 H 02/05/24 21:50 93 H 125/58 L O2 Del Method 02/06/24 08:39 02/06/24 08:22 Room Air 02/06/24 05:50 02/06/24 04:40 02/06/24 03:53 Room Air 02/06/24 01:16 02/05/24 23:39 02/05/24 22:51 Room Air 02/05/24 22:11 02/05/24 21:50 PG Care Time/CCT Total # of Minutes Spent Total Time Spent with Patient: Total time spent is greater than 50% in coordination of care (as documented) at patient's floor/unit and/or counseling patient: Coding Level of Care Code 26498 SUB INP/OBS CARE 2/35MIN Diagnoses GI bleed K92.2 Symptomatic anemia D64.9 Permanent atrial fibrillation I48.21 Atrial fibrillation type: permanent Hypomagnesemia E83.42 Diabetes mellitus, type 2 E11.9 (3) Atrial fibrillation Atrial fibrillation type: permanent Qualified Code(s): I48.21 - Permanent atrial fibrillation
--- NOTE | 2024-02-06 15:53 | GI REPORT ---
[facility] Patient: RENEE RODRIGUEZ : 1935 Sex at : Female Age: 88 Years Procedure: Colonoscopy Date: 02/06/2024 Attending Physician: Clay Ross MD Referring MD: Cy Mcneal DO Indications: - Anemia and heme positive stool Medications: - Monitored Anesthesia Care - See the Anesthesia note for documentation of the administered medications Complications: - No immediate complications. Estimated Blood Loss: - Estimated blood loss: None. Procedure: - ASA Grade Assessment: IV - A patient with severe systemic disease that is a constant threat to life. - The adult colonoscope was introduced through the anus and advanced to the cecum, identified by appendiceal orifice and ileocecal valve. - The colonoscopy was performed without difficulty. - The quality of the bowel preparation was adequate. Findings: - Many large-mouthed and medium-mouthed diverticula were found in the entire colon. - A localized area of erythematous mucosa was found in the cecum this had the appearance of perhaps resolving ischemic colitis. The rectum showed partially prolapsed mucosa. Impression: - Diverticulosis in the entire examined colon. - Erythematous mucosa in the cecum. - No specimens collected. Recommendation: Procedure Code(s): - 21518, Colonoscopy, flexible; diagnostic, including collection of specimen(s) by brushing or washing, when performed (separate procedure) Diagnosis Code(s): - K63.89, Other specified diseases of intestine - K57.30, Diverticulosis of large intestine without perforation or abscess without bleeding CPT(R) - 2023 copyright [employer]. All Rights Reserved. The CPT codes, CCI edits and ICD codes generated are intended as suggestions and were generated based on input data. These codes are preliminary and upon computer numeric control setter review may be revised to meet current compliance and payer requirements. The provider is responsible for the final determination of appropriate codes, and modifiers. Clay Ross MD This document has been electronically signed. Note Initiated:02/06/2024 Note Completed:02/06/2024 3:52 PM \\[id number]
--- NOTE | 2024-02-06 15:55 | GI REPORT ---
[facility] Patient: RENEE RODRIGUEZ : 1935 Sex at : Female Age: 88 Years Procedure: Upper GI endoscopy Date: 02/06/2024 Attending Physician: Clay Ross MD Referring MD: Cy Mcneal DO Indications: - Suspected upper gastrointestinal bleeding in patient with unexplained iron deficiency anemia Medications: - Monitored Anesthesia Care Complications: - No immediate complications. Estimated Blood Loss: - Estimated blood loss: None. Procedure: - ASA Grade Assessment: IV - A patient with severe systemic disease that is a constant threat to life. - The egd scope was introduced through the mouth and advanced to the second part of the duodenum. - The upper GI endoscopy was accomplished without difficulty. - The patient tolerated the procedure well. Findings: - The examined esophagus was normal. - A 4 cm hiatal hernia was present. Otherwise normal including a retroflexed view - The examined duodenum was normal. Impression: - Normal esophagus. - 4 cm hiatal hernia. - Otherwise normal including a retroflexed view - Normal examined duodenum. - No specimens collected. Recommendation: Procedure Code(s): - 45646, Esophagogastroduodenoscopy, flexible, transoral; diagnostic, including collection of specimen(s) by brushing or washing, when performed (separate procedure) Diagnosis Code(s): - D50.9, Iron deficiency anemia, unspecified - K44.9, Diaphragmatic hernia without obstruction or gangrene CPT(R) - 2023 copyright [employer]. All Rights Reserved. The CPT codes, CCI edits and ICD codes generated are intended as suggestions and were generated based on input data. These codes are preliminary and upon sanding machine buffer review may be revised to meet current compliance and payer requirements. The provider is responsible for the final determination of appropriate codes, and modifiers. Clay Ross MD This document has been electronically signed. Note Initiated:02/06/2024 Note Completed:02/06/2024 3:54 PM [email or web address]\Results\[email or web address]\[id number]
--- NOTE | 2024-02-06 15:58 | Communication Note ---
Date of Service: February 06, 2024 POST PROCEDURE NOTE See Provation notes for complete reports Summary: Colonoscopy: ? resolving ischemic colitis of cecum with fresh blood vs reaction to preparation Diffuse diverticulosis throughout the entire colon Partial rectal prolapse EGD: 4 cm hiatal hernia otherwise normal to second portion of duodenum. Rec: Advance diet as tolerated Iron supplements as tolerated If bleeds acutely - nuclear med bleeding scan vs CTA If she does not improve with time despite iron supplements consider OP SB Video Capsule Endoscopy. IP GI Service will sign off.
--- NOTE | 2024-02-06 16:13 | Anesthesiology Progress Note ---
Date of Service February 06, 2024 Anesthesia Post Procedure Vital Signs Vital Signs: Temp Pulse Pulse Resp BP BP Pulse Ox 02/06/24 16:06 87 16 123/64 98 02/06/24 15:51 36.9 C 103 H 12 80/64 L 99 02/06/24 14:41 36.9 C 75 16 145/87 H 99 02/06/24 14:39 114 H 02/06/24 13:14 107 H 147/77 H 02/06/24 12:59 95 H 152/85 H 02/06/24 11:21 36.8 C 104 H 18 152/85 H 98 02/06/24 08:54 122 H 132/74 02/06/24 08:39 89 140/84 02/06/24 08:38 88 02/06/24 08:22 36.9 C 89 20 140/84 97 02/06/24 05:50 98 H 131/70 02/06/24 04:40 87 127/89 02/06/24 03:53 36.5 C 87 16 127/89 94 02/06/24 01:16 101 H 137/38 L 02/05/24 23:39 101 H 126/97 02/05/24 22:51 36.6 C 101 H 16 126/97 99 02/05/24 22:11 102 H 02/05/24 21:50 93 H 125/58 L 02/05/24 20:23 98 H 144/73 H 02/05/24 20:16 98 H 144/73 H 02/05/24 19:24 36.6 C 98 H 16 144/73 H 99 02/05/24 18:48 99 H 02/05/24 17:27 92 H 152/72 H O2 Del Method 02/06/24 16:06 Room Air 02/06/24 15:51 Room Air 02/06/24 14:41 Room Air 02/06/24 14:39 02/06/24 13:14 02/06/24 12:59 02/06/24 11:21 Room Air 02/06/24 08:54 02/06/24 08:39 02/06/24 08:38 02/06/24 08:22 Room Air 02/06/24 05:50 02/06/24 04:40 02/06/24 03:53 Room Air 02/06/24 01:16 02/05/24 23:39 02/05/24 22:51 Room Air 02/05/24 22:11 02/05/24 21:50 02/05/24 20:23 02/05/24 20:16 02/05/24 19:24 Room Air 02/05/24 18:48 02/05/24 17:27 Transfer of Care Handoff Completed per policy Notes Mental Status: alert / awake / arousable Patient Amnestic to Procedure: Yes Nausea / Vomiting: adequately controlled Pain: adequately controlled Airway Patency, RR, SpO2: stable & adequate BP & HR: stable & adequate Hydration State: stable & adequate Anesthetic Complications: no major complications apparent and Pt Satisfied with anesthetic care
[2024-02-06] MEDS: ONDANSETRON INJ 2 MG/ML 2 ML VIAL ONE ×2 (16:56→18:01)
[2024-02-06] MEDS: PROPOFOL IV EMULSION 10 MG/ML 20 ML VIAL IV ONE ×2 (16:56→18:01)
[2024-02-06] MEDS: GLYCOPYRROLATE 0.2 MG/ML VIAL ONE (16:56)
[2024-02-06] MEDS: LIDOCAINE 2% 2 ML VIAL/AMP(20MG/ML) INFIL ONE ×2 (16:56→18:01)
[2024-02-07 08:01] LABS: Basophils # (auto) 0.09 K/uL (0.00-0.20); Basophils % (auto) 1.2 %; Eosinophils # (auto) 0.19 K/uL (0.00-0.50); Eosinophils % (auto) 2.5 %; Hematocrit (blood only) 26.7 % (37.0-47.0); Hemoglobin 7.9 g/dl (12.0-16.0); Immature Granulocytes # (auto) 0.33 K/uL (0.01-0.20); Immature Granulocytes % (auto) 4.3 %; Lymphocytes # (auto) 0.86 K/uL (1.20-3.40); Lymphocytes % (auto) 11.3 %; Mean Corpuscular Hemoglobin 21.6 pg (25.0-34.0); Mean Corpuscular Hgb Conc 29.6 g/dL (32.0-36.0); Mean Platelet Volume 9.7 fL (9.4-12.4); Monocytes # (auto) 0.85 K/uL (0.11-0.59); Monocytes % (auto) 11.1 %; Neutrophils # (auto) 5.32 K/uL (1.40-6.50); Neutrophils % (auto) 69.6 %; Nucleated RBC # (auto) 0.07 K/uL (0.00-0.12); Nucleated RBC % (auto) 0.9 %; Platelet Count 318 K/uL (130-400); RDW Coefficient of Variation 18.5 % (11.5-14.5); Red Blood Count 3.66 M/uL (4.20-5.40); White Blood Count 7.64 K/ul (4.8-10.8)
[2024-02-07 08:18] LABS: Calcium 9.4 mg/dl (8.6-10.3); Creatinine Clr Calc Pharmacy 60.3 ml/min; Potassium 3.4 mmol/L (3.5-5.1)
[2024-02-07 08:22] LABS: Acanthocytes 1+; Hypersegmented Neutrophils 1+; Hypochromasia Present; Ovalocytes 1+; Polychromasia 1+
[2024-02-07 08:40] VITALS: RESP 18; TEMP 98.6
--- NOTE | 2024-02-07 11:52 | Discharge Summary ---
Discharge Summary Date of Service February 07, 2024 Principal Dx & Hospital Course #1 = Principal Diagnosis (1) GI bleed: Continue Protonix drip Holding home Xarelto Consult gastroenterology appreciated plan for EGD and colonoscopy today Heme 7.7 today down from 8.4 EGD and colonoscopy done, show no active bleeding GI recommending continue iron supplementation (2) Symptomatic anemia: Acute blood loss anemia- as above (3) Atrial fibrillation: Holding Xarelto due to GI bleed digoxin level normal-holding home po digoxin Hold diltiazem, Xarelto and metoprolol succinate Continue scheduled Lopressor 5 mg IV every 4 hours (4) Hypomagnesemia: Magnesium 1.4 at admission Received 2 g magnesium sulfate IV from the ED, and now Mag level normal (5) Diabetes mellitus, type 2: Hold metformin from home Placed on Accu-Cheks with NovoLog SSI Plan Chronic medical problems: HTN-BPs stable, holding home meds and can resume once taking po HL-holding home statin Depression-continue to hold home sertraline and resume when can take po Mild cognitive impairment-supportive care EGD and colonoscopy done, show no active bleeding GI recommending continue iron supplementation Admission HPI Per Admitting Provider The patient is a 88-year-old female with a past medical history including B12 deficiency, diabetes mellitus, atrial fibrillation, ischemic stroke, mild cognitive impairment, depression, hyperlipidemia, hypertension and anemia. She was referred to the emergency department after outpatient laboratories revealed hemoglobin 6.5. Family has not noted any blood in stool, although she was noted to be heme positive in the ED. She was started on a Protonix bolus and drip by the ED, given 2 g of magnesium sulfate IV, and plan to transfuse 2 units PRBCs ordered by the ED. Her daughter, who is in attendance, agreed that if and invasive evaluation with EGD needed to be done, she would like it to be done. Discharge Exam GENERAL APPEARANCE NAD, activity normal for age, well developed/ well nourished, no cyanosis, pallor, or diaphoresis. EYES lids/conjunctiva normal. EARS/NOSE/THROAT Mucous membranes moist, nares normal, lips/teeth normal uvula midline without oral pharyngeal erythema, exudate or swelling TMs normal bilaterally. No lymphangitis/lymphedema. HEAD/NECK normocephalic atraumatic, no facial trauma, neck is supple. RESPIRATORY respiratory effort normal, speaks in full sentences, no tripod position, no accessory muscle use. Lungs clear to auscultation without rhonchi, wheezes, rales CARDIAC Regular rate and rhythm, no edema. ABDOMINAL Soft, ND/NT. No evidence of fluid wave. No pulsatile masses on exam, rebound tenderness, Clarke sign or pain over Mcburney's point. MUSCLES/EXTREMITIES No abnormal range of motion, no swelling. SKIN Warm, pink and dry. No rashes, dermatoses, petechiae or lesions. NEUROLOGICAL Speech is clear and appropriate. Normal level of consciousness. Gait and coordination are normal. 5/5 strength in all extremities. PSYCH Normal mood and affect. Judgement/competence is appropriate Discharge Plan Discharge Items Patient Disposition: Home - Self-Care Reason For Visit: GI BLEED, ANEMIA, A-FIB ON XARELTO Discharge Diagnosis: Anemia Activity: Resume your previous activity Non-emergency contact: Primary Care Provider Call non-emergency contact if: you have any medication questions and your symptoms worsen Follow-up/Referrals: Kimmie Pedroza DO [Primary Care Provider] - Diet: Regular Addtl Attending Provider Instructions: Prior records/ancillary studies reviewed. Triage nursing notes reviewed. History obtained from the []. The patient's history was concerning for possible gastrointestinal bleeding. Differential diagnosis: Etiologies such as esophagitis, variceal bleed, Boerhaaves, Guffey-Claros tear, gastritis, peptic ulcer disease, AVM, inflammatory bowel disease, ischemia, diverticulosis, colitis, malignancy, coagulopathy, thrombocytopenia, fissure, hemorrhoid, epistaxis , as well as others were entertained. Physical exam: As above. The patients vital signs were []. The patient has a benign abdomen. ER treatment provided: [] On reassessment the patient felt better. Diagnostics interpreted by me: ECG: [] The labs revealed [] Imaging studies: [] Consultation: A consultation was placed with the [] hospitalist. The case was discussed and diagnostics were reviewed. The patient was evaluated in the ER for inpatient care. This appears to be consistent with []. By the evaluation outlined above , I do not find evidence of a hemodynamically significant bleeding. The patient is not anemic, coagulopathy, or thrombocytopenic. The patient was informed about todays evaluation, limitations of todays evaluation and the need for close follow up. All questions were answered and the patient was pleased with the treatment. Education was given regarding supportive measures and concerning signs and symptoms for which to return to the emergency department. The patient was discharged in stable condition. Outpatient prescription management: [] Referral: The patient was asked to call their primary care provider tomorrow to arrange further evaluation and treatment as necessary. GI referral was recommended for further evaluation of the patients symptoms. Pending Studies at Discharge: No Stand-Alone Forms: My [facility], Smoking Cessation Medications and DC Order Prescriptions: New ferrous sulfate [Feosol] 325 mg (65 mg iron) tablet 325 mg PO DAILY Qty: 30 0RF Continued mecobalamin (vitamin B12) [B12 Active] 1,000 mcg tablet,chewable 1,000 mcg PO DAILY Qty: 30 0RF diltiazem HCl 120 mg capsule,extended release 24hr 120 mg PO DAILY Qty: 90 3RF sertraline 50 mg tablet 50 mg PO DAILY Qty: 90 2RF Xarelto 20 mg tablet 20 mg PO DAILY Qty: 90 3RF Rx Instructions: must administer with evening meal digoxin 125 mcg (0.125 mg) tablet 125 mcg PO DAILY Qty: 90 1RF metoprolol succinate 50 mg tablet extended release 24 hr 50 mg PO DAILY Qty: 90 3RF metoprolol succinate 100 mg tablet extended release 24 hr 100 mg PO DAILY Qty: 90 3RF metformin 1,000 mg tablet 1,000 mg PO BID Qty: 180 2RF atorvastatin 40 mg tablet 40 mg PO DAILY Qty: 90 1RF dorzolamide 2 % drops 1 drp OPR Q8 Metamucil (sugar) Powder 1 tbsp PO DAILY acetaminophen 500 mg capsule 1,000 mg PO UD PRN (Reason: Pain) furosemide 20 mg tablet 60 mg PO DAILY furosemide 40 mg tablet 40 mg PO DAILY Qty: 7 0RF Rx Instructions: once a day in the afternoon latanoprost 0.005 % drops 1 drp OPB HS Discharge Orders: Discharge Order (Routine); Ordered 02/07/24 Ordered By: Inocente Siegel Admission Data Admit Date/Time: 02/03/24 20:09 Attending Provider: Inocente Siegel Admit Provider: Abdon Mir Primary Care Provider: Kimmie Pedroza Other Providers: Abdon Mir; Clay Ross Hospital Stay Data Consultations 02/03/24 19:18 ED Decision to Admit Stat 02/03/24 20:03 Consult Gastroenterology Routine Procedures Performed Operation Date: 02/06/24 16:45 Actual Procedures p Colonoscopy - Clay Ross MD s Esophagogastroduodenoscopy - Clay Ross MD Pending Results Patient Have Any Pending Studies at Discharge: No Discharge Instructions Given to Patient (Per Discharging Provider) Prior records/ancillary studies reviewed. Triage nursing notes reviewed. History obtained from the []. The patient's history was concerning for possible gastrointestinal bleeding. Differential diagnosis: Etiologies such as esophagitis, variceal bleed, Boerhaaves, Guffey-Claros tear, gastritis, peptic ulcer disease, AVM, inflammatory bowel disease, ischemia, diverticulosis, colitis, malignancy, coagulopathy, thrombocytopenia, fissure, hemorrhoid, epistaxis , as well as others were entertained. Physical exam: As above. The patients vital signs were []. The patient has a benign abdomen. ER treatment provided: [] On reassessment the patient felt better. Diagnostics interpreted by me: ECG: [] The labs revealed [] Imaging studies: [] Consultation: A consultation was placed with the [] hospitalist. The case was discussed and diagnostics were reviewed. The patient was evaluated in the ER for inpatient care. This appears to be consistent with []. By the evaluation outlined above , I do not find evidence of a hemodynamically significant bleeding. The patient is not anemic, coagulopathy, or thrombocytopenic. The patient was informed about todays evaluation, limitations of todays evaluation and the need for close follow up. All questions were answered and the patient was pleased with the treatment. Education was given regarding supportive measures and concerning signs and symptoms for which to return to the emergency department. The patient was discharged in stable condition. Outpatient prescription management: [] Referral: The patient was asked to call their primary care provider tomorrow to arrange further evaluation and treatment as necessary. GI referral was recommended for further evaluation of the patients symptoms. Total Time Total Time Spent Total Time Spent (In Minutes): 50 Coding Level of Care Code 41195 INP/OBS DISCH >30 MIN Diagnoses GI bleed K92.2 Symptomatic anemia D64.9 Permanent atrial fibrillation I48.21 Atrial fibrillation type: permanent Hypomagnesemia E83.42 Diabetes mellitus, type 2 E11.9
[2024-02-07 12:35] VITALS: BP 131/76; PULSE 84
[2024-02-07 12:58] VITALS: O2SAT 98
--- NOTE | 2024-02-09 13:54 | Coding Query ---
CODING QUERY To promote full compliance with coding requirements relating to patient care, provider participation is requested in all cases of enrollment management vice president uncertainty. Please assist us with the question(s) below: 02/05 COLONOSCOPY-A localized area of erythematous mucosa was found in the cecum this had the appearance of perhaps resolving ischemic colitis. 02/05 GI communication-Summary: Colonoscopy: ? resolving ischemic colitis of cecum with fresh blood vs reaction to preparation Coding Question(s): Can you please further clarify if you concur with GI's assessment of possible resolving ischemic colitis as the source of the bleed? [ x] GI bleed 2/2 poss resolving ischemic colitis [ ] GI bleed 2/2 other [ ] GI Bleed 2/2 unknown. Physician's Response(s): Thank you Sheree Regan Principal Diagnosis: "that condition established after study, to be chiefly responsible for occasioning the admission of the patient to the hospital for care." Co-Existing Principal Diagnosis: "when two or more diagnoses equally meet the criteria for principal diagnosis as determined by the circumstances of admission, diagnostic work up, and/or therapy provided, and the Alphabetic Index, Tabular List, or another coding guideline does not provide sequencing direction, any one of the diagnoses may be sequenced first." "When the physician has documented what appears to be a current diagnosis in the body of the record, but has not included the diagnosis in the final diagnostic statement, the physician should be asked whether the diagnosis should be added." (Source Coding Clinic 2 QTR90. p3-4) MAUDE
== END 2024-02-07 13:30 | disposition home or self-care (01) | DRG 394 ==
LOC: ED 18:18 → SUATTDRO 20:09 → 2E 20:09

== ENCOUNTER 2024-11-07 09:42 | Inpatient (IN) ==
--- NOTE | 2024-11-07 09:54 | Emergency Department Note ---
Impression & Plan Shakiness, Anemia ED Provider Note NAME: RENEE RODRIGUEZ AGE: 88 SEX: F : 1935 ARRIVES VIA: Ambulance INFORMANT: Patient ED PROVIDER(S): Silvestre Novak DO CHIEF COMPLAINT: shaky HPI: Patient is an 88-year-old female with a past medical history of diabetes, depression, A-fib, hypertension hyperlipidemia who presents ER following waking up and shaking. She notes that she woke up from bedroom and was a little shaky. She denies all other complaints. Per report from EMS she had a 10 to 15-second episode of where she was shaking again and she admits that she was thinking about the treatment was well at that time. She does not now remember what the dream was. She denies any headache or change in vision. No chest pain or shortness of breath. No nausea, vomiting, or diarrhea. No dysuria, urgency, or frequency. Per EMS she was awake the whole time. ADDITIONAL HISTORY OBTAINED: Per HPI Chronic Medical/Social Conditions Affecting Care: Per HPI PAST MEDICAL HISTORY:See Below PAST SURGICAL HISTORY:See Below FAMILY HISTORY:See Below SOCIAL HISTORY:See Below HOME MEDICATIONS:See Below ALLERGIES:See Below VITALS:See Below PHYSICAL EXAMINATION: GENERAL: Sitting up in bed, alert, well appearing, well nourished, no distress, non-toxic EYE EXAM: normal conjunctiva. PERRL and EOM's grossly intact. OROPHARYNX: no exudate, no erythema, lips, buccal mucosa, and tongue normal and mucous membranes are moist NECK: supple, no nuchal rigidity, no adenopathy, non-tender LUNGS: Clear to auscultation. Normal chest wall mechanics HEART: no murmurs, S1 normal and S2 normal ABDOMEN: abdomen soft, non-tender, normo-active bowel sounds, no masses, no rebound or guarding. BACK: Back is symmetrical on inspection and there is no deformity, no midline tenderness, no CVA tenderness. SKIN: no rashes and no bruising UPPER EXTREMITIES: upper extremities are grossly normal. LOWER EXTREMITIES: No pitting edema. NEURO EXAM: Normal sensorium, cranial nerves II-XII intact, normal speech, no weakness of arms, no weakness of legs. [No drift. Finger to nose intact. Gross sensation intact.] MEDICAL DECISION MAKING: Patient is an 88-year-old female who presents ER brought in by daughter for confusion per daughter's report. Patient has been much more confused than her baseline today. She has been more agitated. She nearly passed out. IV was established and blood work was obtained. Labs show no significant leukocytosis. Mild anemia at 11.4. BMP with LFTs bilirubin and troponin lipase were normal. UA did have nitrites bacteria leuks and whites. Do feel this is most consistent with a UTI. Patient was given 2 g Rocephin. With the confusion did discuss case with the hospitalist for further evaluation management treatment. CT head was negative. Chest x-ray was unremarkable. Consults/Care Managements Discussions: Per [facility] Triage Nursing notes reviewed. Limited review of prior medical records performed Vital Signs: reviewed and remarkable for no significant abnormalities Differential diagnosis: Infection, dehydration, metabolic abnormality, hypo/hyperglycemia, electrolyte disturbance, anemia, hypoxia, cardiac sources, intracerebral event, toxicologic, neurologic, as well as other pathologies. ER treatment provided: See below Diagnostics interpreted by me include EKG and cardiac monitoring as listed below: -Cardiac Monitoring: An order was placed for continuous cardiac monitoring. The monitor shows a rate of 70 with sinus rhythm. -ECG: A-fib rate 74 Normal axis T wave inversions in inferior leads T wave version in the lateral leads QTc 404 No significant change from previous -Laboratory studies:Interpreted by me as stated above in MDM and shown below. Imaging studies: Xrays: As interpreted by me: Portable AP upright 1 view of the chest shows no focal infiltrate CTs show: CT head negative per radiology Procedures:none Critical Care: None Past Med/Surg History Problem List (Updated 11/07/24 @ 10:57 by Silvestre Novak DO) Anemia (Acute) Shakiness (Acute) Atrial fibrillation Dementia Diabetes mellitus, type 2 (02/2023) Depression Hyperlipidemia Hypertension Chronic anticoagulation Hypercalcemia Anemia due to GI blood loss (Acute) Dyspnea on exertion B12 deficiency Diarrhea Binocular vision disorder with diplopia Ischemic stroke Lumbar spinal stenosis Lumbar disc disease Cerebral microvascular disease Anterolisthesis Anemia Medical History Hypomagnesemia Symptomatic anemia GI bleed Weight loss Mild cognitive impairment Glaucoma Pulmonary edema Atrial fibrillation with rapid ventricular response Surgical History S/P section H/O cataract extraction H/O neck surgery S/P lumbar fusion (12/2016) H/O: hysterectomy (2016) Family History Sister Alzheimer disease Father No problems noted. 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 Beliefs That Will Affect Care: None marital status: Current Living Situation: Spouse current occupational status: retired How many Children do You have: 3 Feels Safe at Home: Yes Childhood Exposure to Second-Hand Smoke: Yes Diet: regular Diet Comment: regular caffeine: Yes (tea) during the past year weight has: remained stable Dental Care, Regularly: No Physical Activity Frequency: Does not Exercise Seatbelt Use: always Sunscreen Use: No Assistive Devices: None Allergies Allergies Allergy/AdvReac Type Severity Reaction Status Date / Time No Known Allergies Allergy Verified 11/07/24 12:36 Home Meds Home Medications Medication Instructions Recorded Confirmed latanoprost 0.005 % eye drops 1 drp OPB HS 10/05/18 11/07/24 dorzolamide 2 % eye drops 1 drp OPR Q8 02/08/22 11/07/24 psyllium seed (sugar) oral powder 1 tbsp PO DAILY 05/20/23 11/07/24 (Metamucil (sugar) oral powder) acetaminophen 500 mg capsule 1,000 mg PO UD PRN Pain 10/06/23 11/07/24 loperamide 2 mg capsule (Imodium 2 mg PO Q6H PRN Diarrhea 06/02/24 11/07/24 A-D) metoprolol succinate 50 mg 50 mg PO DAILY 11/07/24 11/07/24 tablet,extended release 24 hr Previous Rx's Medication Instructions Recorded mecobalamin (vitamin B12) 1,000 1,000 mcg PO DAILY #30 tabs 03/03/23 mcg chewable tablet (B12 Active) furosemide 20 mg tablet 60 mg (3 x 20 mg) PO DAILY #270 04/09/24 tabs ferrous sulfate 325 mg (65 mg 325 mg PO DAILY #90 tabs 05/11/24 iron) tablet (Feosol) sertraline 50 mg tablet 50 mg PO DAILY #90 tabs 05/31/24 atorvastatin 40 mg tablet 40 mg PO DAILY #90 tabs 06/09/24 diltiazem HCl 120 mg 120 mg PO DAILY #90 caps 06/09/24 capsule,extended release 24 hr metformin 1,000 mg tablet 1,000 mg PO BID #180 tabs 06/09/24 pantoprazole 40 mg tablet,delayed 40 mg PO DAILY #90 tabs 06/10/24 release rivaroxaban 20 mg tablet (Xarelto) 20 mg PO DAILY #90 tabs 08/10/24 metoprolol succinate 100 mg 100 mg PO DAILY #90 tabs 09/30/24 tablet,extended release 24 hr digoxin 125 mcg (0.125 mg) tablet 125 mcg PO DAILY #90 tabs 10/04/24 Results & Data (ED) Vital Signs Vital Signs - 24 hr 11/07/24 09:48 11/07/24 09:50 11/07/24 09:51 Temperature 37.0 C Temperature Source Oral Pulse Rate 72 72 Pulse Rate [Apical] Pulse Rate from SpO2 Sensor Pulse Rhythm Regular Pulse Rhythm [Apical] Pulse Strength [Apical] Respiratory Rate 16 16 Respiratory Effort / Characteristics Non-Labored Spontaneous Respiratory Depth Normal Respiratory Pattern Regular Blood Pressure 161/93 H 161/93 H Blood Pressure [Right Arm] Blood Pressure Mean 128 115 Blood Pressure Mean [Right Arm] Blood Pressure Position [Right Arm] Pulse Oximetry 97 97 Oxygen Delivery Method Room Air Room Air Sepsis Recent Fever Within 48 Hours No Sepsis New/Unexplained Change in Mental Status No Sepsis Action Taken by Nursing No Action Required 11/07/24 09:54 11/07/24 09:55 11/07/24 09:55 Temperature Temperature Source Pulse Rate 71 Pulse Rate [Apical] 72 Pulse Rate from SpO2 Sensor Pulse Rhythm Pulse Rhythm [Apical] Pulse Strength [Apical] Respiratory Rate 16 Respiratory Effort / Characteristics Non-Labored Spontaneous Respiratory Depth Normal Respiratory Pattern Blood Pressure Blood Pressure [Right Arm] 161/93 H Blood Pressure Mean Blood Pressure Mean [Right Arm] 115 Blood Pressure Position [Right Arm] Pulse Oximetry 97 97 Oxygen Delivery Method Room Air Room Air Sepsis Recent Fever Within 48 Hours Sepsis New/Unexplained Change in Mental Status Sepsis Action Taken by Nursing 11/07/24 10:36 11/07/24 11:00 11/07/24 11:33 Temperature Temperature Source Pulse Rate 75 72 75 Pulse Rate [Apical] Pulse Rate from SpO2 Sensor 81 82 78 Pulse Rhythm Pulse Rhythm [Apical] Pulse Strength [Apical] Respiratory Rate 18 20 20 Respiratory Effort / Characteristics Respiratory Depth Respiratory Pattern Blood Pressure 193/93 H 171/103 H 183/81 H Blood Pressure [Right Arm] Blood Pressure Mean 126 115 131 Blood Pressure Mean [Right Arm] Blood Pressure Position [Right Arm] Pulse Oximetry 94 Oxygen Delivery Method Sepsis Recent Fever Within 48 Hours Sepsis New/Unexplained Change in Mental Status Sepsis Action Taken by Nursing 11/07/24 11:55 11/07/24 13:00 11/07/24 13:21 Temperature Temperature Source Pulse Rate 68 81 Pulse Rate [Apical] 78 Pulse Rate from SpO2 Sensor 72 75 Pulse Rhythm Pulse Rhythm [Apical] Regular Pulse Strength [Apical] Normal Respiratory Rate 16 17 17 Respiratory Effort / Characteristics Non-Labored Respiratory Depth Normal Respiratory Pattern Regular Blood Pressure 169/68 H Blood Pressure [Right Arm] 142/66 H Blood Pressure Mean 101 Blood Pressure Mean [Right Arm] 91 Blood Pressure Position [Right Arm] Lying Pulse Oximetry 94 92 93 Oxygen Delivery Method Room Air Sepsis Recent Fever Within 48 Hours Sepsis New/Unexplained Change in Mental Status Sepsis Action Taken by Nursing 11/07/24 13:30 Temperature Temperature Source Pulse Rate Pulse Rate [Apical] Pulse Rate from SpO2 Sensor Pulse Rhythm Pulse Rhythm [Apical] Pulse Strength [Apical] Respiratory Rate Respiratory Effort / Characteristics Respiratory Depth Respiratory Pattern Blood Pressure 142/66 H Blood Pressure [Right Arm] Blood Pressure Mean 88 Blood Pressure Mean [Right Arm] Blood Pressure Position [Right Arm] Pulse Oximetry Oxygen Delivery Method Sepsis Recent Fever Within 48 Hours Sepsis New/Unexplained Change in Mental Status Sepsis Action Taken by Nursing Laboratory Data 11/07/24 09:53 11/07/24 09:53 Lab Results 11/07/24 11/07/24 Range/Units 09:53 11:12 WBC 7.74 (4.8-10.8) K/ul RBC 4.06 L (4.20-5.40) M/uL Hgb 11.4 L (12.0-16.0) g/dl Hct 35.8 L (37.0-47.0) % MCV 88.2 (80.0-100.0) fL MCH 28.1 (25.0-34.0) pg MCHC 31.8 L (32.0-36.0) g/dL RDW Std Deviation 48.4 H (36.4-46.3) fL RDW Coeff of [place] 14.9 H (11.5-14.5) % Plt Count 315 (130-400) K/uL MPV 9.6 (9.4-12.4) fL Immature Gran % (Auto) 4.5 % Neut % (Auto) 74.9 % Lymph % (Auto) 9.4 % [place] % (Auto) 6.8 % Eos % (Auto) 3.0 % Baso % (Auto) 1.4 % Neut # (Auto) 5.79 (1.40-6.50) K/uL Lymph # (Auto) 0.73 L (1.20-3.40) K/uL [place] # (Auto) 0.53 (0.11-0.59) K/uL Eos # (Auto) 0.23 (0.00-0.50) K/uL Baso # (Auto) 0.11 (0.00-0.20) K/uL Immature Gran # (Auto) 0.35 H (0.01-0.20) K/uL Sodium 138 (136-145) mmol/L Potassium 4.4 (3.5-5.1) mmol/L Chloride 105 (98-107) mmol/L Carbon Dioxide 26 (21-32) mmol/L Anion Gap 7 (3-11) BUN 12 (6-23) mg/dl Creatinine 0.83 (0.6-1.2) mg/dl Est Cr Clr Drug Dosing 48.9 ml/min eGFR 68.19 BUN/Creatinine Ratio 14.5 (10-20) Glucose 164 H (70-99(Fasting)) mg/dl Calcium 9.5 (8.6-10.3) mg/dl Total Bilirubin 1.1 H (0.2-1.0) mg/dl AST 21 (13-39) U/L ALT 18 (7-52) U/L Alkaline Phosphatase 75 (34-104) U/L Troponin I High Sens 12.6 (0-14) pg/ml Total Protein 6.7 (6.0-8.3) gm/dl Albumin 3.7 (3.4-5.0) gm/dl Globulin 3.0 (2.5-4.0) gm/dl Albumin/Globulin Ratio 1.2 (0.9-2) Lipase 35 (11-82) U/L Urine Color Yellow Urine Appearance Cloudy A (Clear) Urine pH 7.5 (4.5-7.5) Ur Specific [place] 1.013 (1.000-1.030) Urine Protein Trace H (Negative) Urine Glucose (UA) Negative (Negative) Urine Ketones Negative (Negative) Urine Blood 2+ H (Negative) Urine Nitrite Positive A (Negative) Urine Bilirubin Negative (Negative) Urine Urobilinogen Negative (Negative) Ur Leukocyte Esterase 3+ H (Negative) Urine WBC (Auto) >50 H (0-5) /hpf Urine RBC (Auto) 11-20 H (0-2) /hpf U Hyaline Cast (Auto) 3-5 H (0-2) /lpf U Epithel Cells (Auto) 0-2 (0-2) /hpf Urine Bacteria (Auto) 4+ H (None Seen) Urine Comment Administered Medications Discontinued Medications Ceftriaxone Sodium (Rocephin) 2,000 mg in 50 mls @ 100 mls/hr IV NOW STA Stop: 11/07/24 12:23 Last Infusion: 11/07/24 13:41 Dose: Infused Documented By: Admin: 11/07/24 13:07 Dose: 100 mls/hr Documented By: KEVIN Imaging Data Radiologist's Impression: Head CT 11/07/24 09:50 CT head/brain wo con CLINICAL HISTORY: 88 years-old Female with shaky. Acutely altered mental status TECHNIQUE: Multiple axial CT images of the head were obtained without contrast. A dose lowering technique was utilized adhering to the principles of ALARA. CT DOSE: 625.8 mGy.cm COMPARISON: 10/05/2018 FINDINGS: No acute intracranial hemorrhage, midline shift, intracranial mass, hydrocephalus, territorial ischemia or abnormal extra-axial collection. Involutional changes with chronic microvascular ischemic disease. Motion degraded exam. The calvarium is intact. Trace right mastoid effusion. The left mastoid air cells are clear. IMPRESSION: No acute intracranial abnormality. ACT 112: Negative or not required by law. The above report was generated using voice recognition software. It may contain grammatical, syntax or spelling errors. Electronically signed by: Aneesh Banda M.D. 11/07/2024 10:35 AM Chest X-Ray 11/07/24 09:51 XR chest 1V portable HISTORY: 88 years-old Female Chest pain, nonspecific COMPARISON: 02/08/2022 TECHNIQUE: AP view of the chest FINDINGS: Cardiac silhouette is enlarged. Right lung apex partially obscured by bowel gas. Pulmonary vascular congestion with chronic interstitial coarsening. There is no pneumothorax, large pleural effusion or lobar airspace consolidation. Degenerative changes of the shoulders and spine. IMPRESSION: Cardiomegaly with pulmonary vascular congestion. ACT 112: Negative or not required by law. The above report was generated using voice recognition software. It may contain grammatical, syntax or spelling errors. Electronically signed by: Aneesh Banda M.D. 11/07/2024 10:08 AM Discharge Plan Visit Data Chief Complaint: Neuro Symptoms/Deficit Stated Complaint: Tremor ED Provider: Silvestre Novak Discharge Problem: Shakiness, Anemia Patient Disposition: Home - Self-Care Condition: Fair Discharge Instructions Activity Restrictions/Additional Instructions: Please follow up with your primary care doctor with in the next 24 hours. Any worsening of your symptoms, please return to the ED immediately. This includes any fevers greater than 100.4, worsening pain, chest pain, shortness breath, persistent nausea, vomiting, unable to eat or drink, or any other concerning signs or symptoms from your standpoint. You were found to have a blood pressure greater than 120 systolic over 90 diastolic. Due to the new Medicare guidelines, we are now recommending that you follow up with your primary care doctor in regards to this elevated blood pressure. Forms Stand Alone Forms: My [facility], Important Visit Information Prescriptions Prescriptions: No Action mecobalamin (vitamin B12) [B12 Active] 1,000 mcg tablet,chewable 1,000 mcg PO DAILY Qty: 30 0RF furosemide 20 mg tablet 60 mg PO DAILY Qty: 270 3RF ferrous sulfate [Feosol] 325 mg (65 mg iron) tablet 325 mg PO DAILY Qty: 90 1RF sertraline 50 mg tablet 50 mg PO DAILY Qty: 90 2RF metformin 1,000 mg tablet 1,000 mg PO BID Qty: 180 2RF atorvastatin 40 mg tablet 40 mg PO DAILY Qty: 90 1RF diltiazem HCl 120 mg capsule,extended release 24hr 120 mg PO DAILY Qty: 90 3RF pantoprazole 40 mg tablet,delayed release (DR/EC) 40 mg PO DAILY Qty: 90 1RF metoprolol succinate 100 mg tablet extended release 24 hr 100 mg PO DAILY Qty: 90 3RF Rx Instructions: Take w/ 50mg to equal 150mg daily digoxin 125 mcg (0.125 mg) tablet 125 mcg PO DAILY Qty: 90 1RF dorzolamide 2 % drops 1 drp OPR Q8 Metamucil (sugar) Powder 1 tbsp PO DAILY acetaminophen 500 mg capsule 1,000 mg PO UD PRN (Reason: Pain) Xarelto 20 mg tablet 20 mg PO DAILY Qty: 90 3RF Rx Instructions: must administer with evening meal loperamide [Imodium A-D] 2 mg capsule 2 mg PO Q6H PRN (Reason: Diarrhea) latanoprost 0.005 % drops 1 drp OPB HS metoprolol succinate 50 mg tablet extended release 24 hr 50 mg PO DAILY Rx Instructions: Take w/ 100mg to equal 150mg daily Referrals Referrals: Kimmie Pedroza DO [Primary Care Provider] - Discharge Problem: Anemia Qualifiers: Anemia type: unspecified type Qualified Code(s): D64.9 - Anemia, unspecified
[2024-11-07 10:08] LABS: Hematocrit (blood only) 35.8 % (37.0-47.0); Hemoglobin 11.4 g/dl (12.0-16.0); Immature Granulocytes # (auto) 0.35 K/uL (0.01-0.20); Immature Granulocytes % (auto) 4.5 %; Mean Corpuscular Hemoglobin 28.1 pg (25.0-34.0); Mean Corpuscular Volume 88.2 fL (80.0-100.0); Platelet Count 315 K/uL (130-400); RDW Standard Deviation 48.4 fL (36.4-46.3); Red Blood Count 4.06 M/uL (4.20-5.40); White Blood Count 7.74 K/ul (4.8-10.8)
--- NOTE | 2024-11-07 10:09 | XRay Report ---
XR chest 1V portable HISTORY: 88 years-old Female Chest pain, nonspecific COMPARISON: 02/08/2022 TECHNIQUE: AP view of the chest FINDINGS: Cardiac silhouette is enlarged. Right lung apex partially obscured by bowel gas. Pulmonary vascular c ongestion with chronic interstitial coarsening. There is no pneumothorax, large pleural effusion or l obar airspace consolidation. Degenerative changes of the shoulders and spine. IMPRESSION: Cardiomegaly with pulmonary vascular congestion. ACT 112: Negative or not required by law. The above report was generated using voice recognition software. It may contain grammatical, syntax o r spelling errors. Electronically signed by: Aneesh Banda M.D. 11/07/2024 10:08 AM
[2024-11-07 10:27] LABS: Alanine Aminotransferase 18.0 U/L (7-52); Albumin Globulin Ratio 1.2 (0.9-2); Alkaline Phosphatase 75.0 U/L (34-104); Anion Gap 7.0 (3-11); Bilirubin,Total 1.1 mg/dl (0.2-1.0); Blood Urea Nitrogen 12.0 mg/dl (6-23); Calcium 9.5 mg/dl (8.6-10.3); Carbon Dioxide 26.0 mmol/L (21-32); Chloride 105.0 mmol/L (98-107); Creatinine Clr Calc Pharmacy 48.9 ml/min; Globulin 3.0 gm/dl (2.5-4.0); Glucose 164.0 mg/dl (70-99(Fasting)); Lipase 35.0 U/L (11-82); Potassium 4.4 mmol/L (3.5-5.1); Sodium 138.0 mmol/L (136-145); Total Protein 6.7 gm/dl (6.0-8.3)
--- NOTE | 2024-11-07 10:37 | CT Scan Report ---
CT head/brain wo con CLINICAL HISTORY: 88 years-old Female with shaky. Acutely altered mental status TECHNIQUE: Multiple axial CT images of the head were obtained without contrast. A dose lowering tech nique was utilized adhering to the principles of ALARA. CT DOSE: 625.8 mGy.cm COMPARISON: 10/05/2018 FINDINGS: No acute intracranial hemorrhage, midline shift, intracranial mass, hydrocephalus, territorial ischem ia or abnormal extra-axial collection. Involutional changes with chronic microvascular ischemic disea se. Motion degraded exam. The calvarium is intact. Trace right mastoid effusion. The left mastoid air cells are clear. IMPRESSION: No acute intracranial abnormality. ACT 112: Negative or not required by law. The above report was generated using voice recognition software. It may contain grammatical, syntax o r spelling errors. Electronically signed by: Aneesh Banda M.D. 11/07/2024 10:35 AM
[2024-11-07 11:35] LABS: Appearance Urine Cloudy (Clear); Bacteria Urine Automated 4+ (None Seen); Epithelial Cell Urine Auto 0-2 /hpf (0-2); Glucose Urine UA Negative (Negative); WBC Urine Automated >50 /hpf (0-5)
[2024-11-07] MEDS: cefTRIAXone SODIUM 2,000 MG/50 ML BAG IV STA (13:07)
--- NOTE | 2024-11-07 17:50 | History & Physical Report ---
Date of Service November 07, 2024 Assessment & Plan (1) Shakiness: (2) Atrial fibrillation: (3) Dementia: (4) Diabetes mellitus, type 2: (5) Hyperlipidemia: (6) Hypertension: (7) Chronic anticoagulation: (8) Acute cystitis: Plan #Acute cystitis - admit to med/surge - s/p 1 dose of CTX 2g in the ED, cont - UCx pending - oral hydration #Shakiness - monitor for fevers - unclear etiology - fall precautions #Dementia c/b Encephalopathy - due to UTI - also discussed risk of hospital induced delirium - monitor at this time - TADA method: Tolerate some unusual method if they are safe, Anticipate potential triggers (hunger, pain, toileting, overstimulation, etc), Don't agita te (avoid unnecessary interventions, repeated questioning that could frustrate pt) - daughter aware to be present as tolerated (she has her elderly father at home who had recently gotten out of hospital) #HTN - BP elevated in the ED, though pt was not able to tolerate BP cuff due to pain - cont home BP meds at this time, monitor BP with manual reading #HLD - cont statin #AFib - cont rivaroxaban, diltiazem, digoxin, metoprolol #GERD - cont PPI #DM II - A1c: 7.1 (06/2024) - on metformin at home - will order sliding scale for now #DVT ppx: on rivaroxaban #Code status: DNR / DNI (daughter states this is per pt's living will) History of Present Illness Primary Care Provider: Kimmie Pedroza, DO 88 yo F with PMHx of LVH, mild to mod valvular heart disease, HLD, CVA, DM II, HTN, iron deficiency anemia, GIB (01/2024), permanent AFib, cognitive impairment. History mostly obtained from patient's daughter Kerline. She stated that this morning, she was agitated due to the presence of depends in the bathroom. This has been in the bathroom for long time and she was confused as to why it was there. Once she got to the kitchen, she wasn't confused as to why she was there, what the kitchen was for, etc. Then she stated that she feels white. To Kerline, pt appeared pale and looked like she was about to pass out. She then started having uncontrolled shaking and along with it, she couldn't catch her breath. She did not appear as though she was having trouble breathing. She did not have any unresponsive episode. Due to this, she called the EMS to bring pt to the hospital. Per EMS, pt had a 10 - 15 sec episode of shaking without loss of consciousness or confusion. 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 ER workup revealed pt has a UTI. Pt given 2g ceftriaxone and is requesting admission. Allergies Allergy/AdvReac Type Severity Reaction Status Date / Time No Known Allergies Allergy Verified 11/07/24 12:36 Home Medications Medication Instructions Recorded Confirmed Type latanoprost 0.005 % eye drops 1 drp OPB HS 10/05/18 11/07/24 History dorzolamide 2 % eye drops 1 drp OPR Q8 02/08/22 11/07/24 History mecobalamin (vitamin B12) 1,000 1,000 mcg PO DAILY #30 tabs 03/03/23 11/07/24 Rx mcg chewable tablet (B12 Active) psyllium seed (sugar) oral powder 1 tbsp PO DAILY 05/20/23 11/07/24 History (Metamucil (sugar) oral powder) acetaminophen 500 mg capsule 1,000 mg PO UD PRN Pain 10/06/23 11/07/24 History furosemide 20 mg tablet 60 mg (3 x 20 mg) PO DAILY #270 04/09/24 11/07/24 Rx tabs ferrous sulfate 325 mg (65 mg 325 mg PO DAILY #90 tabs 05/11/24 11/07/24 Rx iron) tablet (Feosol) sertraline 50 mg tablet 50 mg PO DAILY #90 tabs 05/31/24 11/07/24 Rx loperamide 2 mg capsule (Imodium 2 mg PO Q6H PRN Diarrhea 06/02/24 11/07/24 History A-D) atorvastatin 40 mg tablet 40 mg PO DAILY #90 tabs 06/09/24 11/07/24 Rx diltiazem HCl 120 mg 120 mg PO DAILY #90 caps 06/09/24 11/07/24 Rx capsule,extended release 24 hr metformin 1,000 mg tablet 1,000 mg PO BID #180 tabs 06/09/24 11/07/24 Rx pantoprazole 40 mg tablet,delayed 40 mg PO DAILY #90 tabs 06/10/24 11/07/24 Rx release rivaroxaban 20 mg tablet (Xarelto) 20 mg PO DAILY #90 tabs 08/10/24 11/07/24 Rx metoprolol succinate 100 mg 100 mg PO DAILY #90 tabs 09/30/24 11/07/24 Rx tablet,extended release 24 hr digoxin 125 mcg (0.125 mg) tablet 125 mcg PO DAILY #90 tabs 10/04/24 11/07/24 Rx metoprolol succinate 50 mg 50 mg PO DAILY 11/07/24 11/07/24 History tablet,extended release 24 hr Past Med/Surg History Problem List (Updated 11/07/24 @ 18:29 by Caro Melendrez MD) Acute cystitis Anemia (Acute) Shakiness (Acute) Atrial fibrillation Dementia Diabetes mellitus, type 2 (02/2023) Depression Hyperlipidemia Hypertension Chronic anticoagulation Hypercalcemia Anemia due to GI blood loss (Acute) Dyspnea on exertion B12 deficiency Diarrhea Binocular vision disorder with diplopia Ischemic stroke Lumbar spinal stenosis Lumbar disc disease Cerebral microvascular disease Anterolisthesis Anemia Medical History Hypomagnesemia Symptomatic anemia GI bleed Weight loss Mild cognitive impairment Glaucoma Pulmonary edema Atrial fibrillation with rapid ventricular response Surgical History S/P section H/O cataract extraction H/O neck surgery S/P lumbar fusion (12/2016) H/O: hysterectomy (2015) Family History Sister Alzheimer disease Father No problems noted. Mother Congestive heart failure Brother Diabetes Denies family history of Ovarian cancer Prostate cancer Myocardial infarction Breast cancer Lung cancer Colorectal cancer Social History Smoking Status: Never smoker Second Hand Exposure: No; Do You Dip or Chew Tobacco: No; Hx Alcohol Use: No Hx Substance Use: No Preferred Language: Slovenian Communication Ability: Impaired Visual Impairment: Limited Hearing Ability: Normal Soa Architect Required: No Beliefs That Will Affect Care: None marital status: Current Living Situation: Spouse current occupational status: retired How many Children do You have: 3 Feels Safe at Home: Yes Childhood Exposure to Second-Hand Smoke: Yes Diet: regular Diet Comment: regular caffeine: Yes (tea) during the past year weight has: remained stable Dental Care, Regularly: No Physical Activity Frequency: Does not Exercise Seatbelt Use: always Sunscreen Use: No Assistive Devices: None Review of Systems Review of Systems: Comprehensive ROS neg Physical Exam Physical Exam: Gen: no acute distress HEENT: NC/AT Lungs: CTAB CVS: s1s2nl, irregular Abd: nl bowel sounds, soft, NT : no garcia Ext: no edema Neuro: awake, alert, minimally conversational Psych: calm, cooperative Results & Data Results & Data Vital Signs (Past 12 Hours) Vital Signs Temp Pulse Pulse Resp BP BP Pulse Ox 11/07/24 17:06 82 21 174/80 H 99 11/07/24 16:00 73 22 167/89 H 94 11/07/24 15:30 75 17 168/89 H 94 11/07/24 15:00 77 16 172/86 H 11/07/24 14:31 77 16 167/80 H 11/07/24 13:30 142/66 H 11/07/24 13:21 81 17 93 11/07/24 13:00 68 17 169/68 H 92 11/07/24 11:55 78 16 142/66 H 94 11/07/24 11:33 75 20 183/81 H 11/07/24 11:00 72 20 171/103 H 11/07/24 10:36 75 18 193/93 H 94 11/07/24 09:55 72 16 161/93 H 97 11/07/24 09:55 97 11/07/24 09:54 71 11/07/24 09:51 72 16 97 11/07/24 09:50 37.0 C 72 16 161/93 H 97 11/07/24 09:48 161/93 H O2 Del Method 11/07/24 17:06 11/07/24 16:00 11/07/24 15:30 11/07/24 15:00 11/07/24 14:31 11/07/24 13:30 11/07/24 13:21 11/07/24 13:00 11/07/24 11:55 Room Air 11/07/24 11:33 11/07/24 11:00 11/07/24 10:36 11/07/24 09:55 Room Air 11/07/24 09:55 Room Air 11/07/24 09:54 11/07/24 09:51 Room Air 11/07/24 09:50 Room Air 11/07/24 09:48 PG Care Time/CCT Total # of Minutes Spent Total Time Spent with Patient: Total time spent is greater than 50% in coordination of care (as documented) at patient's floor/unit and/or counseling patient: Coding Level of Care Code 23408 INT INP/OBS CARE 375MIN Diagnoses Shakiness R25.1 Permanent atrial fibrillation I48.21 Atrial fibrillation type: permanent Dementia F03.90 Diabetes mellitus, type 2 E11.9 Mixed hyperlipidemia E78.2 Hyperlipidemia type: mixed hyperlipidemia Hypertension I10 Hypertension type: unspecified Chronic anticoagulation Z79.01 Acute cystitis N30.00 (2) Atrial fibrillation Atrial fibrillation type: permanent Qualified Code(s): I48.21 - Permanent atr ial fibrillation (5) Hyperlipidemia Hyperlipidemia type: mixed hyperlipidemia Qualified Code(s): E78.2 - Mixed hyperlipidemia (6) Hypertension Hypertension type: unspecified Qualified Code(s): I10 - Essential (primary) hypertension
[2024-11-07] MEDS ORDERED: GLUCOSE 10 TAB/TUBE PO PRN (20:17)
[2024-11-07] MEDS ORDERED: CARBOHYDRATES FOR HYPOGLYCEMIA PO PRN (20:17)
[2024-11-07] MEDS ORDERED: ACETAMINOPHEN 325 MG TAB PO PRN (20:17)
[2024-11-07] MEDS ORDERED: GLUCOSE 40% GEL 15 GM TUBE PO PRN (20:17)
[2024-11-07] MEDS ORDERED: GLUCAGON FOR INJ 1 MG VIAL SQ PRN (20:17)
[2024-11-07] MEDS ORDERED: DEXTROSE 50% 50 ML SYRINGE IV PRN (20:17)
[2024-11-07] MEDS ORDERED: ONDANSETRON INJ 2 MG/ML 2 ML VIAL IV PRN (20:17)
[2024-11-07] MEDS: INSULIN ASPART PER UNIT CHARGE SC SCH (22:00)
[2024-11-07] MEDS: LATANOPROST 0.005% OP SOLN 2.5 ML BTL OPB SCH (22:01)
[2024-11-07] MEDS: DORZOLAMIDE HCL 2% OPH SOLN 10 ML BTL OPR SCH (22:01)
[2024-11-08] MEDS: FUROSEMIDE 20 MG TAB PO SCH (08:16)
[2024-11-08] MEDS: FERROUS SULFATE 325 MG TAB PO SCH (08:17)
[2024-11-08] MEDS: METOPROLOL SUCC 50MG EXT REL TAB PO SCH (08:17)
--- NOTE | 2024-11-08 08:17 | Electrocardiogram Report ---
Test Reason : Blood Pressure : */* mmHG Vent. Rate : 74 BPM Atrial Rate : * BPM P-R Int : * ms QRS Dur : 76 ms QT Int : 364 ms P-R-T Axes : * 21 233 degrees QTcB Int : 404 ms Atrial fibrillation Abnormal ECG When compared with ECG of 05-Feb-2024 05:24, No significant change was found Confirmed by Flor Whipple (Fernando) on 11/08/2024 8:16:39 AM Referred By: Confirmed By: Flor Whipple
[2024-11-08] MEDS: ATORVASTATIN 40 MG TAB PO SCH (08:18)
[2024-11-08] MEDS: SERTRALINE HCL 50 MG TABLET PO SCH (08:18)
[2024-11-08] MEDS: DIGOXIN 0.125 MG TAB PO SCH (08:18)
[2024-11-08] MEDS: CYANOCOBALAMIN (B-12) 500 MCG TABLET PO SCH (08:18)
[2024-11-08] MEDS: RIVAROXABAN 20 MG TAB PO SCH (08:20)
--- NOTE | 2024-11-08 10:56 | Hospitalist Progress Note ---
"Date of Service November 08, 2024 Assessment & Plan (1) Acute cystitis: (2) Atrial fibrillation: (3) Dementia: (4) Diabetes mellitus, type 2: (5) Hyperlipidemia: (6) Hypertension: Plan 85 year old female admitted for AMS and found to have a UTI. Head CT with no acute intracranial abnormalities. Confusion is improving with treatment of UTI. #Acute cystitis - s/p 1 dose of CTX 2g in the ED, cont - UCx with klebsiella pneumoniae, sensitivities pending - Continue to encourage oral hydration #Dementia | Acute Metabolic encephalopathy due to UTI - Delirium prevention strategies - TADA method: Tolerate some unusual method if they are safe, Anticipate potential triggers (hunger, pain, toileting, overstimulation, etc), Don't agitate (avoid unnecessary interventions, repeated questioning that could frustrate pt) #HTN - BP elevated in the ED, though pt was not able to tolerate BP cuff due to pain - cont home BP meds at this time, monitor BP with manual reading - improved most recently 136/69 #HLD - cont statin #A Fib - cont rivaroxaban, diltiazem, digoxin, metoprolol #GERD - cont PPI #DM II - A1c: 7.1% in 06/2024 - on metformin at home - Continue sliding scale while admitted DVT ppx: on rivaroxaban Dispo: Possible discharge home tomorrow 11/09 Updated son at bedside Admission and Anticipated Discharge Date Admission Date: November 07, 2024 Subjective Patient seen and evaluated at bedside with her son present. She is still somewhat confused, but improved compared to on admission per her son. She is alert to person, place, and event, but not time. We discussed her confusion is secondary to her UTI. Also discussed her treatment plan of IV antibiotics with transition to oral antibiotics when urine culture sensitivities result with possible discharge home tomorrow 11/09. Tea and her son are understanding and in agreement with the plan. No additional complaints or concerns at this time. Physical Exam Physical Exam: General: No acute distress, nondiaphoretic, well-developed, well-nourished. Skin: Warm, dry. No rashes or peripheral edema noted. Cardiac: Irregular rhythm, rate controlled. No murmurs gallops or rubs. Pulm: Clear to auscultation bilaterally without wheezes, rales or rhonchi. Normal respiratory effort. 95% on room air. Abdominal: Soft, nontender, nondistended. Bowel sounds presesnt. Neuro: A&O x3 (person, place, event; not time). No focal neurological deficits. Results & Data Results & Data Vital Signs (Past 12 Hours) Vital Signs Temp Pulse Pulse Resp BP Pulse Ox O2 Del Method 11/08/24 08:30 Room Air 11/08/24 08:18 91 H 11/08/24 07:02 98.1 F 82 16 166/72 H 95 Room Air Laboratory Results Reviewed UA/urine culture Diagnostic Findings Reviewed head CT, CXR PG Care Time/CCT Total # of Minutes Spent Total Time Spent with Patient: Total time spent is greater than 50% in coordination of care (as documented) at patient's floor/unit and/or counseling patient: Coding Level of Care Code 94441 SUB INP/OBS CARE 3/50MIN Diagnoses Acute cystitis N30.00 Permanent atrial fibrillation I48.21 Atrial fibrillation type: permanent Dementia F03.90 Diabetes mellitus, type 2 E11.9 Mixed hyperlipidemia E78.2 Hyperlipidemia type: mixed hyperlipidemia Hypertension I10 Hypertension type: unspecified (2) Atrial fibrillation Atrial fibrillation type: permanent Qualified Code(s): I48.21 - Permanent atrial fibrillation (5) Hyperlipidemia Hyperlipidemia type: mixed hyperlipidemia Qualified Code(s): E78.2 - Mixed hyperlipidemia (6) Hypertension Hypertension type: unspecified Qualified Code(s): I10 - Essential (primary) hypertension"
[2024-11-08 11:31] LABS: Hematocrit (blood only) 37.7 % (37.0-47.0); Hemoglobin 12.4 g/dl (12.0-16.0); Mean Corpuscular Hemoglobin 28.4 pg (25.0-34.0); Mean Corpuscular Volume 86.3 fL (80.0-100.0); Platelet Count 361 K/uL (130-400); RDW Standard Deviation 46.9 fL (36.4-46.3); Red Blood Count 4.37 M/uL (4.20-5.40); White Blood Count 7.58 K/ul (4.8-10.8)
[2024-11-08 11:41] LABS: Anion Gap 8.0 (3-11); Blood Urea Nitrogen 10.0 mg/dl (6-23); Calcium 9.9 mg/dl (8.6-10.3); Carbon Dioxide 23.0 mmol/L (21-32); Chloride 108.0 mmol/L (98-107); Creatinine Clr Calc Pharmacy 57.2 ml/min; Glucose 229.0 mg/dl (70-99(Fasting)); Magnesium 2.0 mg/dl (1.7-2.4); Potassium 4.0 mmol/L (3.5-5.1); Sodium 139.0 mmol/L (136-145)
[2024-11-08] MEDS: cefTRIAXone SODIUM 2,000 MG/50 ML BAG IV SCH (13:18)
[2024-11-08 23:00] VITALS: O2SAT 95
[2024-11-09 06:59] VITALS: BP 166/67; PULSE 66; RESP 16; TEMP 98.6
[2024-11-09 08:00] LABS: Hematocrit (blood only) 39.0 % (37.0-47.0); Hemoglobin 13.1 g/dl (12.0-16.0); Mean Corpuscular Hemoglobin 28.9 pg (25.0-34.0); Mean Corpuscular Volume 86.1 fL (80.0-100.0); Platelet Count 366 K/uL (130-400); RDW Standard Deviation 46.1 fL (36.4-46.3); Red Blood Count 4.53 M/uL (4.20-5.40); White Blood Count 9.68 K/ul (4.8-10.8)
[2024-11-09 08:31] LABS: Anion Gap 8.0 (3-11); Blood Urea Nitrogen 11.0 mg/dl (6-23); Calcium 9.7 mg/dl (8.6-10.3); Carbon Dioxide 22.0 mmol/L (21-32); Chloride 108.0 mmol/L (98-107); Creatinine Clr Calc Pharmacy 50.8 ml/min; Glucose 184.0 mg/dl (70-99(Fasting)); Potassium 4.1 mmol/L (3.5-5.1); Sodium 138.0 mmol/L (136-145)
[2024-11-09] MEDS: AMOXICILLIN/CLAVULANATE 875 MG TAB PO SCH (09:16)
--- NOTE | 2024-11-09 14:32 | Discharge Summary ---
"Discharge Summary Date of Service November 09, 2024 Principal Dx & Hospital Course #1 = Principal Diagnosis (1) Acute cystitis: (2) Atrial fibrillation: (3) Dementia: (4) Diabetes mellitus, type 2: (5) Hyperlipidemia: (6) Hypertension: Plan 85 year old female admitted for AMS and found to have a UTI. Head CT with no acute intracranial abnormalities. Confusion is improving with treatment of UTI. #Acute cystitis - Urine culture grew pansensitive Klebsiella pneumoniae - Initially treated with IV ceftriaxone then transitioned to Augmentin twice daily through 11/11 to complete course #Dementia | Acute Metabolic encephalopathy due to UTI - Delirium prevention strategies - TADA method: Tolerate some unusual method if they are safe, Anticipate potential triggers (hunger, pain, toileting, overstimulation, etc), Don't agitate (avoid unnecessary interventions, repeated questioning that could frustrate pt) - Anticipate acute confusion to improve with completion of antibiotics and return to usual environment #HTN - BP elevated in the ED, though pt was not able to tolerate BP cuff due to pain - cont home BP meds at this time - Continue to monitor blood pressure in outpatient setting and adjust regimen as needed #HLD - cont statin #A Fib - cont rivaroxaban, diltiazem, digoxin, metoprolol #GERD - cont PPI #DM II - A1c: 7.1% in 06/2024 - on metformin at home, resumed on discharge - Continue sliding scale while admitted DVT ppx: on rivaroxaban Dispo: Discharged home 11/09 Discussed discharge plan with patient's daughter via phone call Notes For Next Care Provider Monitor blood pressure and adjust regimen as needed Medication Changes From Visit Augmentin twice daily through 11/11 Admission HPI Per Admitting Provider 88 yo F with PMHx of LVH, mild to mod valvular heart disease, HLD, CVA, DM II, HTN, iron deficiency anemia, GIB (01/2024), permanent AFib, cognitive impairment. History mostly obtained from patient's daughter Kerline. She stated that this morning, she was agitated due to the presence of depends in the bathroom. This has been in the bathroom for long time and she was confused as to why it was there. Once she got to the kitchen, she wasn't confused as to why she was there, what the kitchen was for, etc. Then she stated that she feels white. To Kerline, pt appeared pale and looked like she was about to pass out. She then started having uncontrolled shaking and along with it, she couldn't catch her breath. She did not appear as though she was having trouble breathing. She did not have any unresponsive episode. Due to this, she called the EMS to bring pt to the hospital. Per EMS, pt had a 10 - 15 sec episode of shaking without loss of consciousness or confusion. 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 ER workup revealed pt has a UTI. Pt given 2g ceftriaxone and is requesting admission. Discharge Exam General: No acute distress, nondiaphoretic, well-developed, well-nourished. Skin: Warm, dry. No rashes or peripheral edema noted. Cardiac: Irregular rhythm, rate controlled. No murmurs gallops or rubs. Pulm: Clear to auscultation bilaterally without wheezes, rales or rhonchi. Normal respiratory effort. 95% on room air. Abdominal: Soft, nontender, nondistended. Bowel sounds present. Neuro: A&O x2 (person, place; not time or event). No focal neurological deficits. Discharge Plan Discharge Items Patient Disposition: Home - Self-Care Reason For Visit: UTI Discharge Diagnosis: UTI Condition on Discharge: Fair Activity: Resume your previous activity Non-emergency contact: Primary Care Provider Call non-emergency contact if: you have any medication questions and your symptoms worsen Follow-up/Referrals: Kimmie Pedroza DO [Primary Care Provider] - 11/15/24 9:20 am (Jay Khalil) Diet: Carb Consistent or DM2 and Heart Healthy Addtl Attending Provider Instructions: Tea, You were admitted to the hospital with an altered mental status and were found to have a UTI. You had a head CT done that showed no acute intracranial abnormalities. Your confusion improved with treatment of your UTI. You are treated with IV antibiotics while in the hospital and will continue on oral antibiotics to complete your course. Upon discharge from the hospital: * Take Augmentin (oral antibiotic) twice daily with meals through 11/11/2024. You already received your morning dose today (11/09) so you only need to take your evening dose tonight. Take this antibiotic until it is gone. Not finishing your course of antibiotics can result in the infection returning and/or can make future infections harder to treat. Antibiotics can cause GI upset, that is why it is recommended to take it with food. * Continue your other home medications as prescribed. There have been no changes to your usual home medications. * Follow-up with your PCP in 1-2 weeks. Please return to the hospital if you experience any of the following: Worsening of your confusion, chest pain, difficulty breathing, persistent nausea with vomiting, passing out, or any other symptoms concerning for you. It was a pleasure taking care of you while you were in the hospital! Pending Studies at Discharge: No Stand-Alone Forms: My [facility], Smoking Cessation Medications and DC Order Prescriptions: New amoxicillin-pot clavulanate 875-125 mg Tablet 1 tab PO BIDM Qty: 5 0RF Continued mecobalamin (vitamin B12) [B12 Active] 1,000 mcg tablet,chewable 1,000 mcg PO DAILY Qty: 30 0RF furosemide 20 mg tablet 60 mg PO DAILY Qty: 270 3RF ferrous sulfate [Feosol] 325 mg (65 mg iron) tablet 325 mg PO DAILY Qty: 90 1RF sertraline 50 mg tablet 50 mg PO DAILY Qty: 90 2RF metformin 1,000 mg tablet 1,000 mg PO BID Qty: 180 2RF atorvastatin 40 mg tablet 40 mg PO DAILY Qty: 90 1RF diltiazem HCl 120 mg capsule,extended release 24hr 120 mg PO DAILY Qty: 90 3RF pantoprazole 40 mg tablet,delayed release (DR/EC) 40 mg PO DAILY Qty: 90 1RF metoprolol succinate 100 mg tablet extended release 24 hr 100 mg PO DAILY Qty: 90 3RF Rx Instructions: Take w/ 50mg to equal 150mg daily digoxin 125 mcg (0.125 mg) tablet 125 mcg PO DAILY Qty: 90 1RF dorzolamide 2 % drops 1 drp OPR Q8 Metamucil (sugar) Powder 1 tbsp PO DAILY acetaminophen 500 mg capsule 1,000 mg PO UD PRN (Reason: Pain) Xarelto 20 mg tablet 20 mg PO DAILY Qty: 90 3RF Rx Instructions: must administer with evening meal loperamide [Imodium A-D] 2 mg capsule 2 mg PO Q6H PRN (Reason: Diarrhea) latanoprost 0.005 % drops 1 drp OPB HS metoprolol succinate 50 mg tablet extended release 24 hr 50 mg PO DAILY Rx Instructions: Take w/ 100mg to equal 150mg daily Discharge Orders: Discharge Order (Routine); Ordered 11/09/24 Ordered By: Natalia Espino Admission Data Admit Date/Time: 11/07/24 18:45 Attending Provider: Natalia Jacobo Admit Provider: Caro Melendrez Primary Care Provider: Kimmie Pedroza Other Providers: Oliver Rivers Other Interventions: Discharge Summary Assessment (RN) Last Done: 11/09/24 10:50 Hospital Stay Data Consultations 11/07/24 12:10 ED Decision to Admit Stat Diagnostic Imagining Performed Head CT 11/07/24 09:50 CT head/brain wo con CLINICAL HISTORY: 88 years-old Female with shaky. Acutely altered mental status TECHNIQUE: Multiple axial CT images of the head were obtained without contrast. A dose lowering technique was utilized adhering to the principles of ALARA. CT DOSE: 625.8 mGy.cm COMPARISON: 10/05/2018 FINDINGS: No acute intracranial hemorrhage, midline shift, intracranial mass, hydrocephalus, territorial ischemia or abnormal extra-axial collection. Involutional changes with chronic microvascular ischemic disease. Motion degraded exam. The calvarium is intact. Trace right mastoid effusion. The left mastoid air cells are clear. IMPRESSION: No acute intracranial abnormality. ACT 112: Negative or not required by law. The above report was generated using voice recognition software. It may contain grammatical, syntax or spelling errors. Electronically signed by: Aneesh Banda M.D. 11/07/2024 10:35 AM Chest X-Ray 11/07/24 09:51 XR chest 1V portable HISTORY: 88 years-old Female Chest pain, nonspecific COMPARISON: 02/08/2022 TECHNIQUE: AP view of the chest FINDINGS: Cardiac silhouette is enlarged. Right lung apex partially obscured by bowel gas. Pulmonary vascular congestion with chronic interstitial coarsening. There is no pneumothorax, large pleural effusion or lobar airspace consolidation. Degenerative changes of the shoulders and spine. IMPRESSION: Cardiomegaly with pulmonary vascular congestion. ACT 112: Negative or not required by law. The above report was generated using voice recognition software. It may contain grammatical, syntax or spelling errors. Electronically signed by: Aneesh Banda M.D. 11/07/2024 10:08 AM Pending Results Patient Have Any Pending Studies at Discharge: No Discharge Instructions Given to Patient (Per Discharging Provider) Tea, You were admitted to the hospital with an altered mental status and were found to have a UTI. You had a head CT done that showed no acute intracranial abnormalities. Your confusion improved with treatment of your UTI. You are treated with IV antibiotics while in the hospital and will continue on oral antibiotics to complete your course. Upon discharge from the hospital: * Take Augmentin (oral antibiotic) twice daily with meals through 11/11/2024. You already received your morning dose today (11/09) so you only need to take your evening dose tonight. Take this antibiotic until it is gone. Not finishing your course of antibiotics can result in the infection returning and/or can make future infections harder to treat. Antibiotics can cause GI upset, that is why it is recommended to take it with food. * Continue your other home medications as prescribed. There have been no changes to your usual home medications. * Follow-up with your PCP in 1-2 weeks. Please return to the hospital if you experience any of the following: Worsening of your confusion, chest pain, difficulty breathing, persistent nausea with vomiting, passing out, or any other symptoms concerning for you. It was a pleasure taking care of you while you were in the hospital! Total Time Total Time Spent Total Time Spent (In Minutes): Greater than 30 minutes spent completing this discharge process including direct patient care, medication reconciliation, documentation, review of labs and images, and coordination of care. Coding Level of Care Code 05016 INP/OBS DISCH >30 MIN Diagnoses Acute cystitis N30.00 Permanent atrial fibrillation I48.21 Atrial fibrillation type: permanent Dementia F03.90 Diabetes mellitus, type 2 E11.9 Mixed hyperlipidemia E78.2 Hyperlipidemia type: mixed hyperlipidemia Hypertension I10 Hypertension type: unspecified"
== END 2024-11-09 13:10 | disposition home or self-care (01) | DRG 689 ==
LOC: ED 09:42 → SUATTDRO 18:45 → 3W 18:45